=== PATIENT | male | born 1955 | race Caucasian/White ===

== ENCOUNTER 2019-10-24 12:55 | Inpatient (IN) | payer MEDICARE, OTHER ==
[2019-10-24] VITALS (10 sets, daily range): BP systolic 85–115; BP diastolic 54–75
[~2019-10-24] VITALS: Ht 170.2 cm; Wt 97.9 kg
--- NOTE | 2019-10-24 13:21 | RAD ---
PORTABLE CHEST 1V INDICATION: Syncope and fall. COMPARISON STUDY: None. FINDINGS: Lungs: Normal lung volume. No pulmonary mass or consolidation. The tracheobronchial tree and hilar structures are normal. Pleura: No pleural effusion or pneumothorax. Heart and Mediastinum: The cardiomediastinal silhouette is normal. The great vessels of the thorax are normal. IMPRESSION: No acute cardiopulmonary process. Electronically signed by: Gaurang Rosales MD (10/24/2019 1:17 PM) [id number]
[2019-10-24 13:32] LABS: BASO # 0.1 x10^3/uL (0.0-0.2); BASO % 1 % (0-3); EOS % 0 % (0-3); HEMATOCRIT 37.7 % (39.0-53.0); HEMOGLOBIN 13.1 g/dL (13.0-17.5); LYMPH # 0.9 x10^3/uL (1.0-4.8); LYMPH % 12 % (24-48); MEAN CORPUSCULAR HEMOGLOBIN 33 pg (25-35); MEAN CORPUSCULAR HGB CONC 35 g/dL (31-37); MEAN CORPUSCULAR VOLUME 95 fL (79-100); MONO # 0.5 x10^3/uL (0.0-1.1); MONO % 7 % (0-9); NEUT # 5.8 x10^3/uL (1.8-7.7); NEUT % 80 % (31-73); PLATELET COUNT 184 x10^3/uL (140-400); RED BLOOD COUNT 3.98 x10^6/uL (4.30-5.70); RED CELL DISTRIBUTION WIDTH 13.9 % (11.5-14.5); WHITE BLOOD COUNT 7.3 x10^3/uL (4.0-11.0)
--- NOTE | 2019-10-24 13:39 | RAD ---
CT HEAD AND CERVICAL SPINE WO Date: 10/24/2019 12:57 PM Clinical Indication: Syncope, fall, pain Comparison: None. Technique: 5 mm axial tomographic images were obtained of the head without contrast. These were viewed on brain and bone windows. CT imaging of the cervical spine was performed without contrast. Coronal and sagittal reformatted images were performed. One or more of the following dose reduction techniques were utilized: Automated exposure control (AEC), Adjustment of mA and/or kV according to patient size, Use of iterative reconstruction technique such as ASiR, CT scan done according to ALARA and image gently/image wisely HEAD FINDINGS: The brain parenchyma is normal in attenuation. No intra- or extra-axial mass or fluid collection. No acute hemorrhage. The ventricles are normal in size, shape, and morphology. The carcamo-white matter junction is normal. The basilar cisterns are patent. The visualized paranasal sinuses are normal. The visualized portions of the orbits and globes are normal. The mastoid air cells are clear. No aggressive osseous lesion or fracture. CERVICAL SPINE FINDINGS: Right convex curvature. No acute fracture. No aggressive lytic or blastic osseous lesion. Moderate multilevel degenerative disc height loss. Multilevel disc protrusions and marginal osteophytes results in multilevel mild spinal canal stenosis. Multilevel uncovertebral and moderate to severe facet arthrosis results in multilevel moderate and severe neural foraminal narrowing. The thyroid gland is normal. No cervical lymphadenopathy. The visualized aerodigestive tract is unremarkable. The visualized lung apices are clear. IMPRESSION: 1. No acute intracranial process. 2. No acute osseous abnormality of the cervical spine. Electronically signed by: Gaurang Rosales MD (10/24/2019 1:36 PM) [id number]
[2019-10-24 13:46] LABS: PROTHROMBIN TIME PATIENT 14.7 SEC (11.7-14.0)
[2019-10-24 13:56] LABS: ALBUMIN 2.5 g/dL (3.4-5.0); ALBUMIN/GLOBULIN RATIO 0.7 (1.0-1.7); CALCIUM 7.7 mg/dL (8.5-10.1); CREATININE 1.4 mg/dL (0.7-1.3); GFR 50.9; MAGNESIUM 1.7 mg/dL (1.8-2.4); POTASSIUM 3.6 mmol/L (3.5-5.1); TOTAL BILIRUBIN 3.8 mg/dL (0.2-1.0)
[2019-10-24] MEDS ORDERED: DIPH,PERTUSS(ACELL),TET VAC/PF 0.5 ML SYRINGE. VAX IM ONE (14:00)
[2019-10-24] MEDS ORDERED: IV NORMAL SALINE 1000ML BAG 1,000 ML IV ONE ×2 (14:00→14:15)
--- NOTE | 2019-10-24 14:16 | PHYS DOC ---
Past Medical History Past Medical History: Cancer, Hypertension, [place] Additional Past Medical Histor: KIDNEY CA Additional Past Surgical Histo: HERNIA Smoking Status: Former Smoker Alcohol Use: Occasionally General Adult EDM: Chief Complaint: SYNCOPE HPI: HPI: Patient is a 64 year old male with history of hypertension, coronary artery disease, right kidney cancer who presents via EMS with complaining of syncope. Patient states he was at work and around 1140 felt dizzy and did not lose his conscious but had a fall from his truck and, of the customary next door saw him and took him inside and called 911. Patient denies chest pain, shortness of breath, focal neuro deficit, history of the same problem, recent dehydration, fever and chills. Patient denies any pain at arrival. Patient brought into ER by EMS at 1300 with report of unwitnessed syncope and fall. Patient is not up-to-date with tetanus immunization. Review of Systems: Review of Systems: Constitutional: Denies fever or chills. [] Eyes: Denies change in visual acuity. [] HENT: Denies nasal congestion or sore throat. [] Respiratory: Denies cough or shortness of breath. [] Cardiovascular: Denies chest pain or edema. [] GI: Denies abdominal pain, nausea, vomiting, bloody stools or diarrhea. [] : Denies dysuria. [] Musculoskeletal: Denies back pain or joint pain. [] Integument: Denies rash. [] Neurologic: Denies headache, focal weakness or sensory changes. [] Endocrine: Denies polyuria or polydipsia. [] Lymphatic: Denies swollen glands. [] Psychiatric: Denies depression or anxiety. [] Heart Score: Risk Factors: Risk Factors: DM, Current or recent (<one month) smoker, HTN, HLP, family history of CAD, obesity. Risk Scores: Score 0 - 3: 2.5% MACE over next 6 weeks - Discharge Home Score 4 - 6: 20.3% MACE over next 6 weeks - Admit for Clinical Observation Score 7 - 10: 72.7% MACE over next 6 weeks - Early Invasive Strategies Current Medications: Current Medications Medications (Trade) Dose Ordered Sig/Lan Start Time Stop Time Status Last Admin Dose Admin Diphtheria/ Tetanus/Acell Pertussis (ADACEL TDap SYRINGE) 0.5 ml ONCE ONCE 10/24/19 14:00 10/24/19 14:02 DC 10/24/19 14:13 0.5 ML Sodium Chloride 1,000 ml @ 1,000 mls/hr 1X ONCE 10/24/19 14:15 10/24/19 15:14 UNV Allergies: Allergies: Allergies Coded Allergies Type Severity Reaction Last Updated Verified No Known Drug Allergies 10/24/19 No Physical Exam: PE: Constitutional: Well developed, well nourished, milde distress, non-toxic appearance. [] HENT: Normocephalic, lower lip contusion and a small abrasion, no tongue injury, right facial contusion, bilateral external ears normal, oropharynx moist, no oral exudates, nose normal. [] Eyes: PERRLA, EOMI, conjunctiva normal, no discharge, mild jaundice. [] Neck: Normal range of motion, no tenderness, supple, no stridor. [] Cardiovascular: Tachycardia, no murmur [] Lungs & Thorax: Bilateral breath sounds clear to auscultation [] Abdomen: Bowel sounds normal, soft, no tenderness, no masses, no pulsatile masses. [] Skin: Warm, dry, no erythema, no rash. [] Back: No tenderness, no CVA tenderness. [] Extremities: Right hand with several abrasion without laceration, no tenderness, no cyanosis, no clubbing, ROM intact, no edema. [] Neurologic: Alert and oriented X 3, normal motor function, normal sensory function, no focal deficits noted. [] Psychologic: Affect normal, judgement normal, mood normal. [] Current Patient Data: Labs: Laboratory Tests Test 10/24/19 12:05 10/24/19 13:05 D-Dimer (Ellen) 2.23 ug/mlFEU (0.00-0.50) H White Blood Count 7.3 x10^3/uL (4.0-11.0) Red Blood Count 3.98 x10^6/uL (4.30-5.70) L Hemoglobin 13.1 g/dL (13.0-17.5) Hematocrit 37.7 % (39.0-53.0) L Mean Corpuscular Volume 95 fL (79-100) Mean Corpuscular Hemoglobin 33 pg (25-35) Mean Corpuscular Hemoglobin Concent 35 g/dL (31-37) Red Cell Distribution Width 13.9 % (11.5-14.5) Platelet Count 184 x10^3/uL (140-400) Neutrophils (%) (Auto) 80 % (31-73) H Lymphocytes (%) (Auto) 12 % (24-48) L Monocytes (%) (Auto) 7 % (0-9) Eosinophils (%) (Auto) 0 % (0-3) Basophils (%) (Auto) 1 % (0-3) Neutrophils # (Auto) 5.8 x10^3/uL (1.8-7.7) Lymphocytes # (Auto) 0.9 x10^3/uL (1.0-4.8) L Monocytes # (Auto) 0.5 x10^3/uL (0.0-1.1) Eosinophils # (Auto) 0.0 x10^3/uL (0.0-0.7) Basophils # (Auto) 0.1 x10^3/uL (0.0-0.2) Prothrombin Time 14.7 SEC (11.7-14.0) H Prothrombin Time INR 1.2 (0.8-1.1) H Sodium Level 114 mmol/L (136-145) *L Potassium Level 3.6 mmol/L (3.5-5.1) Chloride Level 81 mmol/L (98-107) L Carbon Dioxide Level 15 mmol/L (21-32) L Anion Gap 18 (6-14) H Blood Urea Nitrogen 12 mg/dL (8-26) Creatinine 1.4 mg/dL (0.7-1.3) H Estimated GFR (Cockcroft-Gault) 50.9 BUN/Creatinine Ratio 9 (6-20) Glucose Level 171 mg/dL (70-99) H Lactic Acid Level 7.4 mmol/L (0.4-2.0) *H Calcium Level 7.7 mg/dL (8.5-10.1) L Magnesium Level 1.7 mg/dL (1.8-2.4) L Total Bilirubin 3.8 mg/dL (0.2-1.0) H Aspartate Amino Transferase (AST) 215 U/L (15-37) H Alanine Aminotransferase (ALT) 126 U/L (16-63) H Alkaline Phosphatase 374 U/L (46-116) H Creatine Kinase 849 U/L (39-308) H Troponin I Quantitative < 0.017 ng/mL (0.000-0.055) ZT-Own-Z-Type Natriuretic Peptide 351 pg/mL (0-124) H Total Protein 6.0 g/dL (6.4-8.2) L Albumin 2.5 g/dL (3.4-5.0) L Albumin/Globulin Ratio 0.7 (1.0-1.7) L Laboratory Tests 10/24/19 13:05 Laboratory Tests 10/24/19 13:05 Vital Signs: Vital Signs Date Time Temp Pulse Resp B/P (MAP) Pulse Ox O2 Delivery O2 Flow Rate FiO2 10/24/19 13:54 87 91/54 (66) 98 Room Air 10/24/19 12:55 98.4 18 98.4 EKG: EKG: EKG interpreted by me. EKG at 1301 showed sinus tachycardia at rate of 102, left atrial abnormality, l low voltage QRS, poor R wave progression anteroseptal leads, no acute ST and T wave elevation. Radiology/Procedures: Radiology/Procedures: [address] [address] IMAGING REPORT Signed PATIENT: RUSTY JOSEPH RACCOUNT: [id number] : 1955 LOCATION: ER AGE: 64 SEX: M EXAM STATUS: PRE ER ORD. PHYSICIAN: KATERYNA FERNANDEZ MD REASON: Syncope and fall PROCEDURE: PORTABLE CHEST 1V PORTABLE CHEST 1V INDICATION: Syncope and fall. COMPARISON STUDY: None. FINDINGS: Lungs: Normal lung volume. No pulmonary mass or consolidation. The tracheobronchial tree and hilar structures are normal. Pleura: No pleural effusion or pneumothorax. Heart and Mediastinum: The cardiomediastinal silhouette is normal. The great vessels of the thorax are normal. IMPRESSION: No acute cardiopulmonary process. Electronically signed by: Roberto Rosales MD (10/24/2019 1:17 PM) [id number] DICTATED and SIGNED BY: ROBERTO ROSALES MD DATE: 10/24/[address] [address] IMAGING REPORT Signed PATIENT: RUSTY JOSEPH RACCOUNT: [id number] : 1955 LOCATION: ER AGE: 64 SEX: M EXAM STATUS: PRE ER ORD. PHYSICIAN: KATERYNA FERNANDEZ MD REASON: Syncope and fall PROCEDURE: PORTABLE CHEST 1V PORTABLE CHEST 1V INDICATION: Syncope and fall. COMPARISON STUDY: None. FINDINGS: Lungs: Normal lung volume. No pulmonary mass or consolidation. The tracheobronchial tree and hilar structures are normal. Pleura: No pleural effusion or pneumothorax. Heart and Mediastinum: The cardiomediastinal silhouette is normal. The great vessels of the thorax are normal. IMPRESSION: No acute cardiopulmonary process. Electronically signed by: Roberto Rosales MD (10/24/2019 1:17 PM) [id number] DICTATED and SIGNED BY: ROBERTO ROSALES MD DATE: 10/24/191316 Course & Med Decision Making: Course & Med Decision Making Pertinent Labs and Imaging studies reviewed. (See chart for details) Evaluation of patient in ER showed 64-year-old male patient with syncope and fall with injury to his face. Patient was alert and oriented arrival to ER with mild tachycardia. Patient had blood pressure of more than 90s without fever and confusion. Patient had sodium of 114 without confusion or focal neuro deficit. Patient also had lactic acid of 7.4 without sign of postictal or seizure related to hyponatremia. Patient did not have fever. Blood pressure was more than 90 while he was in ER and tachycardia of 102 resolved after resting ER. Patient treated with IV fluids. Patient complaining of pain in his face and treated with Zofran and fentanyl. Patient had elevation of d-dimer and CT Urvashi of chest and abdomen/pelvic is pending. Patient had elevation of liver function tests and denied drinking alcohol frequently. On-call project management director Dr Krause was consulted at 1432 and agreed with plan of care. Patient requiring admission for further evaluation and treatment. Discussed with Dr. Nelson who is in agreement with admission. Discussed findings and plan with patient and family, who acknowledge understanding and agreement. Mary Disclaimer: Mary Disclaimer: This electronic medical record was generated, in whole or in part, using a voice recognition dictation system. Departure Departure Impression: Primary Impression: Hyponatremia Additional Impressions: Severe sepsis Syncope and collapse Facial contusion Qualified Codes: S00.83XS - Contusion of other part of head, sequela Contusion of right hand Qualified Codes: S60.221S - Contusion of right hand, sequela Elevated liver function tests Elevated d-dimer Traumatic rhabdomyolysis Qualified Codes: T79.6XXS - Traumatic ischemia of muscle, sequela Renal insufficiency History of kidney cancer Disposition: ADMITTED INPATIENT (At 1421) Admitting Physician: [place] (Dr. Nelson accepted admission at 1420) Condition: GUARDED Critical Care Time Critical care time was70 minutes exclusive of procedures. Date and Time of Reassessment Date: Oct 24, 2019 Time: 14:30 Fluid Challenge Is the fluid challenge complet: Yes IBW Target Volume Used: Yes BMI > 30: Yes Vital Signs Vital Signs: Vital Signs Date Time Temp Pulse Resp B/P (MAP) Pulse Ox O2 Delivery O2 Flow Rate FiO2 10/24/19 15:41 80 23 114/62 (79) 98 Room Air 10/24/19 12:55 98.4 98.4 Temperature Source: Oral Respirations Respiratory Pattern: Normal Cardiovascular Pulse Rhythm: Regular Heart: Nml rate, reg. rhythm Lung Sounds Breath Sounds: Clear Capillary Refil Capillary Refill: Rt Hand < 3 seconds Peripheral Pulse Pulse Location: Radial Pulse Strength: Normal (2+) Pulse Assessment Method: NIBP Integumentary Skin Moisture: Dry KATERYNA FERNANDEZ MD Oct 24, 2019 14:16
--- NOTE | 2019-10-24 14:21 | PDOC1 ---
History and Physical Date of Admission Date of Admission DATE: 10/24/19 TIME: 14:16 Identification/Chief Complaint Chief Complaint seen in er after suspected syncope // 64 year old male with history of hypertension, coronary artery disease, right kidney cancer who presents via EMS Patient states he was at work and around 1140 felt dizzy and did not lose ? conscious but had a fall from his truck a friend next door saw him and took him inside and called 911. Patient denies chest pain, shortness of breath, focal neuro deficit, no loss of bladder control, stool incontinence or tongue biting Na very low at 114 PANCREATIC HEAD MASS NOTED ON CT CTA CHEST NEG FOR PE Past Medical History Cardiovascular: CAD, Hyperlipidemia Heme/Onc: Cancer (? RENAL CELLL CA FOLLOWED BY [facility]) Musculoskeletal: Osteoarthritis Family History Family History: High Cholestrol, Hypertension Social History Smoke: No ALCOHOL: other (6 beers a week) Drugs: None Current Medications Current Medications Current Medications Diphtheria/ Tetanus/Acell Pertussis (ADACEL TDap SYRINGE) 0.5 ml ONCE ONCE VAX IM Last administered on 10/24/19at 14:13; Start 10/24/19 at 14:00; Stop 10/24/19 at 14:02; Status DC Sodium Chloride 1,000 ml @ 1,000 mls/hr 1X ONCE IV Last administered on 10/24/19at 14:12; Start 10/24/19 at 14:00; Stop 10/24/19 at 14:59 Sodium Chloride 1,000 ml @ 1,000 mls/hr 1X ONCE IV ; Start 10/24/19 at 14:15; Stop 10/24/19 at 15:14 Allergies Allergies: Coded Allergies: No Known Drug Allergies (Unverified , 10/24/19) ROS Review of System 14 pt ros otherwise neg, felt legs were too weak to hold him before fall General: YES: Fatigue; No: Chills, Night Sweats, Malaise, Appetite, Other PSYCHOLOGICAL ROS: No: Anxiety, Behavioral Disorder, Concentration difficultie, Decreased libido, Depression, Disorientation, Hallucinations, Hostility, Irritablity, Memory difficulties, Mood Swings, Obsessive thoughts, Physical abuse, Sexual abuse, Sleep disturbances, Suicidal ideation, Other Eyes: No Blurry vision, No Decreased vision, No Double vision, No Dry eyes, No Excessive tearing, No Eye Pain, No Itchy Eyes, No Loss of vision, No Photophobia, No Scotomata, No Uses contacts, No Uses glasses, No Other HEENT: No: Heacaches, Visual Changes, Hearing change, Nasal congestion, Nasal discharge, Oral lesions, Sinus pain, Sore Throat, Epistaxis, Sneezing, Snoring, Tinnitus, Vertigo, Vocal changes, Other ALLERGY AND IMMUNOLOGY: No: Hives, Insect Bite Sensitivity, Itchy/Watery Eyes, Nasal Congestion, Post Nasal Drip, Seasonal Allergies, Other Hematological and Lymphatic: No: Bleeding Problems, Blood Clots, Blood Transfusions, Brusing, Night Sweats, Pallor, Swollen Lymph Nodes, Other ENDOCRINE: No: Breast Changes, Galactorrhea, Hair Pattern Changes, Hot Flashes, Malaise/lethargy, Mood Swings, Palpitations, Polydipsia/polyuria, Skin Changes, Temperature Intolerance, Unexpected Weight Changes, Other Breast: No New/Changing Breast Lumps, No Nipple changes, No Nipple discharge, No Other Respiratory: No: Cough, Hemoptysis, Orthopnea, Pleuritic Pain, Shortness of breath, SOB with excertion, Sputum Changes, Stridor, Tachypnea, Wheezing, Other Cardiovascular: No Chest Pain, No Palpitations, No Orthopnea, No Paroxysmal Noc. Dyspnea, No Edema, No Lt Headedness, No Other Gastrointestinal: No Nausea, No Vomiting, No Abdominal Pain, No Diarrhea, No Constipation, No Melena, No Hematochezia, No Other Genitourinary: No Dysuria, No Frequency, No Incontinence, No Hematuria, No Retention, No Discharge, No Urgency, No Pain, No Flank Pain, No Other, No , No , No , No , No , No , No Musculoskeletal: Yes Gait Disturbance, Yes Muscular Weakness; No Joint Pain, No Joint Stiffness, No Joint Swelling, No Muscle Pain, No Pain In:, No Swelling In:, No Other Neurological: Yes Gait Disturbance; No Behavorial Changes, No Bowel/Bladder ControlChng, No Confusion, No Dizziness, No Headaches, No Impaired Coord/balance, No Memory Loss, No Numbness/Tingling, No Seizures, No Speech Problems, No Tremors, No Visual Changes, No Weakness, No Other Skin: No Dry Skin, No Eczema, No Hair Changes, No Lumps, No Mole Changes, No Mottling, No Nail Changes, No Pruritus, No Rash, No Skin Lesion Changes, No Other, No Acne Physical Exam Physical Exam Physical Exam: PE: Constitutional: Well developed, well nourished, mild distress, non-toxic appearance. [] HENT: Normocephalic, lower lip contusion and a small abrasion, no tongue injury, right facial contusion, bilateral external ears normal, oropharynx moist, no oral exudates, nose normal. [] Eyes: PERRLA, EOMI, conjunctiva normal, no discharge, mild jaundice. [] Neck: Normal range of motion, no tenderness, supple, no stridor. [] Cardiovascular: Tachycardia, no murmur [] Lungs & Thorax: Bilateral breath sounds clear to auscultation [] Abdomen: Bowel sounds normal, soft, no tenderness, no masses, no pulsatile mas ses. [] Skin: Warm, dry, no erythema, no rash. [] Back: No tenderness, no CVA tenderness. [] Extremities: Right hand with several abrasion without laceration, no tenderness, no cyanosis, no clubbing, ROM intact, no edema. [] Neurologic: Alert and oriented X 3, normal motor function, normal sensory function, no focal deficits noted. [] Psychologic: Affect normal, judgment normal, mood normal. [] General: Cooperative HEENT: EOMI, Mucous membr. moist/pink Lungs: Clear to auscultation, Normal air movement Heart: RRR, no thrills, no murmurs Breasts: Not examined Abdomen: Normal bowel sounds, Soft, No tenderness Rectal Exam: not examined PELVIC: Examination not indicated Extremities: No cyanosis Neuro: Normal speech, Sensation intact, Cranial nerves 3-12 NL Psych/Mental Status: Mental status NL, Mood NL Vitals Vitals Vital Signs Date Time Temp Pulse Resp B/P (MAP) Pulse Ox O2 Delivery O2 Flow Rate FiO2 10/24/19 13:54 87 91/54 (66) 98 Room Air 10/24/19 12:55 98.4 18 98.4 Labs Labs Laboratory Tests Test 10/24/19 12:05 10/24/19 13:05 D-Dimer (Ellen) 2.23 ug/mlFEU (0.00-0.50) White Blood Count 7.3 x10^3/uL (4.0-11.0) Red Blood Count 3.98 x10^6/uL (4.30-5.70) Hemoglobin 13.1 g/dL (13.0-17.5) Hematocrit 37.7 % (39.0-53.0) Mean Corpuscular Volume 95 fL (79-100) Mean Corpuscular Hemoglobin 33 pg (25-35) Mean Corpuscular Hemoglobin Concent 35 g/dL (31-37) Red Cell Distribution Width 13.9 % (11.5-14.5) Platelet Count 184 x10^3/uL (140-400) Neutrophils (%) (Auto) 80 % (31-73) Lymphocytes (%) (Auto) 12 % (24-48) Monocytes (%) (Auto) 7 % (0-9) Eosinophils (%) (Auto) 0 % (0-3) Basophils (%) (Auto) 1 % (0-3) Neutrophils # (Auto) 5.8 x10^3/uL (1.8-7.7) Lymphocytes # (Auto) 0.9 x10^3/uL (1.0-4.8) Monocytes # (Auto) 0.5 x10^3/uL (0.0-1.1) Eosinophils # (Auto) 0.0 x10^3/uL (0.0-0.7) Basophils # (Auto) 0.1 x10^3/uL (0.0-0.2) Prothrombin Time 14.7 SEC (11.7-14.0) Prothromb Time International Ratio 1.2 (0.8-1.1) Sodium Level 114 mmol/L (136-145) Potassium Level 3.6 mmol/L (3.5-5.1) Chloride Level 81 mmol/L (98-107) Carbon Dioxide Level 15 mmol/L (21-32) Anion Gap 18 (6-14) Blood Urea Nitrogen 12 mg/dL (8-26) Creatinine 1.4 mg/dL (0.7-1.3) Estimated GFR (Cockcroft-Gault) 50.9 BUN/Creatinine Ratio 9 (6-20) Glucose Level 171 mg/dL (70-99) Lactic Acid Level 7.4 mmol/L (0.4-2.0) Calcium Level 7.7 mg/dL (8.5-10.1) Magnesium Level 1.7 mg/dL (1.8-2.4) Total Bilirubin 3.8 mg/dL (0.2-1.0) Aspartate Amino Transf (AST/SGOT) 215 U/L (15-37) Alanine Aminotransferase (ALT/SGPT) 126 U/L (16-63) Alkaline Phosphatase 374 U/L (46-116) Creatine Kinase 849 U/L (39-308) Troponin I Quantitative < 0.017 ng/mL (0.000-0.055) UR-Tba-Q-Type Natriuretic Peptide 351 pg/mL (0-124) Total Protein 6.0 g/dL (6.4-8.2) Albumin 2.5 g/dL (3.4-5.0) Albumin/Globulin Ratio 0.7 (1.0-1.7) Laboratory Tests Test 10/24/19 12:05 10/24/19 13:05 D-Dimer (Ellen) 2.23 ug/mlFEU (0.00-0.50) White Blood Count 7.3 x10^3/uL (4.0-11.0) Red Blood Count 3.98 x10^6/uL (4.30-5.70) Hemoglobin 13.1 g/dL (13.0-17.5) Hematocrit 37.7 % (39.0-53.0) Mean Corpuscular Volume 95 fL (79-100) Mean Corpuscular Hemoglobin 33 pg (25-35) Mean Corpuscular Hemoglobin Concent 35 g/dL (31-37) Red Cell Distribution Width 13.9 % (11.5-14.5) Platelet Count 184 x10^3/uL (140-400) Neutrophils (%) (Auto) 80 % (31-73) Lymphocytes (%) (Auto) 12 % (24-48) Monocytes (%) (Auto) 7 % (0-9) Eosinophils (%) (Auto) 0 % (0-3) Basophils (%) (Auto) 1 % (0-3) Neutrophils # (Auto) 5.8 x10^3/uL (1.8-7.7) Lymphocytes # (Auto) 0.9 x10^3/uL (1.0-4.8) Monocytes # (Auto) 0.5 x10^3/uL (0.0-1.1) Eosinophils # (Auto) 0.0 x10^3/uL (0.0-0.7) Basophils # (Auto) 0.1 x10^3/uL (0.0-0.2) Prothrombin Time 14.7 SEC (11.7-14.0) Prothromb Time International Ratio 1.2 (0.8-1.1) Sodium Level 114 mmol/L (136-145) Potassium Level 3.6 mmol/L (3.5-5.1) Chloride Level 81 mmol/L (98-107) Carbon Dioxide Level 15 mmol/L (21-32) Anion Gap 18 (6-14) Blood Urea Nitrogen 12 mg/dL (8-26) Creatinine 1.4 mg/dL (0.7-1.3) Estimated GFR (Cockcroft-Gault) 50.9 BUN/Creatinine Ratio 9 (6-20) Glucose Level 171 mg/dL (70-99) Lactic Acid Level 7.4 mmol/L (0.4-2.0) Calcium Level 7.7 mg/dL (8.5-10.1) Magnesium Level 1.7 mg/dL (1.8-2.4) Total Bilirubin 3.8 mg/dL (0.2-1.0) Aspartate Amino Transf (AST/SGOT) 215 U/L (15-37) Alanine Aminotransferase (ALT/SGPT) 126 U/L (16-63) Alkaline Phosphatase 374 U/L (46-116) Creatine Kinase 849 U/L (39-308) Troponin I Quantitative < 0.017 ng/mL (0.000-0.055) KV-Qhl-Z-Type Natriuretic Peptide 351 pg/mL (0-124) Total Protein 6.0 g/dL (6.4-8.2) Albumin 2.5 g/dL (3.4-5.0) Albumin/Globulin Ratio 0.7 (1.0-1.7) Images Images CTA scan of the Chest with Contrast (Pulmonary Embolism protocol) 10/24/2019 Clinical History: Elevated d-dimer. Technique: After the intravenous administration of 80 cc of Omnipaque 350, contiguous, 0.625 mm axial sections were obtained through the chest. 2 mm axial and 3D MIP coronal and sagittal reconstructed images were obtained. One or more of the following individualized dose reduction techniques were utilized for this study: 1. Automated exposure control. 2. Adjustment of the mA and/or kV according to patient size. 3. Use of iterative reconstruction technique. Findings: The majority of the injected contrast is within the thoracic aorta. Suboptimal opacification of the pulmonary arteries with contrast is seen severely limiting the study. No obvious filling defect is seen within the major pulmonary arteries. The heart is borderline enlarged. Atherosclerotic calcification of the thoracic aorta and its branches is noted. The thoracic aorta is mildly tortuous but tapers normally. Extensive coronary artery calcifications are seen. An enlarged heterogeneous mediastinal lymph node is seen anterior and lateral to the inferior aspect of the thoracic aortic arch. This measures 3.1 cm in greatest diameter. No hilar or mediastinal lymphadenopathy is noted. Minimal dependent subsegmental atelectasis is seen involving both lungs. No area of consolidation is seen. No pulmonary mass is noted. Pleural effusion or pneumothorax is seen. IMPRESSION: 1. There is suboptimal opacification of the pulmonary arteries with contrast limiting the sensitivity of this study. No obvious filling defect is seen within the major pulmonary arteries. 2. 3.1 cm enlarged mediastinal lymph node concerning for a neoplastic process or metastatic lymphadenopathy. CT scan of the abdomen and pelvis with contrast 10/24/2019 CLINICAL HISTORY: Elevated liver function tests. Abdominal pain. TECHNIQUE: After the oral administration of 80 cc of Omnipaque 350 only, contiguous, 5 mm axial sections were obtained through the abdomen and pelvis. One or more of the following individualized dose reduction techniques were utilized for this study: 1. Automated exposure control. 2. Adjustment of the mA and/or kV according to patient size. 3. Use of iterative reconstruction technique. FINDINGS: Images through the lung bases demonstrate minimal dependent subsegmental atelectasis bilaterally. The liver parenchyma has a decreased attenuation consistent with fatty infiltration. The liver is mildly enlarged measuring 21 cm in length. The spleen, adrenal glands and left kidney are within normal limits. Areas of scarring are seen involving the superior/midpole the right kidney. Fullness of the head of the pancreas is seen. Increased density is seen within the fat surrounding the pancreas and duodenum. These findings likely reflect acute pancreatitis. Clinical correlation is recommended. No pancreatic pseudocyst is seen. Suspected pancreatic phlegmon extends laterally to the right anterior to the right kidney. Atherosclerotic calcification of the abdominal aorta and its branches is seen. The abdominal aorta tapers normally. Small amount of ascites is seen surrounding the liver and spleen. The gallbladder is contracted. No free air is noted. There is no evidence of bowel obstruction. Images through the pelvis demonstrate the urinary bladder distended with urine. Surgical clips are seen within the anterior abdominal wall. Calcifications are seen within the pelvis consistent with phleboliths. A small amount of ascites is seen within the pelvis. Multiple diverticula are seen involving the sigmoid colon. No inflammatory changes are seen adjacent fat. Degenerative changes are seen involving the lower thoracic and throughout the lumbar spine along with both hips. Very mild S-shaped curvature of the thoracolumbar spine is seen. IMPRESSION: 1. Findings are seen which are felt to most likely reflect acute pancreatitis as discussed above. Clinical correlation is recommended. No pancreatic pseudocyst is seen. 2. Small amount of ascites is seen within the abdomen and pelvis. Electronically signed by: Michael Paul MD (10/24/2019 3:36 PM) [id number] DICTATED and SIGNED BY: MICHAEL PAUL MD DATE: 10/24/19 1536 PORTABLE CHEST 1V INDICATION: Syncope and fall. COMPARISON STUDY: None. FINDINGS: Lungs: Normal lung volume. No pulmonary mass or consolidation. The tracheobronchial tree and hilar structures are normal. Pleura: No pleural effusion or pneumothorax. Heart and Mediastinum: The cardiomediastinal silhouette is normal. The great vessels of the thorax are normal. IMPRESSION: No acute cardiopulmonary process. Electronically signed by: Roberto Rosales MD (10/24/2019 1:17 PM) [id number] DICTATED and SIGNED BY: ROBERTO ROSALES MD DATE: 10/24/[address] HEAD AND CERVICAL SPINE WO Date: 10/24/2019 12:57 PM Clinical Indication: Syncope, fall, pain Comparison: None. Technique: 5 mm axial tomographic images were obtained of the head without contrast. These were viewed on brain and bone windows. CT imaging of the cervical spine was performed without contrast. Coronal and sagittal reformatted images were performed. One or more of the following dose reduction techniques were utilized: Automated exposure control (AEC), Adjustment of mA and/or kV according to patient size, Use of iterative reconstruction technique such as ASiR, CT scan done according to ALARA and image gently/image wisely HEAD FINDINGS: The brain parenchyma is normal in attenuation. No intra- or extra-axial mass or fluid collection. No acute hemorrhage. The ventricles are normal in size, shape, and morphology. The carcamo-white matter junction is normal. The basilar cisterns are patent. The visualized paranasal sinuses are normal. The visualized portions of the orbits and globes are normal. The mastoid air cells are clear. No aggressive osseous lesion or fracture. CERVICAL SPINE FINDINGS: Right convex curvature. No acute fracture. No aggressive lytic or blastic osseous lesion. Moderate multilevel degenerative disc height loss. Multilevel disc protrusions and marginal osteophytes results in multilevel mild spinal canal stenosis. Multilevel uncovertebral and moderate to severe facet arthrosis results in multilevel moderate and severe neural foraminal narrowing. The thyroid gland is normal. No cervical lymphadenopathy. The visualized aerodigestive tract is unremarkable. The visualized lung apices are clear. IMPRESSION: 1. No acute intracranial process. 2. No acute osseous abnormality of the cervical spine. Electronically signed by: Roberto Rosales MD (10/24/2019 1:36 PM) [id number] VTE Prophylaxis Ordered VTE Prophylaxis Devices: Yes VTE Pharmacological Prophylaxi: Yes Assessment/Plan Assessment/Plan IMPRESSION: 1. No acute intracranial process. 2. No acute osseous abnormality of the cervical spine. 3. SEVERE HYPONATREMIA 4. LACTIC ACIDOSIS 5. 3.1 cm enlarged mediastinal lymph node concerning for a neoplastic process or metastatic lymphadenopathy. by ct 6. Fullness of the head of the pancreas is seen. Increased density is seen within the fat surrounding the pancreas and duodenum. c/w acute pancreatitis. No pancreatic pseudocyst is seen. Suspected pancreatic phlegmon extends laterally to the right anterior to the right kidney. 7. transaminitis 8. elevated d- dimer 9. Areas of scarring are seen involving the superior/midpole the right kidney.? renal cell carcinoma? 10. anion gap metabolic acidosis 11. Small amount of ascites is seen within the abdomen and pelvis. PLAN ADMIT ICU BED nephrology consult GI CONSULT NPO NEUROCHECKS Q 4 HRS Neurology consult frequent labs blood and urine cultures straight cath prn acute hepatitis dx panel emperic iv zosyn follow lactic acid with reflex serum and urine osmolality need [facility] RECORDS 38 min cc time GAVIN CONDE MD Oct 24, 2019 14:20
[2019-10-24] MEDS ORDERED: IOHEXOL 350 MG/ML 100 ML VIAL. IV ONE (14:30)
[2019-10-24] MEDS ORDERED: CONTRAST GIVEN. MC PRN (14:30)
[2019-10-24] MEDS ORDERED: PIPERACILLIN/TAZOBACTAM 3.375 GM in IV NORMAL SALINE 50ML 50 ML IV ONE (14:30)
[2019-10-24] MEDS ORDERED: VANCOMYCIN 1.75 GM in IV NORMAL SALINE 500ML BAG 500 ML IV ONE (14:30)
[2019-10-24] MEDS ORDERED: VANCOMYCIN 1GM IVPB FOR OMNI 250 ML IV ONE (14:30)
[2019-10-24] MEDS ORDERED: fentaNYL PF VIAL 100 MCG/2 ML VIAL IVP ONE (15:00)
[2019-10-24] MEDS ORDERED: ONDANSETRON PF 4 MG/2 ML VIAL. IVP ONE (15:00)
--- NOTE | 2019-10-24 15:38 | RAD ---
CTA scan of the Chest with Contrast (Pulmonary Embolism protocol) 10/24/2019 Clinical History: Elevated d-dimer. Technique: After the intravenous administration of 80 cc of Omnipaque 350, contiguous, 0.625 mm axial sections were obtained through the chest. 2 mm axial and 3D MIP coronal and sagittal reconstructed images were obtained. One or more of the following individualized dose reduction techniques were utilized for this study: 1. Automated exposure control. 2. Adjustment of the mA and/or kV according to patient size. 3. Use of iterative reconstruction technique. Findings: The majority of the injected contrast is within the thoracic aorta. Suboptimal opacification of the pulmonary arteries with contrast is seen severely limiting the study. No obvious filling defect is seen within the major pulmonary arteries. The heart is borderline enlarged. Atherosclerotic calcification of the thoracic aorta and its branches is noted. The thoracic aorta is mildly tortuous but tapers normally. Extensive coronary artery calcifications are seen. An enlarged heterogeneous mediastinal lymph node is seen anterior and lateral to the inferior aspect of the thoracic aortic arch. This measures 3.1 cm in greatest diameter. No hilar or mediastinal lymphadenopathy is noted. Minimal dependent subsegmental atelectasis is seen involving both lungs. No area of consolidation is seen. No pulmonary mass is noted. Pleural effusion or pneumothorax is seen. IMPRESSION: 1. There is suboptimal opacification of the pulmonary arteries with contrast limiting the sensitivity of this study. No obvious filling defect is seen within the major pulmonary arteries. 2. 3.1 cm enlarged mediastinal lymph node concerning for a neoplastic process or metastatic lymphadenopathy. CT scan of the abdomen and pelvis with contrast 10/24/2019 CLINICAL HISTORY: Elevated liver function tests. Abdominal pain. TECHNIQUE: After the oral administration of 80 cc of Omnipaque 350 only, contiguous, 5 mm axial sections were obtained through the abdomen and pelvis. One or more of the following individualized dose reduction techniques were utilized for this study: 1. Automated exposure control. 2. Adjustment of the mA and/or kV according to patient size. 3. Use of iterative reconstruction technique. FINDINGS: Images through the lung bases demonstrate minimal dependent subsegmental atelectasis bilaterally. The liver parenchyma has a decreased attenuation consistent with fatty infiltration. The liver is mildly enlarged measuring 21 cm in length. The spleen, adrenal glands and left kidney are within normal limits. Areas of scarring are seen involving the superior/midpole the right kidney. Fullness of the head of the pancreas is seen. Increased density is seen within the fat surrounding the pancreas and duodenum. These findings likely reflect acute pancreatitis. Clinical correlation is recommended. No pancreatic pseudocyst is seen. Suspected pancreatic phlegmon extends laterally to the right anterior to the right kidney. Atherosclerotic calcification of the abdominal aorta and its branches is seen. The abdominal aorta tapers normally. Small amount of ascites is seen surrounding the liver and spleen. The gallbladder is contracted. No free air is noted. There is no evidence of bowel obstruction. Images through the pelvis demonstrate the urinary bladder distended with urine. Surgical clips are seen within the anterior abdominal wall. Calcifications are seen within the pelvis consistent with phleboliths. A small amount of ascites is seen within the pelvis. Multiple diverticula are seen involving the sigmoid colon. No inflammatory changes are seen adjacent fat. Degenerative changes are seen involving the lower thoracic and throughout the lumbar spine along with both hips. Very mild S-shaped curvature of the thoracolumbar spine is seen. IMPRESSION: 1. Findings are seen which are felt to most likely reflect acute pancreatitis as discussed above. Clinical correlation is recommended. No pancreatic pseudocyst is seen. 2. Small amount of ascites is seen within the abdomen and pelvis. Electronically signed by: Michael Paul MD (10/24/2019 3:36 PM) [id number]
--- NOTE | 2019-10-24 16:00 | NUR ---
Pt to unit by cart. Pt placed in ICU bed and put on monitor. Pt A&Ox4. VSS. Afebrile. Will monitor closely.
[2019-10-24] MEDS ORDERED: ALBUTEROL SULFATE 2.5 MG/3 ML NEBU. NEB PRN (17:00)
[2019-10-24] MEDS ORDERED: SODIUM PHOSPHATES 19/7GM 133 ML ENEMA. PR PRN (17:00)
[2019-10-24] MEDS ORDERED: ACETAMINOPHEN 325 MG TABLET. PO PRN (17:00)
[2019-10-24] MEDS ORDERED: ONDANSETRON PF 4 MG/2 ML VIAL. IV PRN (17:00)
[2019-10-24] MEDS ORDERED: DOCUSATE SODIUM 100 MG CAPSULE. PO PRN (17:00)
[2019-10-24] MEDS ORDERED: guaiFENesin ORAL 200 MG/10 ML LIQUID. PO PRN (17:00)
[2019-10-24] MEDS ORDERED: 0.9 % SODIUM CHLORIDE 10 ML DISP.SYRIN. IV PRN (17:00)
[2019-10-24] MEDS ORDERED: ICOS1CAP PO (17:03)
[2019-10-24] MEDS ORDERED: LEVO75TA5 PO (17:03)
[2019-10-24] MEDS ORDERED: METO25TA2 PO (17:03)
[2019-10-24] MEDS ORDERED: ATOR40TA59 PO (17:03)
[2019-10-24] MEDS ORDERED: AMLO10TA8 PO (17:03)
[2019-10-24] MEDS ORDERED: IRBE300T23 PO (17:29)
[2019-10-24] MEDS: PIPERACILLIN/TAZOBACTAM 3.375 GM in IV NORMAL SALINE 50ML 50 ML IV SCH (18:00)
[2019-10-24 18:05] LABS: CALCIUM 7.3 mg/dL (8.5-10.1); CREATININE 1.1 mg/dL (0.7-1.3); GFR 67.2; POTASSIUM 3.8 mmol/L (3.5-5.1)
[2019-10-24] MEDS ORDERED: SODIUM CHLORIDE 3 % 500 ML IV ONE (18:45)
[2019-10-24] MEDS: IV NORMAL SALINE 1000ML BAG 1,000 ML IV SCH ×2 (19:53→20:58)
--- NOTE | 2019-10-24 20:38 | EKG ---
[facility] [address] [place] [address] Test Date: 2019-10-24 Test Time: 13:01:52 Pat Name: RUSTY JOSEPH Department: Room: 266 1 Gender: M [employer] Super[employer]: : [id number] Requested By: KATERYNA FERNANDEZ Order Number: [id number] Reading MD: Joao Hastings MD Measurements Intervals [place] Rate: 102 P: 0 MT: 162 QRS: 22 QRSD: 104 T: 73 QT: 342 QTc: 450 Interpretive Statements SINUS TACHYCARDIA NON-SPECIFIC ST/T CHANGES Electronically Signed On 10-26-2019 9:43:13 CDT by Joao Hastings MD
[2019-10-25] VITALS (23 sets, daily range): BP systolic 91–133; BP diastolic 50–77
[2019-10-25] MEDS: PIPERACILLIN/TAZOBACTAM 3.375 GM in IV NORMAL SALINE 50ML 50 ML IV SCH ×4 (00:16→17:04)
[2019-10-25 01:05] LABS: CALCIUM 7.4 mg/dL (8.5-10.1); POTASSIUM 3.6 mmol/L (3.5-5.1)
[2019-10-25] MEDS: IV NORMAL SALINE 1000ML BAG 1,000 ML IV SCH ×3 (02:37→20:55)
[2019-10-25 06:04] LABS: CALCIUM 7.3 mg/dL (8.5-10.1); CREATININE 0.8 mg/dL (0.7-1.3); POTASSIUM 3.7 mmol/L (3.5-5.1)
[2019-10-25] MEDS: ENOXAPARIN 40 MG/0.4 ML SYRINGE. SQ SCH (08:57)
[2019-10-25] MEDS ORDERED: LOPERAMIDE 2 MG CAPSULE PO PRN (12:15)
[2019-10-25] MEDS ORDERED: SODIUM CHLORIDE 3 % 150 ML IV ONE (12:30)
--- NOTE | 2019-10-25 13:03 | PDOC2 ---
CONSULT Date of Consult Date of Consult DATE: 10/25/19 TIME: 12:53 Reason for Consult Reason for Consult: LOW NA Referring Physician Referring Physician: AMAYA Identification/Chief Complaint Chief Complaint NEAR SYNCOPE Source Source: Chart review, Patient History of Present Illness Reason for Visit: THIS IS A 64 YR OLD WITH DIZZINESS. HE FELL FROM HIS TRUCK AND 911 WAS CALLED. NOTED TO HAVE SOME ABRASIONS. APPARENTLY NEAR SYNCOPE. ON EVALUATION IN THE ER NOTED TO HAVE A NA OF 118. NO PRIOR HX OF SUCH. DENIED EXCESSIVE WATER OR ETOH INTAKE. ? HX POS FOR R RCCA , IMAGING NOTABLE FOR SOME SCARRING OF THE RIGHT KIDNEY MID POLE AREA POSSIBLY CRYOABLATION. HE CANNOT GIVE ME ANY DETAIL. UNABLE TO FIND ANY DOCUMENTATION. IMAGING ALSO CONCERNING FOR MEDIASTINAL ADENOPATHY AND ? PANCREATIC MASS. NO RENAL ISSUES. PT ABLE TO GIVE HX BUT NOT VERY CLEAR. BELOW ER AND ATTENDING NOTES REVIEWED seen in er after suspected syncope // 64 year old male with history of hypertension, coronary artery disease, right kidney cancer who presents via EMS Patient states he was at work and around 1140 felt dizzy and did not lose ? conscious but had a fall from his truck a friend next door saw him and took him inside and called 911. Patient denies chest pain, shortness of breath, focal neuro deficit, no loss of bladder control, stool incontinence or tongue biting Na very low at 114 PANCREATIC HEAD MASS NOTED ON CT Patient is a 64 year old male with history of hypertension, coronary artery disease, right kidney cancer who presents via EMS with complaining of syncope. Patient states he was at work and around 1140 felt dizzy and did not lose his conscious but had a fall from his truck and, of the customary next door saw him and took him inside and called 911. Patient denies chest pain, shortness of breath, focal neuro deficit, history of the same problem, recent dehydration, fever and chills. Patient denies any pain at arrival. Patient brought into ER by EMS at 1300 with report of unwitnessed syncope and fall. Patient is not up-to-date with tetanus immunization. Past Medical History Cardiovascular: CAD, Hyperlipidemia Heme/Onc: Cancer (? RENAL CELLL CA FOLLOWED BY [facility]) Musculoskeletal: Osteoarthritis Family History Family History: High Cholestrol, Hypertension Social History No ALCOHOL: other (6 beers a week) Drugs: None Current Problem List Problem List Problems Medical Problems: (1) Contusion of right hand Status: Acute (2) Elevated d-dimer Status: Acute (3) Elevated liver function tests Status: Acute (4) Facial contusion Status: Acute (5) History of kidney cancer Status: Acute (6) Hyponatremia Status: Acute (7) Renal insufficiency Status: Acute (8) Severe sepsis Status: Acute (9) Syncope and collapse Status: Acute (10) Traumatic rhabdomyolysis Status: Acute Current Medications Current Medications Current Medications Diphtheria/ Tetanus/Acell Pertussis (ADACEL TDap SYRINGE) 0.5 ml ONCE ONCE VAX IM Last administered on 10/24/19at 14:13; Start 10/24/19 at 14:00; Stop 10/24/19 at 14:02; Status DC Sodium Chloride 1,000 ml @ 1,000 mls/hr 1X ONCE IV Last administered on 10/24/19at 14:12; Start 10/24/19 at 14:00; Stop 10/24/19 at 14:59; Status DC Sodium Chloride 1,000 ml @ 1,000 mls/hr 1X ONCE IV Last administered on 06/03at 14:52; Start 10/24/19 at 14:15; Stop 10/24/19 at 15:14; Status DC Piperacillin Sod/ Tazobactam Sod 3.375 gm/Sodium Chloride 50 ml @ 100 mls/hr 1X ONCE IV Last administered on 10/24/19at 14:52; Start 10/24/19 at 14:30; Stop 10/24/19 at 14:59; Status DC Vancomycin HCl 250 ml @ 250 mls/hr 1X ONCE IV ; Start 10/24/19 at 14:30; Stop 10/24/19 at 15:29; Status UNV Vancomycin HCl 1.75 gm/Sodium Chloride 500 ml @ 250 mls/hr 1X ONCE IV Last administered on 10/24/19at 15:18; Start 10/24/19 at 14:30; Stop 10/24/19 at 16:29; Status DC Iohexol (Omnipaque 350 Mg/ml) 80 ml 1X ONCE IV Last administered on 10/24/19at 15:10; Start 10/24/19 at 14:30; Stop 10/24/19 at 14:31; Status DC Info (CONTRAST GIVEN -- Rx MONITORING) 1 each PRN DAILY PRN MC SEE COMMENTS; Start 10/24/19 at 14:30; Stop 10/26/19 at 14:29 Sodium Chloride 1,000 ml @ 150 mls/hr Q6H40M IV Last administered on 10/25/19at 11:57; Start 10/24/19 at 14:27; Stop 10/25/19 at 14:26 Ondansetron HCl (Zofran) 4 mg 1X ONCE IVP Last administered on 10/24/19at 15:14; Start 10/24/19 at 15:00; Stop 10/24/19 at 15:01; Status DC Fentanyl Citrate (Fentanyl 2ml Vial) 50 mcg 1X ONCE IVP Last administered on 10/24/19at 15:15; Start 10/24/19 at 15:00; Stop 10/24/19 at 15:02; Status DC Sodium Chloride (Normal Saline Flush) 3 ml QSHIFT PRN IV AFTER MEDS AND BLOOD DRAWS; Start 10/24/19 at 17:00 Ondansetron HCl (Zofran) 4 mg PRN Q4HRS PRN IV NAUSEA/VOMITING; Start 10/24/19 at 17:00 Acetaminophen (Tylenol) 650 mg PRN Q4HRS PRN PO TEMP OVER 100.4F OR MILD PAIN; Start 10/24/19 at 17:00 Sodium Monofluorophosphate (Fleet Adult) 133 ml PRN DAILY PRN CO CONSTIPATION; Start 10/24/19 at 17:00 Docusate Sodium (Colace) 100 mg PRN BID PRN PO HARD STOOLS; Start 10/24/19 at 17:00 Albuterol Sulfate (Ventolin Neb Soln) 2.5 mg PRN Q4HRS PRN NEB SHORTNESS OF BREATH; Start 10/24/19 at 17:00 Guaifenesin (Robitussin) 200 mg PRN Q4HRS PRN PO COUGH; Start 10/24/19 at 17:00 Enoxaparin Sodium (Lovenox 40mg Syringe) 40 mg Q24H SQ Last administered on 10/25/19at 08:57; Start 10/25/19 at 09:00 Piperacillin Sod/ Tazobactam Sod 3.375 gm/Sodium Chloride 50 ml @ 100 mls/hr Q6HRS IV Last administered on 10/25/19at 08:23; Start 10/24/19 at 18:00 Sodium Chloride 500 ml @ 50 mls/hr 1X ONCE IV Last administered on 10/24/19at 19:52; Start 10/24/19 at 18:45; Stop 10/25/19 at 04:44; Status DC Sodium Chloride 150 ml @ 50 mls/hr 1X ONCE IV Last administered on 10/25/19at 12:11; Start 10/25/19 at 12:30; Stop 10/25/19 at 15:29 Loperamide HCl (Imodium) 2 mg PRN Q15MIN PRN PO DIARRHEA; Start 10/25/19 at 12:15 Active Scripts Active Reported Irbesartan 300 Mg Tablet 300 Mg PO DAILY Toprol Xl (Metoprolol Succinate) 25 Mg Tab.er.24h 50 Mg PO DAILY Atorvastatin Calcium 40 Mg Tablet 1 Tab PO DAILY Amlodipine Besylate 10 Mg Tablet 10 Mg PO DAILY Vascepa (Icosapent Ethyl) 1 Gm Capsule 2 Cap PO BID 30 Days Levothyroxine Sodium 75 Mcg Tablet 1 Tab PO DAILY Allergies Allergies: Coded Allergies: No Known Drug Allergies (Unverified , 10/24/19) ROS Review of System NOT RELIABLE Physical Exam General: Alert, Oriented X3, Cooperative, No acute distress Lungs: Clear to auscultation Heart: Regular rate Abdomen: Normal bowel sounds Extremities: No clubbing Skin: No breakdown Neuro: Normal speech, Sensation intact Psych/Mental Status: Mental status NL, Mood NL MUSCULOSKELETAL: No joint tenderness, No deformity, No swelling Vitals VITALS Vital Signs Date Time Temp Pulse Resp B/P (MAP) Pulse Ox O2 Delivery O2 Flow Rate FiO2 10/25/19 12:00 98.4 79 22 118/73 (88) 97 Room Air 98.4 Labs Labs Laboratory Tests Test 10/24/19 12:05 10/24/19 13:05 10/24/19 17:30 10/25/19 00:20 D-Dimer (Ellen) 2.23 ug/mlFEU (0.00-0.50) White Blood Count 7.3 x10^3/uL (4.0-11.0) Red Blood Count 3.98 x10^6/uL (4.30-5.70) Hemoglobin 13.1 g/dL (13.0-17.5) Hematocrit 37.7 % (39.0-53.0) Mean Corpuscular Volume 95 fL (79-100) Mean Corpuscular Hemoglobin 33 pg (25-35) Mean Corpuscular Hemoglobin Concent 35 g/dL (31-37) Red Cell Distribution Width 13.9 % (11.5-14.5) Platelet Count 184 x10^3/uL (140-400) Neutrophils (%) (Auto) 80 % (31-73) Lymphocytes (%) (Auto) 12 % (24-48) Monocytes (%) (Auto) 7 % (0-9) Eosinophils (%) (Auto) 0 % (0-3) Basophils (%) (Auto) 1 % (0-3) Neutrophils # (Auto) 5.8 x10^3/uL (1.8-7.7) Lymphocytes # (Auto) 0.9 x10^3/uL (1.0-4.8) Monocytes # (Auto) 0.5 x10^3/uL (0.0-1.1) Eosinophils # (Auto) 0.0 x10^3/uL (0.0-0.7) Basophils # (Auto) 0.1 x10^3/uL (0.0-0.2) Prothrombin Time 14.7 SEC (11.7-14.0) Prothromb Time International Ratio 1.2 (0.8-1.1) Sodium Level 114 mmol/L (136-145) 118 mmol/L (136-145) 122 mmol/L (136-145) Potassium Level 3.6 mmol/L (3.5-5.1) 3.8 mmol/L (3.5-5.1) 3.6 mmol/L (3.5-5.1) Chloride Level 81 mmol/L (98-107) 87 mmol/L (98-107) 92 mmol/L (98-107) Carbon Dioxide Level 15 mmol/L (21-32) 18 mmol/L (21-32) 19 mmol/L (21-32) Anion Gap 18 (6-14) 13 (6-14) 11 (6-14) Blood Urea Nitrogen 12 mg/dL (8-26) 13 mg/dL (8-26) 11 mg/dL (8-26) Creatinine 1.4 mg/dL (0.7-1.3) 1.1 mg/dL (0.7-1.3) 1.0 mg/dL (0.7-1.3) Estimated GFR (Cockcroft-Gault) 50.9 67.2 75.0 BUN/Creatinine Ratio 9 (6-20) Glucose Level 171 mg/dL (70-99) 100 mg/dL (70-99) 87 mg/dL (70-99) Lactic Acid Level 7.4 mmol/L (0.4-2.0) 2.3 mmol/L (0.4-2.0) Calcium Level 7.7 mg/dL (8.5-10.1) 7.3 mg/dL (8.5-10.1) 7.4 mg/dL (8.5-10.1) Phosphorus Level 3.4 mg/dL (2.6-4.7) Magnesium Level 1.7 mg/dL (1.8-2.4) Total Bilirubin 3.8 mg/dL (0.2-1.0) Aspartate Amino Transf (AST/SGOT) 215 U/L (15-37) Alanine Aminotransferase (ALT/SGPT) 126 U/L (16-63) Alkaline Phosphatase 374 U/L (46-116) Creatine Kinase 849 U/L (39-308) Troponin I Quantitative < 0.017 ng/mL (0.000-0.055) [id number]-Type Natriuretic Peptide 351 pg/mL (0-124) Total Protein 6.0 g/dL (6.4-8.2) Albumin 2.5 g/dL (3.4-5.0) Albumin/Globulin Ratio 0.7 (1.0-1.7) Lipase 311 U/L (73-393) 138 U/L (73-393) Thyroid Stimulating Hormone (TSH) 1.435 uIU/mL (0.358-3.74) Test 10/25/19 05:45 Sodium Level 122 mmol/L (136-145) Potassium Level 3.7 mmol/L (3.5-5.1) Chloride Level 93 mmol/L (98-107) Carbon Dioxide Level 18 mmol/L (21-32) Anion Gap 11 (6-14) Blood Urea Nitrogen 10 mg/dL (8-26) Creatinine 0.8 mg/dL (0.7-1.3) Estimated GFR (Cockcroft-Gault) 97.0 Glucose Level 81 mg/dL (70-99) Lactic Acid Level 0.8 mmol/L (0.4-2.0) Calcium Level 7.3 mg/dL (8.5-10.1) Magnesium Level 2.0 mg/dL (1.8-2.4) Laboratory Tests Test 10/24/19 13:05 10/24/19 17:30 10/25/19 00:20 10/25/19 05:45 White Blood Count 7.3 x10^3/uL (4.0-11.0) Red Blood Count 3.98 x10^6/uL (4.30-5.70) Hemoglobin 13.1 g/dL (13.0-17.5) Hematocrit 37.7 % (39.0-53.0) Mean Corpuscular Volume 95 fL (79-100) Mean Corpuscular Hemoglobin 33 pg (25-35) Mean Corpuscular Hemoglobin Concent 35 g/dL (31-37) Red Cell Distribution Width 13.9 % (11.5-14.5) Platelet Count 184 x10^3/uL (140-400) Neutrophils (%) (Auto) 80 % (31-73) Lymphocytes (%) (Auto) 12 % (24-48) Monocytes (%) (Auto) 7 % (0-9) Eosinophils (%) (Auto) 0 % (0-3) Basophils (%) (Auto) 1 % (0-3) Neutrophils # (Auto) 5.8 x10^3/uL (1.8-7.7) Lymphocytes # (Auto) 0.9 x10^3/uL (1.0-4.8) Monocytes # (Auto) 0.5 x10^3/uL (0.0-1.1) Eosinophils # (Auto) 0.0 x10^3/uL (0.0-0.7) Basophils # (Auto) 0.1 x10^3/uL (0.0-0.2) Prothrombin Time 14.7 SEC (11.7-14.0) Prothromb Time International Ratio 1.2 (0.8-1.1) Sodium Level 114 mmol/L (136-145) 118 mmol/L (136-145) 122 mmol/L (136-145) 122 mmol/L (136-145) Potassium Level 3.6 mmol/L (3.5-5.1) 3.8 mmol/L (3.5-5.1) 3.6 mmol/L (3.5-5.1) 3.7 mmol/L (3.5-5.1) Chloride Level 81 mmol/L (98-107) 87 mmol/L (98-107) 92 mmol/L (98-107) 93 mmol/L (98-107) Carbon Dioxide Level 15 mmol/L (21-32) 18 mmol/L (21-32) 19 mmol/L (21-32) 18 mmol/L (21-32) Anion Gap 18 (6-14) 13 (6-14) 11 (6-14) 11 (6-14) Blood Urea Nitrogen 12 mg/dL (8-26) 13 mg/dL (8-26) 11 mg/dL (8-26) 10 mg/dL (8-26) Creatinine 1.4 mg/dL (0.7-1.3) 1.1 mg/dL (0.7-1.3) 1.0 mg/dL (0.7-1.3) 0.8 mg/dL (0.7-1.3) Estimated GFR (Cockcroft-Gault) 50.9 67.2 75.0 97.0 BUN/Creatinine Ratio 9 (6-20) Glucose Level 171 mg/dL (70-99) 100 mg/dL (70-99) 87 mg/dL (70-99) 81 mg/dL (70-99) Lactic Acid Level 7.4 mmol/L (0.4-2.0) 2.3 mmol/L (0.4-2.0) 0.8 mmol/L (0.4-2.0) Calcium Level 7.7 mg/dL (8.5-10.1) 7.3 mg/dL (8.5-10.1) 7.4 mg/dL (8.5-10.1) 7.3 mg/dL (8.5-10.1) Phosphorus Level 3.4 mg/dL (2.6-4.7) Magnesium Level 1.7 mg/dL (1.8-2.4) 2.0 mg/dL (1.8-2.4) Total Bilirubin 3.8 mg/dL (0.2-1.0) Aspartate Amino Transf (AST/SGOT) 215 U/L (15-37) Alanine Aminotransferase (ALT/SGPT) 126 U/L (16-63) Alkaline Phosphatase 374 U/L (46-116) Creatine Kinase 849 U/L (39-308) Troponin I Quantitative < 0.017 ng/mL (0.000-0.055) KX-Rhb-C-Type Natriuretic Peptide 351 pg/mL (0-124) Total Protein 6.0 g/dL (6.4-8.2) Albumin 2.5 g/dL (3.4-5.0) Albumin/Globulin Ratio 0.7 (1.0-1.7) Lipase 311 U/L (73-393) 138 U/L (73-393) Thyroid Stimulating Hormone (TSH) 1.435 uIU/mL (0.358-3.74) Assessment/Plan Assessment/Plan IMP IMP MET ENCEPHALOPATHY SEVERE HYPONATREMIA-SUSPICIOUS FOR SIADH VS DUE TO LIVER FAILURE ? PANCREATIC CYST VS MASS ? HX OF RIGHT RCCA LOW MAG LIVER FAILURE ?ETOH ABUSE PLAN 3% SALINE SUGGEST ONC EVAL CONSIDER GI EVAL WILL CHECK SERUM AND URINE OSM URINE LYTES PENDING TSH CHECK CORRECT MAG AMALIA ALICIA MD Oct 25, 2019 13:03
--- NOTE | 2019-10-25 13:22 | PDOC ---
[facility] [facility] PROGRESS NOTE Chief Complaint Chief Complaint Hyponatremia 114 on admit now 122 History of renal cell carcinoma Lactic acidosis 3.1 cm enlarged mediastinal lymph node concerning for a neoplastic process or metastatic lymphadenopathy. by ct Pancreatitis (Fullness of the head of the pancreas is seen. Increased density is seen within the fat surrounding the pancreas and duodenum. c/w acute pancreatitis. No pancreatic pseudocyst is seen. Suspected pancreatic phlegmon extends laterally to the right anterior to the right kidney. transaminitis) Elevated d- dimer Anion gap metabolic acidosis Small ascites History of Present Illness History of Present Illness [id number] Patient seen and examined in the ICU Today he has a lot of diarrhea I discussed the case with the nurse Chart reviewed His sodium is improving GI neurology and nephrology are following I ordered some Imodium Vitals/I&O Vitals/I&O: Vital Signs Date Time Temp Pulse Resp B/P (MAP) Pulse Ox O2 Delivery O2 Flow Rate FiO2 10/25/19 12:00 98.4 79 22 118/73 (88) 97 Room Air 98.4 I & O 10/24/19 10/24/19 10/25/19 15:00 23:00 07:00 Intake Total 3050 ml 2060 ml Output Total 401 ml 600 ml Balance 2649 ml 1460 ml Physical Exam General: Alert, Oriented X3, Cooperative, No acute distress Heart: Regular rate Abdomen: Normal bowel sounds Extremities: No clubbing Skin: No breakdown Labs Labs: Laboratory Tests Test 10/24/19 17:30 10/25/19 00:20 10/25/19 05:45 Sodium Level 118 mmol/L (136-145) 122 mmol/L (136-145) 122 mmol/L (136-145) Potassium Level 3.8 mmol/L (3.5-5.1) 3.6 mmol/L (3.5-5.1) 3.7 mmol/L (3.5-5.1) Chloride Level 87 mmol/L (98-107) 92 mmol/L (98-107) 93 mmol/L (98-107) Carbon Dioxide Level 18 mmol/L (21-32) 19 mmol/L (21-32) 18 mmol/L (21-32) Anion Gap 13 (6-14) 11 (6-14) 11 (6-14) Blood Urea Nitrogen 13 mg/dL (8-26) 11 mg/dL (8-26) 10 mg/dL (8-26) Creatinine 1.1 mg/dL (0.7-1.3) 1.0 mg/dL (0.7-1.3) 0.8 mg/dL (0.7-1.3) Estimated GFR (Cockcroft-Gault) 67.2 75.0 97.0 Glucose Level 100 mg/dL (70-99) 87 mg/dL (70-99) 81 mg/dL (70-99) Lactic Acid Level 2.3 mmol/L (0.4-2.0) 0.8 mmol/L (0.4-2.0) Calcium Level 7.3 mg/dL (8.5-10.1) 7.4 mg/dL (8.5-10.1) 7.3 mg/dL (8.5-10.1) Thyroid Stimulating Hormone (TSH) 1.435 uIU/mL (0.358-3.74) Lipase 138 U/L (73-393) Magnesium Level 2.0 mg/dL (1.8-2.4) Review of Systems Review of Systems: [place] of diarrhea complains of weakness Assessment and Plan Assessmemt and Plan See next note timed 13:25 Comment Review of Relevant I have reviewed the following items ernesto (where applicable) has been applied. Medications: Current Medications Medications (Trade) Dose Ordered Sig/Lan Route PRN Reason Start Time Stop Time Status Last Admin Dose Admin Diphtheria/ Tetanus/Acell Pertussis (ADACEL TDap SYRINGE) 0.5 ml ONCE ONCE VAX IM 10/24/19 14:00 10/24/19 14:02 DC 10/24/19 14:13 Sodium Chloride 1,000 ml @ 1,000 mls/hr 1X ONCE IV 10/24/19 14:00 10/24/19 14:59 DC 10/24/19 14:12 Sodium Chloride 1,000 ml @ 1,000 mls/hr 1X ONCE IV 10/24/19 14:15 10/24/19 15:14 DC 10/24/19 14:52 Piperacillin Sod/ Tazobactam Sod 3.375 gm/Sodium Chloride 50 ml @ 100 mls/hr 1X ONCE IV 10/24/19 14:30 10/24/19 14:59 DC 10/24/19 14:52 Vancomycin HCl 1.75 gm/Sodium Chloride 500 ml @ 250 mls/hr 1X ONCE IV 10/24/19 14:30 10/24/19 16:29 DC 10/24/19 15:18 Iohexol (Omnipaque 350 Mg/ml) 80 ml 1X ONCE IV 10/24/19 14:30 10/24/19 14:31 DC 10/24/19 15:10 Sodium Chloride 1,000 ml @ 150 mls/hr Q6H40M IV 10/24/19 14:27 10/25/19 14:26 10/25/19 11:57 Ondansetron HCl (Zofran) 4 mg 1X ONCE IVP 10/24/19 15:00 10/24/19 15:01 DC 10/24/19 15:14 Fentanyl Citrate (Fentanyl 2ml Vial) 50 mcg 1X ONCE IVP 10/24/19 15:00 10/24/19 15:02 DC 10/24/19 15:15 Enoxaparin Sodium (Lovenox 40mg Syringe) 40 mg Q24H SQ 10/25/19 09:00 10/25/19 08:57 Piperacillin Sod/ Tazobactam Sod 3.375 gm/Sodium Chloride 50 ml @ 100 mls/hr Q6HRS IV 10/24/19 18:00 10/25/19 08:23 Sodium Chloride 500 ml @ 50 mls/hr 1X ONCE IV 10/24/19 18:45 10/25/19 04:44 DC 10/24/19 19:52 Sodium Chloride 150 ml @ 50 mls/hr 1X ONCE IV 10/25/19 12:30 10/25/19 15:29 10/25/19 12:11 COLE DENNIS III DO Oct 25, 2019 13:22
--- NOTE | 2019-10-25 13:25 | PDOC ---
[facility] [facility] PROGRESS NOTE Chief Complaint Chief Complaint Hyponatremia 114 on admit now 122 History of renal cell carcinoma Lactic acidosis 3.1 cm enlarged mediastinal lymph node concerning for a neoplastic process or metastatic lymphadenopathy. by ct Pancreatitis (Fullness of the head of the pancreas is seen. Increased density is seen within the fat surrounding the pancreas and duodenum. c/w acute pancreatitis. No pancreatic pseudocyst is seen. Suspected pancreatic phlegmon extends laterally to the right anterior to the right kidney. transaminitis) Elevated d- dimer Anion gap metabolic acidosis Small ascites History of Present Illness History of Present Illness [id number] Patient seen and examined in the ICU Today he has a lot of diarrhea I discussed the case with the nurse Chart reviewed His sodium is improving GI neurology and nephrology are following I ordered some Imodium Vitals/I&O Vitals/I&O: Vital Signs Date Time Temp Pulse Resp B/P (MAP) Pulse Ox O2 Delivery O2 Flow Rate FiO2 10/25/19 12:00 98.4 79 22 118/73 (88) 97 Room Air 98.4 I & O 10/24/19 10/24/19 10/25/19 15:00 23:00 07:00 Intake Total 3050 ml 2060 ml Output Total 401 ml 600 ml Balance 2649 ml 1460 ml Physical Exam General: Alert, Oriented X3, Cooperative, No acute distress Heart: Regular rate Abdomen: Normal bowel sounds Extremities: No clubbing Skin: No breakdown Labs Labs: Laboratory Tests Test 10/24/19 17:30 10/25/19 00:20 10/25/19 05:45 Sodium Level 118 mmol/L (136-145) 122 mmol/L (136-145) 122 mmol/L (136-145) Potassium Level 3.8 mmol/L (3.5-5.1) 3.6 mmol/L (3.5-5.1) 3.7 mmol/L (3.5-5.1) Chloride Level 87 mmol/L (98-107) 92 mmol/L (98-107) 93 mmol/L (98-107) Carbon Dioxide Level 18 mmol/L (21-32) 19 mmol/L (21-32) 18 mmol/L (21-32) Anion Gap 13 (6-14) 11 (6-14) 11 (6-14) Blood Urea Nitrogen 13 mg/dL (8-26) 11 mg/dL (8-26) 10 mg/dL (8-26) Creatinine 1.1 mg/dL (0.7-1.3) 1.0 mg/dL (0.7-1.3) 0.8 mg/dL (0.7-1.3) Estimated GFR (Cockcroft-Gault) 67.2 75.0 97.0 Glucose Level 100 mg/dL (70-99) 87 mg/dL (70-99) 81 mg/dL (70-99) Lactic Acid Level 2.3 mmol/L (0.4-2.0) 0.8 mmol/L (0.4-2.0) Calcium Level 7.3 mg/dL (8.5-10.1) 7.4 mg/dL (8.5-10.1) 7.3 mg/dL (8.5-10.1) Thyroid Stimulating Hormone (TSH) 1.435 uIU/mL (0.358-3.74) Lipase 138 U/L (73-393) Magnesium Level 2.0 mg/dL (1.8-2.4) Review of Systems Review of Systems: Complains of diarrhea complains of weakness Assessment and Plan Assessmemt and Plan Problems Medical Problems: (1) Contusion of right hand Status: Acute (2) Elevated d-dimer Status: Acute (3) Elevated liver function tests Status: Acute (4) Facial contusion Status: Acute (5) History of kidney cancer Status: Acute (6) Hyponatremia Status: Acute (7) Renal insufficiency Status: Acute (8) Severe sepsis Status: Acute (9) Syncope and collapse Status: Acute (10) Traumatic rhabdomyolysis Status: Acute Hyponatremia 114 on admit now 122 History of renal cell carcinoma Lactic acidosis 3.1 cm enlarged mediastinal lymph node concerning for a neoplastic process or metastatic lymphadenopathy. by ct Pancreatitis (Fullness of the head of the pancreas is seen. Increased density is seen within the fat surrounding the pancreas and duodenum. c/w acute pancreatitis. No pancreatic pseudocyst is seen. Suspected pancreatic phlegmon extends laterally to the right anterior to the right kidney. transaminitis) Elevated d- dimer Anion gap metabolic acidosis Small ascites Plan ICU monitoring Nephrology following GI following NPO Checks Neurology following Frequent labs Blood and urine cultures Straight cath prn Acute hepatitis dx panel Emperic iv zosyn Follow lactic acid with reflex Serum and urine osmolality Home meds DVT prophylaxis Full code Appreciate subspecialist input Need [facility] Total time 33 minutes Comment Review of Relevant I have reviewed the following items ernesto (where applicable) has been applied. Medications: Current Medications Medications (Trade) Dose Ordered Sig/Lan Route PRN Reason Start Time Stop Time Status Last Admin Dose Admin Diphtheria/ Tetanus/Acell Pertussis (ADACEL TDap SYRINGE) 0.5 ml ONCE ONCE VAX IM 10/24/19 14:00 10/24/19 14:02 DC 10/24/19 14:13 Sodium Chloride 1,000 ml @ 1,000 mls/hr 1X ONCE IV 10/24/19 14:00 10/24/19 14:59 DC 10/24/19 14:12 Sodium Chloride 1,000 ml @ 1,000 mls/hr 1X ONCE IV 10/24/19 14:15 10/24/19 15:14 DC 10/24/19 14:52 Piperacillin Sod/ Tazobactam Sod 3.375 gm/Sodium Chloride 50 ml @ 100 mls/hr 1X ONCE IV 10/24/19 14:30 10/24/19 14:59 DC 10/24/19 14:52 Vancomycin HCl 1.75 gm/Sodium Chloride 500 ml @ 250 mls/hr 1X ONCE IV 10/24/19 14:30 10/24/19 16:29 DC 10/24/19 15:18 Iohexol (Omnipaque 350 Mg/ml) 80 ml 1X ONCE IV 10/24/19 14:30 10/24/19 14:31 DC 10/24/19 15:10 Sodium Chloride 1,000 ml @ 150 mls/hr Q6H40M IV 10/24/19 14:27 10/25/19 14:26 10/25/19 11:57 Ondansetron HCl (Zofran) 4 mg 1X ONCE IVP 10/24/19 15:00 10/24/19 15:01 DC 10/24/19 15:14 Fentanyl Citrate (Fentanyl 2ml Vial) 50 mcg 1X ONCE IVP 10/24/19 15:00 10/24/19 15:02 DC 10/24/19 15:15 Enoxaparin Sodium (Lovenox 40mg Syringe) 40 mg Q24H SQ 10/25/19 09:00 10/25/19 08:57 Piperacillin Sod/ Tazobactam Sod 3.375 gm/Sodium Chloride 50 ml @ 100 mls/hr Q6HRS IV 10/24/19 18:00 10/25/19 08:23 Sodium Chloride 500 ml @ 50 mls/hr 1X ONCE IV 10/24/19 18:45 10/25/19 04:44 DC 10/24/19 19:52 Sodium Chloride 150 ml @ 50 mls/hr 1X ONCE IV 10/25/19 12:30 10/25/19 15:29 10/25/19 12:11 COLE DENNIS III DO Oct 25, 2019 13:25
[2019-10-25] MEDS ORDERED: MAGNESIUM SULFATE 2GM 50 ML IV ONE (13:30)
[2019-10-25] MEDS: LOPERAMIDE 2 MG/15 ML ORAL SUSP. PO PRN ×3 (13:37→20:54)
[2019-10-25 13:45] LABS: CALCIUM 7.8 mg/dL (8.5-10.1); CREATININE 0.9 mg/dL (0.7-1.3); GFR 84.7; POTASSIUM 3.2 mmol/L (3.5-5.1)
--- NOTE | 2019-10-25 13:57 | PDOC2 ---
CONSULT Date of Consult Date of Consult DATE: 10/25/19 TIME: 13:42 Reason for Consult Reason for Consult: possible pancreatitis, abnormal CT, abnormal LFTs History of Present Illness Reason for Visit: This is a 64-year-old gentleman who presents with a history of passing out at work in the parking lot. He states that he did not lose consciousness but felt weak and could not move after falling to the ground. There are some abrasions on his head but no other direct injuries are reported. He relates that he was feeling well in the days prior to this, with a good appetite and no nausea, vomiting diarrhea or fever reported. He does relate occasional diarrhea in the past but not significant and denies any abdominal pain or bleeding symptoms. However on admission his sodium was dramatically decreased at 118 and he had elevated liver function studies and an abnormal CT revealing inflammation in the pancreas and a an enlarged mediastinal lymph node. He does give a history of a renal mass with surgery in the past suggestive of renal cell carcinoma and is followed [facility] for this. He had a recent biopsy of his liver because of a "spot" but the biopsy was reported to him as benign. He does not recall a history of abnormal liver tests and denies any prior history of pancreatitis or biliary tract disease but does admit to regular alcohol use. Need the records from to confirm whether this enlarged lymph node in his mediastinum is a known quantity and may reflect metastatic disease. Also, those previous imaging studies should be able to tell us whether these findings regarding his pancreas are new or old. His details on the history are limited however. Past Medical History Cardiovascular: CAD, Hyperlipidemia Heme/Onc: Cancer (? RENAL CELLL CA FOLLOWED BY [facility]) Musculoskeletal: Osteoarthritis Family History Family History: High Cholestrol, Hypertension Social History No ALCOHOL: other (6 beers a week) Drugs: None Current Problem List Problem List Problems Medical Problems: (1) Contusion of right hand Status: Acute (2) Elevated d-dimer Status: Acute (3) Elevated liver function tests Status: Acute (4) Facial contusion Status: Acute (5) History of kidney cancer Status: Acute (6) Hyponatremia Status: Acute (7) Renal insufficiency Status: Acute (8) Severe sepsis Status: Acute (9) Syncope and collapse Status: Acute (10) Traumatic rhabdomyolysis Status: Acute Current Medications Current Medications Current Medications Diphtheria/ Tetanus/Acell Pertussis (ADACEL TDap SYRINGE) 0.5 ml ONCE ONCE VAX IM Last administered on 10/24/19at 14:13; Start 10/24/19 at 14:00; Stop 10/24/19 at 14:02; Status DC Sodium Chloride 1,000 ml @ 1,000 mls/hr 1X ONCE IV Last administered on 10/24/19at 14:12; Start 10/24/19 at 14:00; Stop 10/24/19 at 14:59; Status DC Sodium Chloride 1,000 ml @ 1,000 mls/hr 1X ONCE IV Last administered on 10/24/19at 14:52; Start 10/24/19 at 14:15; Stop 10/24/19 at 15:14; Status DC Piperacillin Sod/ Tazobactam Sod 3.375 gm/Sodium Chloride 50 ml @ 100 mls/hr 1X ONCE IV Last administered on 10/24/19at 14:52; Start 10/24/19 at 14:30; Stop 10/24/19 at 14:59; Status DC Vancomycin HCl 250 ml @ 250 mls/hr 1X ONCE IV ; Start 10/24/19 at 14:30; Stop 10/24/19 at 15:29; Status UNV Vancomycin HCl 1.75 gm/Sodium Chloride 500 ml @ 250 mls/hr 1X ONCE IV Last administered on 10/24/19at 15:18; Start 10/24/19 at 14:30; Stop 10/24/19 at 16:29; Status DC Iohexol (Omnipaque 350 Mg/ml) 80 ml 1X ONCE IV Last administered on 10/24/19at 15:10; Start 10/24/19 at 14:30; Stop 10/24/19 at 14:31; Status DC Info (CONTRAST GIVEN -- Rx MONITORING) 1 each PRN DAILY PRN MC SEE COMMENTS; Start 10/24/19 at 14:30; Stop 10/26/19 at 14:29 Sodium Chloride 1,000 ml @ 150 mls/hr Q6H40M IV Last administered on 10/25/19at 11:57; Start 10/24/19 at 14:27; Stop 10/25/19 at 14:26 Ondansetron HCl (Zofran) 4 mg 1X ONCE IVP Last administered on 10/24/19at 15:14; Start 10/24/19 at 15:00; Stop 10/24/19 at 15:01; Status DC Fentanyl Citrate (Fentanyl 2ml Vial) 50 mcg 1X ONCE IVP Last administered on 10/24/19at 15:15; Start 10/24/19 at 15:00; Stop 10/24/19 at 15:02; Status DC Sodium Chloride (Normal Saline Flush) 3 ml QSHIFT PRN IV AFTER MEDS AND BLOOD DRAWS; Start 10/24/19 at 17:00 Ondansetron HCl (Zofran) 4 mg PRN Q4HRS PRN IV NAUSEA/VOMITING; Start 10/24/19 at 17:00 Acetaminophen (Tylenol) 650 mg PRN Q4HRS PRN PO TEMP OVER 100.4F OR MILD PAIN; Start 10/24/19 at 17:00 Sodium Monofluorophosphate (Fleet Adult) 133 ml PRN DAILY PRN [place] CONSTIPATION; Start 10/24/19 at 17:00 Docusate Sodium (Colace) 100 mg PRN BID PRN PO HARD STOOLS; Start 10/24/19 at 17:00 Albuterol Sulfate (Ventolin Neb Soln) 2.5 mg PRN Q4HRS PRN NEB SHORTNESS OF BREATH; Start 10/24/19 at 17:00 Guaifenesin (Robitussin) 200 mg PRN Q4HRS PRN PO COUGH; Start 10/24/19 at 17:00 Enoxaparin Sodium (Lovenox 40mg Syringe) 40 mg Q24H SQ Last administered on 10/25/19at 08:57; Start 10/25/19 at 09:00 Piperacillin Sod/ Tazobactam Sod 3.375 gm/Sodium Chloride 50 ml @ 100 mls/hr Q6HRS IV Last administered on 10/25/19at 08:23; Start 10/24/19 at 18:00 Sodium Chloride 500 ml @ 50 mls/hr 1X ONCE IV Last administered on 10/24/19at 19:52; Start 10/24/19 at 18:45; Stop 10/25/19 at 04:44; Status DC Sodium Chloride 150 ml @ 50 mls/hr 1X ONCE IV Last administered on 10/25/19at 12:11; Start 10/25/19 at 12:30; Stop 10/25/19 at 15:29 Loperamide HCl (Imodium) 2 mg PRN Q15MIN PRN PO DIARRHEA; Start 10/25/19 at 12:15 Magnesium Sulfate 50 ml @ 25 mls/hr 1X ONCE IV Last administered on 10/25/19at 13:37; Start 10/25/19 at 13:30; Stop 10/25/19 at 15:29 Loperamide HCl (Immodium Oral Susp) 2 mg PRN Q30MIN PRN PO DIARRHEA Last administered on 10/25/19at 13:37; Start 10/25/19 at 13:30 Active Scripts Active Reported Irbesartan 300 Mg Tablet 300 Mg PO DAILY Toprol Xl (Metoprolol Succinate) 25 Mg Tab.er.24h 50 Mg PO DAILY Atorvastatin Calcium 40 Mg Tablet 1 Tab PO DAILY Amlodipine Besylate 10 Mg Tablet 10 Mg PO DAILY Vascepa (Icosapent Ethyl) 1 Gm Capsule 2 Cap PO BID 30 Days Levothyroxine Sodium 75 Mcg Tablet 1 Tab PO DAILY Allergies Allergies: Coded Allergies: No Known Drug Allergies (Unverified , 10/24/19) Physical Exam General: Alert, Oriented X3 HEENT: PERRLA, Other (abrasion on forehead) Lungs: Clear to auscultation Heart: Regular rate, Normal S1, Normal S2 Abdomen: Normal bowel sounds, Soft, No tenderness, No hepatosplenomegaly, No masses Skin: No rashes Psych/Mental Status: Mental status NL Vitals VITALS Vital Signs Date Time Temp Pulse Resp B/P (MAP) Pulse Ox O2 Delivery O2 Flow Rate FiO2 10/25/19 12:00 98.4 79 22 118/73 (88) 97 Room Air 98.4 Labs Labs Laboratory Tests Test 10/24/19 12:05 10/24/19 13:05 10/24/19 17:30 10/25/19 00:20 D-Dimer (Ellen) 2.23 ug/mlFEU (0.00-0.50) White Blood Count 7.3 x10^3/uL (4.0-11.0) Red Blood Count 3.98 x10^6/uL (4.30-5.70) Hemoglobin 13.1 g/dL (13.0-17.5) Hematocrit 37.7 % (39.0-53.0) Mean Corpuscular Volume 95 fL (79-100) Mean Corpuscular Hemoglobin 33 pg (25-35) Mean Corpuscular Hemoglobin Concent 35 g/dL (31-37) Red Cell Distribution Width 13.9 % (11.5-14.5) Platelet Count 184 x10^3/uL (140-400) Neutrophils (%) (Auto) 80 % (31-73) Lymphocytes (%) (Auto) 12 % (24-48) Monocytes (%) (Auto) 7 % (0-9) Eosinophils (%) (Auto) 0 % (0-3) Basophils (%) (Auto) 1 % (0-3) Neutrophils # (Auto) 5.8 x10^3/uL (1.8-7.7) Lymphocytes # (Auto) 0.9 x10^3/uL (1.0-4.8) Monocytes # (Auto) 0.5 x10^3/uL (0.0-1.1) Eosinophils # (Auto) 0.0 x10^3/uL (0.0-0.7) Basophils # (Auto) 0.1 x10^3/uL (0.0-0.2) Prothrombin Time 14.7 SEC (11.7-14.0) Prothromb Time International Ratio 1.2 (0.8-1.1) Sodium Level 114 mmol/L (136-145) 118 mmol/L (136-145) 122 mmol/L (136-145) Potassium Level 3.6 mmol/L (3.5-5.1) 3.8 mmol/L (3.5-5.1) 3.6 mmol/L (3.5-5.1) Chloride Level 81 mmol/L (98-107) 87 mmol/L (98-107) 92 mmol/L (98-107) Carbon Dioxide Level 15 mmol/L (21-32) 18 mmol/L (21-32) 19 mmol/L (21-32) Anion Gap 18 (6-14) 13 (6-14) 11 (6-14) Blood Urea Nitrogen 12 mg/dL (8-26) 13 mg/dL (8-26) 11 mg/dL (8-26) Creatinine 1.4 mg/dL (0.7-1.3) 1.1 mg/dL (0.7-1.3) 1.0 mg/dL (0.7-1.3) Estimated GFR (Cockcroft-Gault) 50.9 67.2 75.0 BUN/Creatinine Ratio 9 (6-20) Glucose Level 171 mg/dL (70-99) 100 mg/dL (70-99) 87 mg/dL (70-99) Lactic Acid Level 7.4 mmol/L (0.4-2.0) 2.3 mmol/L (0.4-2.0) Calcium Level 7.7 mg/dL (8.5-10.1) 7.3 mg/dL (8.5-10.1) 7.4 mg/dL (8.5-10.1) Phosphorus Level 3.4 mg/dL (2.6-4.7) Magnesium Level 1.7 mg/dL (1.8-2.4) Total Bilirubin 3.8 mg/dL (0.2-1.0) Aspartate Amino Transf (AST/SGOT) 215 U/L (15-37) Alanine Aminotransferase (ALT/SGPT) 126 U/L (16-63) Alkaline Phosphatase 374 U/L (46-116) Creatine Kinase 849 U/L (39-308) Troponin I Quantitative < 0.017 ng/mL (0.000-0.055) TN-Qie-N-Type Natriuretic Peptide 351 pg/mL (0-124) Total Protein 6.0 g/dL (6.4-8.2) Albumin 2.5 g/dL (3.4-5.0) Albumin/Globulin Ratio 0.7 (1.0-1.7) Lipase 311 U/L (73-393) 138 U/L (73-393) Thyroid Stimulating Hormone (TSH) 1.435 uIU/mL (0.358-3.74) Test 10/25/19 05:45 Sodium Level 122 mmol/L (136-145) Potassium Level 3.7 mmol/L (3.5-5.1) Chloride Level 93 mmol/L (98-107) Carbon Dioxide Level 18 mmol/L (21-32) Anion Gap 11 (6-14) Blood Urea Nitrogen 10 mg/dL (8-26) Creatinine 0.8 mg/dL (0.7-1.3) Estimated GFR (Cockcroft-Gault) 97.0 Glucose Level 81 mg/dL (70-99) Lactic Acid Level 0.8 mmol/L (0.4-2.0) Calcium Level 7.3 mg/dL (8.5-10.1) Magnesium Level 2.0 mg/dL (1.8-2.4) Laboratory Tests Test 10/24/19 17:30 10/25/19 00:20 10/25/19 05:45 Sodium Level 118 mmol/L (136-145) 122 mmol/L (136-145) 122 mmol/L (136-145) Potassium Level 3.8 mmol/L (3.5-5.1) 3.6 mmol/L (3.5-5.1) 3.7 mmol/L (3.5-5.1) Chloride Level 87 mmol/L (98-107) 92 mmol/L (98-107) 93 mmol/L (98-107) Carbon Dioxide Level 18 mmol/L (21-32) 19 mmol/L (21-32) 18 mmol/L (21-32) Anion Gap 13 (6-14) 11 (6-14) 11 (6-14) Blood Urea Nitrogen 13 mg/dL (8-26) 11 mg/dL (8-26) 10 mg/dL (8-26) Creatinine 1.1 mg/dL (0.7-1.3) 1.0 mg/dL (0.7-1.3) 0.8 mg/dL (0.7-1.3) Estimated GFR (Cockcroft-Gault) 67.2 75.0 97.0 Glucose Level 100 mg/dL (70-99) 87 mg/dL (70-99) 81 mg/dL (70-99) Lactic Acid Level 2.3 mmol/L (0.4-2.0) 0.8 mmol/L (0.4-2.0) Calcium Level 7.3 mg/dL (8.5-10.1) 7.4 mg/dL (8.5-10.1) 7.3 mg/dL (8.5-10.1) Thyroid Stimulating Hormone (TSH) 1.435 uIU/mL (0.358-3.74) Lipase 138 U/L (73-393) Magnesium Level 2.0 mg/dL (1.8-2.4) Images Images CTA chest, abdomen and pelvis. No evidence for PE. 3.1 cm mediastinal lymph node. No other masses in the lungs. Scarring in the right kidney consistent with prior surgery. Inflammation in the head of the pancreas heading down into the area of the right kidney. Suggestive of acute pancreatitis. No other lesions appreciated Assessment/Plan Assessment/Plan Pancreatitis per CT scan results. However he did not have abdominal pain, nausea or vomiting or even elevated lipase. He does admit to alcohol intake on a regular basis which could put him at risk. The gallbladder is contracted on the CT so small stones cannot be totally excluded. He has a history of renal cell cancer in the right kidney but I don't believe this diagnosis or any recent treatment or intervention would put him at risk for pancreatitis, although the records are not available. Abnormal liver function studies. Elevated transaminases and alkaline phosphatase with normal bilirubin. No evidence for dilated biliary system on CT and the gallbladder is contracted. These findings could very well represent alcohol- related hepatitis or chronic liver disease. The supposition of metastatic disease to the liver should also be addressed but his recent history of a biopsy of his liver which was benign by his history seems to point away from that likelihood. History of renal cell cancer. Enlarged is mediastinal lymph node. Very suspicious for metastatic disease. He does have a history of smoking but quit 19 years ago at the time of an [place]. He relates regular checkups including chest x-rays which have not revealed any new lesions. Syncope: Clinically he says he didn't lose consciousness but did get weak and fell to the ground. Likely related to hyponatremia and possibly his underlying pancreatitis although it's unusual without vomiting or pain to develop weakness or syncope from pancreatitis alone. Low Sodium. No clear history. May be related to alcohol use and other unexplained triggers but denies excessive water intake. Nephrology workup ongoing Plan: Nothing by mouth today but since he is feeling well we may try clear liquid diet later today and monitor Repeat liver function studies and lipase Obtain records from [facility] to compare, particularly imaging and history of whether he has metastatic disease or not. DES FRANCO MD Oct 25, 2019 13:56
[2019-10-25] MEDS: LEVOTHYROXINE 75 MCG TABLET PO SCH (17:00)
--- NOTE | 2019-10-25 18:52 | PDOC2 ---
CONSULT Date of Consult Date of Consult DATE: 10/25/19 TIME: 18:50 Identification/Chief Complaint Chief Complaint weakness History of Present Illness Reason for Visit: This patient is 64-year-old man with past medical history of multiple medical problems history of hypertension coronary artery disease, right kidney cancer, history of alcohol abuse patient presented with episode of lightheadedness. Patient denied any difficulty speaking tingling numbness on the face. Patient denies any complaint of chest pain shortness of breath dizziness difficulty speaking focal extremity weakness. Patient had improvement in symptoms. Patient was noted to have hyponatremia Past Medical History Cardiovascular: CAD, Hyperlipidemia Heme/Onc: Cancer (? RENAL CELLL CA FOLLOWED BY [facility]) Musculoskeletal: Osteoarthritis Family History Family History: High Cholestrol, Hypertension Social History No ALCOHOL: other (6 beers a week) Drugs: None Current Problem List Problem List Problems Medical Problems: (1) Contusion of right hand Status: Acute (2) Elevated d-dimer Status: Acute (3) Elevated liver function tests Status: Acute (4) Facial contusion Status: Acute (5) History of kidney cancer Status: Acute (6) Hyponatremia Status: Acute (7) Renal insufficiency Status: Acute (8) Severe sepsis Status: Acute (9) Syncope and collapse Status: Acute (10) Traumatic rhabdomyolysis Status: Acute Current Medications Current Medications Current Medications Diphtheria/ Tetanus/Acell Pertussis (ADACEL TDap SYRINGE) 0.5 ml ONCE ONCE VAX IM Last administered on 10/24/19at 14:13; Start 10/24/19 at 14:00; Stop 10/24/19 at 14:02; Status DC Sodium Chloride 1,000 ml @ 1,000 mls/hr 1X ONCE IV Last administered on 10/24/19at 14:12; Start 10/24/19 at 14:00; Stop 10/24/19 at 14:59; Status DC Sodium Chloride 1,000 ml @ 1,000 mls/hr 1X ONCE IV Last administered on 10/24/19at 14:52; Start 10/24/19 at 14:15; Stop 10/24/19 at 15:14; Status DC Piperacillin Sod/ Tazobactam Sod 3.375 gm/Sodium Chloride 50 ml @ 100 mls/hr 1X ONCE IV Last administered on 10/24/19at 14:52; Start 10/24/19 at 14:30; Stop 10/24/19 at 14:59; Status DC Vancomycin HCl 250 ml @ 250 mls/hr 1X ONCE IV ; Start 10/24/19 at 14:30; Stop 10/24/19 at 15:29; Status UNV Vancomycin HCl 1.75 gm/Sodium Chloride 500 ml @ 250 mls/hr 1X ONCE IV Last administered on 10/24/19at 15:18; Start 10/24/19 at 14:30; Stop 10/24/19 at 16:29; Status DC Iohexol (Omnipaque 350 Mg/ml) 80 ml 1X ONCE IV Last administered on 10/24/19at 15:10; Start 10/24/19 at 14:30; Stop 10/24/19 at 14:31; Status DC Info (CONTRAST GIVEN -- Rx MONITORING) 1 each PRN DAILY PRN MC SEE COMMENTS; Start 10/24/19 at 14:30; Stop 10/26/19 at 14:29 Sodium Chloride 1,000 ml @ 150 mls/hr Q6H40M IV Last administered on 10/25/19at 11:57; Start 10/24/19 at 14:27; Stop 10/25/19 at 14:26; Status DC Ondansetron HCl (Zofran) 4 mg 1X ONCE IVP Last administered on 10/24/19at 15:14; Start 10/24/19 at 15:00; Stop 10/24/19 at 15:01; Status DC Fentanyl Citrate (Fentanyl 2ml Vial) 50 mcg 1X ONCE IVP Last administered on 10/24/19at 15:15; Start 10/24/19 at 15:00; Stop 10/24/19 at 15:02; Status DC Sodium Chloride (Normal Saline Flush) 3 ml QSHIFT PRN IV AFTER MEDS AND BLOOD DRAWS; Start 10/24/19 at 17:00 Ondansetron HCl (Zofran) 4 mg PRN Q4HRS PRN IV NAUSEA/VOMITING; Start 10/24/19 at 17:00 Acetaminophen (Tylenol) 650 mg PRN Q4HRS PRN PO TEMP OVER 100.4F OR MILD PAIN; Start 10/24/19 at 17:00 Sodium Monofluorophosphate (Fleet Adult) 133 ml PRN DAILY PRN [place] CONSTIPATION; Start 10/24/19 at 17:00 Docusate Sodium (Colace) 100 mg PRN BID PRN PO HARD STOOLS; Start 10/24/19 at 17:00 Albuterol Sulfate (Ventolin Neb Soln) 2.5 mg PRN Q4HRS PRN NEB SHORTNESS OF BREATH; Start 10/24/19 at 17:00 Guaifenesin (Robitussin) 200 mg PRN Q4HRS PRN PO COUGH; Start 10/24/19 at 17:00 Enoxaparin Sodium (Lovenox 40mg Syringe) 40 mg Q24H SQ Last administered on 10/25/19at 08:57; Start 10/25/19 at 09:00 Piperacillin Sod/ Tazobactam Sod 3.375 gm/Sodium Chloride 50 ml @ 100 mls/hr Q6HRS IV Last administered on 10/25/19at 17:04; Start 10/24/19 at 18:00 Sodium Chloride 500 ml @ 50 mls/hr 1X ONCE IV Last administered on 10/24/19at 19:52; Start 10/24/19 at 18:45; Stop 10/25/19 at 04:44; Status DC Sodium Chloride 150 ml @ 50 mls/hr 1X ONCE IV Last administered on 10/25/19at 12:11; Start 10/25/19 at 12:30; Stop 10/25/19 at 15:29; Status DC Loperamide HCl (Imodium) 2 mg PRN Q15MIN PRN PO DIARRHEA; Start 10/25/19 at 12:15 Magnesium Sulfate 50 ml @ 25 mls/hr 1X ONCE IV Last administered on 10/25/19at 13:37; Start 10/25/19 at 13:30; Stop 10/25/19 at 15:29; Status DC Loperamide HCl (Immodium Oral Susp) 2 mg PRN Q30MIN PRN PO DIARRHEA Last administered on 10/25/19at 15:03; Start 10/25/19 at 13:30 Levothyroxine Sodium (Synthroid) 75 mcg DAILY06 PO Last administered on 10/25/19at 17:00; Start 10/25/19 at 16:00 Active Scripts Active Reported Irbesartan 300 Mg Tablet 300 Mg PO DAILY Toprol Xl (Metoprolol Succinate) 25 Mg Tab.er.24h 50 Mg PO DAILY Atorvastatin Calcium 40 Mg Tablet 1 Tab PO DAILY Amlodipine Besylate 10 Mg Tablet 10 Mg PO DAILY Vascepa (Icosapent Ethyl) 1 Gm Capsule 2 Cap PO BID 30 Days Levothyroxine Sodium 75 Mcg Tablet 1 Tab PO DAILY Allergies Allergies: Coded Allergies: No Known Drug Allergies (Unverified , 10/24/19) Physical Exam Physical Exam General no acute distress. HEENT: Normocephalic and atraumatic. NECK: Supple without bruit Respiratory: Clear to auscultation bilaterally Heart: Regular rate and rhythm, S1S2 normal NEUROLOGIC: Mental status Alert oriented. Cranial nerve equally reactive pupils, and intact extraocular movements. No facial asymmetry. Palate elevates and tongue protrudes in midline. Reflexes are 1-2 with flexor plantar responses. Coordination no dysmetria Strength able to move all exts equally. Sensory exam is intact for light touch and pinprick. Gait in bed. A 10-point review of systems was obtained. Other than the history of present illness the remainder of the review of systems is negative. Vitals VITALS Vital Signs Date Time Temp Pulse Resp B/P (MAP) Pulse Ox O2 Delivery O2 Flow Rate FiO2 10/25/19 18:00 80 22 122/74 (90) Room Air 10/25/19 16:00 98.4 95 98.4 Labs Labs Laboratory Tests Test 10/24/19 12:05 10/24/19 13:05 10/24/19 17:30 10/25/19 00:20 D-Dimer (Ellen) 2.23 ug/mlFEU (0.00-0.50) White Blood Count 7.3 x10^3/uL (4.0-11.0) Red Blood Count 3.98 x10^6/uL (4.30-5.70) Hemoglobin 13.1 g/dL (13.0-17.5) Hematocrit 37.7 % (39.0-53.0) Mean Corpuscular Volume 95 fL (79-100) Mean Corpuscular Hemoglobin 33 pg (25-35) Mean Corpuscular Hemoglobin Concent 35 g/dL (31-37) Red Cell Distribution Width 13.9 % (11.5-14.5) Platelet Count 184 x10^3/uL (140-400) Neutrophils (%) (Auto) 80 % (31-73) Lymphocytes (%) (Auto) 12 % (24-48) Monocytes (%) (Auto) 7 % (0-9) Eosinophils (%) (Auto) 0 % (0-3) Basophils (%) (Auto) 1 % (0-3) Neutrophils # (Auto) 5.8 x10^3/uL (1.8-7.7) Lymphocytes # (Auto) 0.9 x10^3/uL (1.0-4.8) Monocytes # (Auto) 0.5 x10^3/uL (0.0-1.1) Eosinophils # (Auto) 0.0 x10^3/uL (0.0-0.7) Basophils # (Auto) 0.1 x10^3/uL (0.0-0.2) Prothrombin Time 14.7 SEC (11.7-14.0) Prothromb Time International Ratio 1.2 (0.8-1.1) Sodium Level 114 mmol/L (136-145) 118 mmol/L (136-145) 122 mmol/L (136-145) Potassium Level 3.6 mmol/L (3.5-5.1) 3.8 mmol/L (3.5-5.1) 3.6 mmol/L (3.5-5.1) Chloride Level 81 mmol/L (98-107) 87 mmol/L (98-107) 92 mmol/L (98-107) Carbon Dioxide Level 15 mmol/L (21-32) 18 mmol/L (21-32) 19 mmol/L (21-32) Anion Gap 18 (6-14) 13 (6-14) 11 (6-14) Blood Urea Nitrogen 12 mg/dL (8-26) 13 mg/dL (8-26) 11 mg/dL (8-26) Creatinine 1.4 mg/dL (0.7-1.3) 1.1 mg/dL (0.7-1.3) 1.0 mg/dL (0.7-1.3) Estimated GFR (Cockcroft-Gault) 50.9 67.2 75.0 BUN/Creatinine Ratio 9 (6-20) Glucose Level 171 mg/dL (70-99) 100 mg/dL (70-99) 87 mg/dL (70-99) Lactic Acid Level 7.4 mmol/L (0.4-2.0) 2.3 mmol/L (0.4-2.0) Calcium Level 7.7 mg/dL (8.5-10.1) 7.3 mg/dL (8.5-10.1) 7.4 mg/dL (8.5-10.1) Phosphorus Level 3.4 mg/dL (2.6-4.7) Magnesium Level 1.7 mg/dL (1.8-2.4) Total Bilirubin 3.8 mg/dL (0.2-1.0) Aspartate Amino Transf (AST/SGOT) 215 U/L (15-37) Alanine Aminotransferase (ALT/SGPT) 126 U/L (16-63) Alkaline Phosphatase 374 U/L (46-116) Creatine Kinase 849 U/L (39-308) Troponin I Quantitative < 0.017 ng/mL (0.000-0.055) SL-Psz-Y-Type Natriuretic Peptide 351 pg/mL (0-124) Total Protein 6.0 g/dL (6.4-8.2) Albumin 2.5 g/dL (3.4-5.0) Albumin/Globulin Ratio 0.7 (1.0-1.7) Lipase 311 U/L (73-393) 138 U/L (73-393) Thyroid Stimulating Hormone (TSH) 1.435 uIU/mL (0.358-3.74) Test 10/25/19 05:45 10/25/19 12:00 Sodium Level 122 mmol/L (136-145) 124 mmol/L (136-145) Potassium Level 3.7 mmol/L (3.5-5.1) 3.2 mmol/L (3.5-5.1) Chloride Level 93 mmol/L (98-107) 94 mmol/L (98-107) Carbon Dioxide Level 18 mmol/L (21-32) 20 mmol/L (21-32) Anion Gap 11 (6-14) 10 (6-14) Blood Urea Nitrogen 10 mg/dL (8-26) 9 mg/dL (8-26) Creatinine 0.8 mg/dL (0.7-1.3) 0.9 mg/dL (0.7-1.3) Estimated GFR (Cockcroft-Gault) 97.0 84.7 Glucose Level 81 mg/dL (70-99) 85 mg/dL (70-99) Lactic Acid Level 0.8 mmol/L (0.4-2.0) Calcium Level 7.3 mg/dL (8.5-10.1) 7.8 mg/dL (8.5-10.1) Magnesium Level 2.0 mg/dL (1.8-2.4) Laboratory Tests Test 10/25/19 00:20 10/25/19 05:45 10/25/19 12:00 Sodium Level 122 mmol/L (136-145) 122 mmol/L (136-145) 124 mmol/L (136-145) Potassium Level 3.6 mmol/L (3.5-5.1) 3.7 mmol/L (3.5-5.1) 3.2 mmol/L (3.5-5.1) Chloride Level 92 mmol/L (98-107) 93 mmol/L (98-107) 94 mmol/L (98-107) Carbon Dioxide Level 19 mmol/L (21-32) 18 mmol/L (21-32) 20 mmol/L (21-32) Anion Gap 11 (6-14) 11 (6-14) 10 (6-14) Blood Urea Nitrogen 11 mg/dL (8-26) 10 mg/dL (8-26) 9 mg/dL (8-26) Creatinine 1.0 mg/dL (0.7-1.3) 0.8 mg/dL (0.7-1.3) 0.9 mg/dL (0.7-1.3) Estimated GFR (Cockcroft-Gault) 75.0 97.0 84.7 Glucose Level 87 mg/dL (70-99) 81 mg/dL (70-99) 85 mg/dL (70-99) Calcium Level 7.4 mg/dL (8.5-10.1) 7.3 mg/dL (8.5-10.1) 7.8 mg/dL (8.5-10.1) Lipase 138 U/L (73-393) Lactic Acid Level 0.8 mmol/L (0.4-2.0) Magnesium Level 2.0 mg/dL (1.8-2.4) Assessment/Plan Assessment/Plan This patient is 64-year-old man with past medical history of multiple medical problems history of hypertension coronary artery disease, right kidney cancer, history of alcohol abuse patient presented with episode of lightheadedness. Patient denied any difficulty speaking tingling numbness on the face. Patient denies any complaint of chest pain shortness of breath dizziness difficulty speaking focal extremity weakness. Patient had improvement in symptoms. Patient was noted to have hyponatremia 64-year-old man with past medical history of multiple medical problems history of hypertension coronary artery disease, right kidney cancer, history of alcohol abuse patient presented with episode of lightheadedness metabolic encephalopathy, severe hyponatremia suspicion for SIADH, question of pancreatic cyst, obtain previous records, alcohol abuse, patient had CT scan done brain did not show any evidence of acute intracranial etiology no evidence of acute hemorrhage or mass changes noted for chronic small vessel ischemic disease will hold off on further testing, images brain. Check for orthostatic hypotension check carotid Doppler, hyponatremia continue treat and monitor renal recommendations noted continue medical management plan discussed with patient at length. LEYLA JUNG MD Oct 25, 2019 18:52
[2019-10-26] VITALS (16 sets, daily range): BP systolic 112–142; BP diastolic 70–82
[2019-10-26] MEDS: PIPERACILLIN/TAZOBACTAM 3.375 GM in IV NORMAL SALINE 50ML 50 ML IV SCH ×5 (00:17→23:45)
[2019-10-26] MEDS: IV NORMAL SALINE 1000ML BAG 1,000 ML IV SCH ×4 (04:18→21:35)
[2019-10-26 05:48] LABS: ALBUMIN 2.1 g/dL (3.4-5.0); CALCIUM 7.7 mg/dL (8.5-10.1); CREATININE 0.9 mg/dL (0.7-1.3); DIRECT BILIRUBIN 2.7 mg/dL (0.0-0.2); GFR 84.7; MAGNESIUM 2.3 mg/dL (1.8-2.4); POTASSIUM 3.3 mmol/L (3.5-5.1); TOTAL BILIRUBIN 3.5 mg/dL (0.2-1.0); TOTAL PROTEIN 5.6 g/dL (6.4-8.2)
[2019-10-26] MEDS: LEVOTHYROXINE 75 MCG TABLET PO SCH (06:08)
--- NOTE | 2019-10-26 08:27 | PDOC ---
PROGRESS NOTES Chief Complaint Chief Complaint Hyponatremia 114 on admit now 127 History of right renal mass Lactic acidosis 3.1 cm enlarged mediastinal lymph node concerning for a neoplastic process or metastatic lymphadenopathy. by ct Pancreatitis - alcohol induced transaminitis Elevated d- dimer Anion gap metabolic acidosis Small ascites Severe protein calorie malnutrition Hypokalemia History of Present Illness History of Present Illness Mr Anderson is a 64 year old male with history of hypertension, coronary artery disease, right kidney mass, heavy ETOH use who presents via EMS with complaining of syncope at work. Found with Na 114, bilirubin 3.8. Found on CT abdomen/pelvis with increased lucency of pancreatic head with concern for pancreatitis and 3.1 cm enlarged mediastinal lymph node concerning for a neoplastic process or metastatic lymphadenopathy. Seen by GI neurology and nephrology 10/24: Diarrhea noted Na 127 today. K 3.3. Bilirubin 2.7, improved.No CP. Some nausea. Still with loose stools. Counseled on ETOH cessation, notes his last drink was saturday and he has 2-6 drinks per day. Vitals Vitals Vital Signs Date Time Temp Pulse Resp B/P (MAP) Pulse Ox O2 Delivery O2 Flow Rate FiO2 10/26/19 06:00 87 20 132/76 (94) 98 Room Air 10/26/19 04:00 98.1 98.1 Physical Exam General: Alert, Oriented X3 Heart: Regular rate, Normal S1, Normal S2 Abdomen: Normal bowel sounds, Soft, No tenderness, No hepatosplenomegaly, No masses Extremities: No clubbing Skin: No rashes Labs LABS Laboratory Tests Test 10/25/19 12:00 10/26/19 04:50 Sodium Level 124 mmol/L (136-145) 127 mmol/L (136-145) Potassium Level 3.2 mmol/L (3.5-5.1) 3.3 mmol/L (3.5-5.1) Chloride Level 94 mmol/L (98-107) 98 mmol/L (98-107) Carbon Dioxide Level 20 mmol/L (21-32) 19 mmol/L (21-32) Anion Gap 10 (6-14) 10 (6-14) Blood Urea Nitrogen 9 mg/dL (8-26) 8 mg/dL (8-26) Creatinine 0.9 mg/dL (0.7-1.3) 0.9 mg/dL (0.7-1.3) Estimated GFR (Cockcroft-Gault) 84.7 84.7 Glucose Level 85 mg/dL (70-99) 89 mg/dL (70-99) Calcium Level 7.8 mg/dL (8.5-10.1) 7.7 mg/dL (8.5-10.1) Magnesium Level 2.3 mg/dL (1.8-2.4) Total Bilirubin 3.5 mg/dL (0.2-1.0) Direct Bilirubin 2.7 mg/dL (0.0-0.2) Aspartate Amino Transf (AST/SGOT) 221 U/L (15-37) Alanine Aminotransferase (ALT/SGPT) 107 U/L (16-63) Alkaline Phosphatase 437 U/L (46-116) Total Protein 5.6 g/dL (6.4-8.2) Albumin 2.1 g/dL (3.4-5.0) Lipase 75 U/L (73-393) Assessment and Plan Assessmemt and Plan Problems Medical Problems: (1) Contusion of right hand Status: Acute (2) Elevated d-dimer Status: Acute (3) Elevated liver function tests Status: Acute (4) Facial contusion Status: Acute (5) History of kidney cancer Status: Acute (6) Hyponatremia Status: Acute (7) Renal insufficiency Status: Acute (8) Severe sepsis Status: Acute (9) Syncope and collapse Status: Acute (10) Traumatic rhabdomyolysis Status: Acute Comment Review of Relevant I have reviewed the following items ernesto (where applicable) has been applied. Labs Laboratory Tests Test 10/24/19 12:05 10/24/19 13:05 10/24/19 17:30 10/25/19 00:01 D-Dimer (Ellen) 2.23 ug/mlFEU (0.00-0.50) White Blood Count 7.3 x10^3/uL (4.0-11.0) Red Blood Count 3.98 x10^6/uL (4.30-5.70) Hemoglobin 13.1 g/dL (13.0-17.5) Hematocrit 37.7 % (39.0-53.0) Mean Corpuscular Volume 95 fL (79-100) Mean Corpuscular Hemoglobin 33 pg (25-35) Mean Corpuscular Hemoglobin Concent 35 g/dL (31-37) Red Cell Distribution Width 13.9 % (11.5-14.5) Platelet Count 184 x10^3/uL (140-400) Neutrophils (%) (Auto) 80 % (31-73) Lymphocytes (%) (Auto) 12 % (24-48) Monocytes (%) (Auto) 7 % (0-9) Eosinophils (%) (Auto) 0 % (0-3) Basophils (%) (Auto) 1 % (0-3) Neutrophils # (Auto) 5.8 x10^3/uL (1.8-7.7) Lymphocytes # (Auto) 0.9 x10^3/uL (1.0-4.8) Monocytes # (Auto) 0.5 x10^3/uL (0.0-1.1) Eosinophils # (Auto) 0.0 x10^3/uL (0.0-0.7) Basophils # (Auto) 0.1 x10^3/uL (0.0-0.2) Prothrombin Time 14.7 SEC (11.7-14.0) Prothromb Time International Ratio 1.2 (0.8-1.1) Sodium Level 114 mmol/L (136-145) 118 mmol/L (136-145) Potassium Level 3.6 mmol/L (3.5-5.1) 3.8 mmol/L (3.5-5.1) Chloride Level 81 mmol/L (98-107) 87 mmol/L (98-107) Carbon Dioxide Level 15 mmol/L (21-32) 18 mmol/L (21-32) Anion Gap 18 (6-14) 13 (6-14) Blood Urea Nitrogen 12 mg/dL (8-26) 13 mg/dL (8-26) Creatinine 1.4 mg/dL (0.7-1.3) 1.1 mg/dL (0.7-1.3) Estimated GFR (Cockcroft-Gault) 50.9 67.2 BUN/Creatinine Ratio 9 (6-20) Glucose Level 171 mg/dL (70-99) 100 mg/dL (70-99) Lactic Acid Level 7.4 mmol/L (0.4-2.0) 2.3 mmol/L (0.4-2.0) Calcium Level 7.7 mg/dL (8.5-10.1) 7.3 mg/dL (8.5-10.1) Phosphorus Level 3.4 mg/dL (2.6-4.7) Magnesium Level 1.7 mg/dL (1.8-2.4) Total Bilirubin 3.8 mg/dL (0.2-1.0) Aspartate Amino Transf (AST/SGOT) 215 U/L (15-37) Alanine Aminotransferase (ALT/SGPT) 126 U/L (16-63) Alkaline Phosphatase 374 U/L (46-116) Creatine Kinase 849 U/L (39-308) Troponin I Quantitative < 0.017 ng/mL (0.000-0.055) VB-Jeu-P-Type Natriuretic Peptide 351 pg/mL (0-124) Total Protein 6.0 g/dL (6.4-8.2) Albumin 2.5 g/dL (3.4-5.0) Albumin/Globulin Ratio 0.7 (1.0-1.7) Lipase 311 U/L (73-393) Thyroid Stimulating Hormone (TSH) 1.435 uIU/mL (0.358-3.74) Urine Random Sodium 27 mmol/L (Not Estab.) Test 10/25/19 00:20 10/25/19 05:45 10/25/19 12:00 10/26/19 04:50 Sodium Level 122 mmol/L (136-145) 122 mmol/L (136-145) 124 mmol/L (136-145) 127 mmol/L (136-145) Potassium Level 3.6 mmol/L (3.5-5.1) 3.7 mmol/L (3.5-5.1) 3.2 mmol/L (3.5-5.1) 3.3 mmol/L (3.5-5.1) Chloride Level 92 mmol/L (98-107) 93 mmol/L (98-107) 94 mmol/L (98-107) 98 mmol/L (98-107) Carbon Dioxide Level 19 mmol/L (21-32) 18 mmol/L (21-32) 20 mmol/L (21-32) 19 mmol/L (21-32) Anion Gap 11 (6-14) 11 (6-14) 10 (6-14) 10 (6-14) Blood Urea Nitrogen 11 mg/dL (8-26) 10 mg/dL (8-26) 9 mg/dL (8-26) 8 mg/dL (8-26) Creatinine 1.0 mg/dL (0.7-1.3) 0.8 mg/dL (0.7-1.3) 0.9 mg/dL (0.7-1.3) 0.9 mg/dL (0.7-1.3) Estimated GFR (Cockcroft-Gault) 75.0 97.0 84.7 84.7 Glucose Level 87 mg/dL (70-99) 81 mg/dL (70-99) 85 mg/dL (70-99) 89 mg/dL (70-99) Calcium Level 7.4 mg/dL (8.5-10.1) 7.3 mg/dL (8.5-10.1) 7.8 mg/dL (8.5-10.1) 7.7 mg/dL (8.5-10.1) Lipase 138 U/L (73-393) 75 U/L (73-393) Lactic Acid Level 0.8 mmol/L (0.4-2.0) Magnesium Level 2.0 mg/dL (1.8-2.4) 2.3 mg/dL (1.8-2.4) Total Bilirubin 3.5 mg/dL (0.2-1.0) Direct Bilirubin 2.7 mg/dL (0.0-0.2) Aspartate Amino Transf (AST/SGOT) 221 U/L (15-37) Alanine Aminotransferase (ALT/SGPT) 107 U/L (16-63) Alkaline Phosphatase 437 U/L (46-116) Total Protein 5.6 g/dL (6.4-8.2) Albumin 2.1 g/dL (3.4-5.0) Laboratory Tests Test 10/25/19 12:00 10/26/19 04:50 Sodium Level 124 mmol/L (136-145) 127 mmol/L (136-145) Potassium Level 3.2 mmol/L (3.5-5.1) 3.3 mmol/L (3.5-5.1) Chloride Level 94 mmol/L (98-107) 98 mmol/L (98-107) Carbon Dioxide Level 20 mmol/L (21-32) 19 mmol/L (21-32) Anion Gap 10 (6-14) 10 (6-14) Blood Urea Nitrogen 9 mg/dL (8-26) 8 mg/dL (8-26) Creatinine 0.9 mg/dL (0.7-1.3) 0.9 mg/dL (0.7-1.3) Estimated GFR (Cockcroft-Gault) 84.7 84.7 Glucose Level 85 mg/dL (70-99) 89 mg/dL (70-99) Calcium Level 7.8 mg/dL (8.5-10.1) 7.7 mg/dL (8.5-10.1) Magnesium Level 2.3 mg/dL (1.8-2.4) Total Bilirubin 3.5 mg/dL (0.2-1.0) Direct Bilirubin 2.7 mg/dL (0.0-0.2) Aspartate Amino Transf (AST/SGOT) 221 U/L (15-37) Alanine Aminotransferase (ALT/SGPT) 107 U/L (16-63) Alkaline Phosphatase 437 U/L (46-116) Total Protein 5.6 g/dL (6.4-8.2) Albumin 2.1 g/dL (3.4-5.0) Lipase 75 U/L (73-393) Microbiology 10/24/19 Blood Culture - Preliminary, Resulted NO GROWTH AFTER 1 DAY Medications Current Medications Diphtheria/ Tetanus/Acell Pertussis (ADACEL TDap SYRINGE) 0.5 ml ONCE ONCE VAX IM Last administered on 10/24/19at 14:13; Start 10/24/19 at 14:00; Stop 10/24/19 at 14:02; Status DC Sodium Chloride 1,000 ml @ 1,000 mls/hr 1X ONCE IV Last administered on 10/24/19at 14:12; Start 10/24/19 at 14:00; Stop 10/24/19 at 14:59; Status DC Sodium Chloride 1,000 ml @ 1,000 mls/hr 1X ONCE IV Last administered on 10/24/19at 14:52; Start 10/24/19 at 14:15; Stop 10/24/19 at 15:14; Status DC Piperacillin Sod/ Tazobactam Sod 3.375 gm/Sodium Chloride 50 ml @ 100 mls/hr 1X ONCE IV Last administered on 10/24/19at 14:52; Start 10/24/19 at 14:30; Stop 10/24/19 at 14:59; Status DC Vancomycin HCl 250 ml @ 250 mls/hr 1X ONCE IV ; Start 10/24/19 at 14:30; Stop 10/24/19 at 15:29; Status UNV Vancomycin HCl 1.75 gm/Sodium Chloride 500 ml @ 250 mls/hr 1X ONCE IV Last administered on 10/24/19at 15:18; Start 10/24/19 at 14:30; Stop 10/24/19 at 16:2 9; Status DC Iohexol (Omnipaque 350 Mg/ml) 80 ml 1X ONCE IV Last administered on 10/24/19at 15:10; Start 10/24/19 at 14:30; Stop 10/24/19 at 14:31; Status DC Info (CONTRAST GIVEN -- Rx MONITORING) 1 each PRN DAILY PRN MC SEE COMMENTS; Start 10/24/19 at 14:30; Stop 10/26/19 at 14:29 Sodium Chloride 1,000 ml @ 150 mls/hr Q6H40M IV Last administered on 10/25/19at 11:57; Start 10/24/19 at 14:27; Stop 10/25/19 at 14:26; Status DC Ondansetron HCl (Zofran) 4 mg 1X ONCE IVP Last administered on 10/24/19at 15 :14; Start 10/24/19 at 15:00; Stop 10/24/19 at 15:01; Status DC Fentanyl Citrate (Fentanyl 2ml Vial) 50 mcg 1X ONCE IVP Last administered on 10/24/19at 15:15; Start 10/24/19 at 15:00; Stop 10/24/19 at 15:02; Status DC Sodium Chloride (Normal Saline Flush) 3 ml QSHIFT PRN IV AFTER MEDS AND BLOOD DRAWS; Start 10/24/19 at 17:00 Ondansetron HCl (Zofran) 4 mg PRN Q4HRS PRN IV NAUSEA/VOMITING; Start 10/24/19 at 17:00 Acetaminophen (Tylenol) 650 mg PRN Q4HRS PRN PO TEMP OVER 100.4F OR MILD PAIN; Start 10/24/19 at 17:00 Sodium Monofluorophosphate (Fleet Adult) 133 ml PRN DAILY PRN [place] CONSTIPATION; Start 10/24/19 at 17:00 Docusate Sodium (Colace) 100 mg PRN BID PRN PO HARD STOOLS; Start 10/24/19 at 17:00 Albuterol Sulfate (Ventolin Neb Soln) 2.5 mg PRN Q4HRS PRN NEB SHORTNESS OF BREATH; Start 10/24/19 at 17:00 Guaifenesin (Robitussin) 200 mg PRN Q4HRS PRN PO COUGH; Start 10/24/19 at 17:00 Enoxaparin Sodium (Lovenox 40mg Syringe) 40 mg Q24H SQ Last administered on 10/25/19at 08:57; Start 10/25/19 at 09:00 Piperacillin Sod/ Tazobactam Sod 3.375 gm/Sodium Chloride 50 ml @ 100 mls/hr Q6HRS IV Last administered on 10/26/19at 06:08; Start 10/24/19 at 18:00 Sodium Chloride 500 ml @ 50 mls/hr 1X ONCE IV Last administered on 10/24/19at 19:52; Start 10/24/19 at 18:45; Stop 10/25/19 at 04:44; Status DC Sodium Chloride 150 ml @ 50 mls/hr 1X ONCE IV Last administered on 10/25/19at 12:11; Start 10/25/19 at 12:30; Stop 10/25/19 at 15:29; Status DC Loperamide HCl (Imodium) 2 mg PRN Q15MIN PRN PO DIARRHEA; Start 10/25/19 at 12:15 Magnesium Sulfate 50 ml @ 25 mls/hr 1X ONCE IV Last administered on 10/25/19at 13:37; Start 10/25/19 at 13:30; Stop 10/25/19 at 15:29; Status DC Loperamide HCl (Immodium Oral Susp) 2 mg PRN Q30MIN PRN PO DIARRHEA Last administered on 10/25/19at 20:54; Start 10/25/19 at 13:30 Levothyroxine Sodium (Synthroid) 75 mcg DAILY06 PO Last administered on 10/26/19at 06:08; Start 10/25/19 at 16:00 Sodium Chloride 1,000 ml @ 150 mls/hr Q6H40M IV Last administered on 10/26/19at 04:18; Start 10/25/19 at 21:00 Active Scripts Active Reported Irbesartan 300 Mg Tablet 300 Mg PO DAILY Toprol Xl (Metoprolol Succinate) 25 Mg Tab.er.24h 50 Mg PO DAILY Atorvastatin Calcium 40 Mg Tablet 1 Tab PO DAILY Amlodipine Besylate 10 Mg Tablet 10 Mg PO DAILY Vascepa (Icosapent Ethyl) 1 Gm Capsule 2 Cap PO BID 30 Days Levothyroxine Sodium 75 Mcg Tablet 1 Tab PO DAILY Vitals/I & O Vital Sign - Last 24 Hours 10/25/19 10/25/19 10/25/19 10/25/19 09:00 10:00 11:00 12:00 Pulse 60 72 76 Resp 20 B/P (MAP) 98/63 (75) 123/69 (87) O2 Delivery Room Air 10/25/19 10/25/19 10/25/19 10/25/19 12:00 13:00 14:00 15:36 Temp 98.4 98.4 Pulse 79 74 85 80 Resp 19 B/P (MAP) 118/73 (88) 117/70 (86) 120/72 (88) 125/73 (90) Pulse Ox 97 O2 Delivery Room Air Room Air Room Air Room Air 10/25/19 10/25/19 10/25/19 10/25/19 16:00 16:00 17:00 18:00 Temp 98.4 98.4 Pulse 76 77 80 Resp 22 B/P (MAP) 109/69 (82) 133/76 (95) 122/74 (90) Pulse Ox 95 O2 Delivery Room Air Room Air Room Air Room Air 10/25/19 10/25/19 10/25/19 10/25/19 19:00 20:00 20:00 21:00 Temp 97.6 97.6 Pulse 79 80 77 Resp 18 18 B/P (MAP) 105/63 (77) 114/77 (89) 114/77 (89) Pulse Ox 96 97 97 O2 Delivery Room Air Room Air Room Air Room Air 10/25/19 10/25/19 10/26/19 10/26/19 22:00 23:00 00:00 00:00 Temp 97.8 97.8 Pulse 86 80 88 Resp 18 16 18 B/P (MAP) 114/68 (83) 116/74 (88) 116/71 (86) Pulse Ox 96 96 97 O2 Delivery Room Air Room Air Room Air 10/26/19 10/26/19 10/26/19 10/26/19 01:00 02:00 03:00 04:00 Temp 98.1 98.1 Pulse 88 85 77 82 Resp 18 20 16 20 B/P (MAP) 116/71 (86) 124/71 (88) 122/72 (89) 113/70 (84) Pulse Ox 96 97 97 98 O2 Delivery Room Air Room Air Room Air Room Air 10/26/19 10/26/19 10/26/19 04:00 05:00 06:00 Pulse 89 87 Resp 18 20 B/P (MAP) 113/73 (86) 132/76 (94) Pulse Ox 97 98 O2 Delivery Room Air Room Air Room Air Intake and Output 10/25/19 10/25/19 10/26/19 15:00 23:00 07:00 Intake Total 1407 ml 1830 ml Output Total 650 ml 400 ml 600 ml Balance -650 ml 1007 ml 1230 ml SKYLAR HONG MD Oct 26, 2019 08:26
--- NOTE | 2019-10-26 08:50 | PDOC ---
PROGRESS NOTES Assessment Problems Medical Problems: (1) Contusion of right hand Status: Acute (2) Elevated d-dimer Status: Acute (3) Elevated liver function tests Status: Acute (4) Facial contusion Status: Acute (5) History of kidney cancer Status: Acute (6) Hyponatremia Status: Acute (7) Renal insufficiency Status: Acute (8) Severe sepsis Status: Acute (9) Syncope and collapse Status: Acute (10) Traumatic rhabdomyolysis Status: Acute Metabolic encephalopathy due to severe hyponatremia, improved Traumatic rhabdomyolysis, scalp contusion from fall, head CT negative Medical issues: hypertension coronary artery disease, right kidney renal cell carcinoma, history of alcohol abuse, lactic acidosis, mediastinal lymphadenopathy, possible pancreatitis, transaminitis, elevated d- dimer, meta bolic acidosis, small ascites, severe protein calorie malnutrition Plan Treat medical diseases Await carotid Doppler studies ordered by Dr. Edwards Physical therapy to see Subjective He feels a little unsteady on his feet, has not been out of bed Objective Vital Signs Date Time Temp Pulse Resp B/P (MAP) Pulse Ox O2 Delivery O2 Flow Rate FiO2 10/26/19 06:00 87 20 132/76 (94) 98 Room Air 10/26/19 04:00 98.1 98.1 Intake and Output 10/26/19 07:00 Intake Total 3237 ml Output Total 1650 ml Balance 1587 ml IV Total 1880 ml Other 1357 ml Output Urine Total 1150 ml Stool Total 500 ml # Voids 3 # Bowel Movements 11 PHYSICAL EXAM Alert. Oriented to time, place and person. PERRL. EOMI. CN: no focal findings. Muscle tone: normal. Muscle strength: 5/5 DTR: 2+ Plantar reflex: flexor Gait: not examined in bed. Sensory exam: no abnormal findings. No cerebellar signs elicited. Review of Relevant I have reviewed the following items ernesto (where applicable) has been applied. Labs Laboratory Tests Test 10/24/19 12:05 10/24/19 13:05 10/24/19 17:30 10/25/19 00:01 D-Dimer (Ellen) 2.23 ug/mlFEU (0.00-0.50) White Blood Count 7.3 x10^3/uL (4.0-11.0) Red Blood Count 3.98 x10^6/uL (4.30-5.70) Hemoglobin 13.1 g/dL (13.0-17.5) Hematocrit 37.7 % (39.0-53.0) Mean Corpuscular Volume 95 fL (79-100) Mean Corpuscular Hemoglobin 33 pg (25-35) Mean Corpuscular Hemoglobin Concent 35 g/dL (31-37) Red Cell Distribution Width 13.9 % (11.5-14.5) Platelet Count 184 x10^3/uL (140-400) Neutrophils (%) (Auto) 80 % (31-73) Lymphocytes (%) (Auto) 12 % (24-48) Monocytes (%) (Auto) 7 % (0-9) Eosinophils (%) (Auto) 0 % (0-3) Basophils (%) (Auto) 1 % (0-3) Neutrophils # (Auto) 5.8 x10^3/uL (1.8-7.7) Lymphocytes # (Auto) 0.9 x10^3/uL (1.0-4.8) Monocytes # (Auto) 0.5 x10^3/uL (0.0-1.1) Eosinophils # (Auto) 0.0 x10^3/uL (0.0-0.7) Basophils # (Auto) 0.1 x10^3/uL (0.0-0.2) Prothrombin Time 14.7 SEC (11.7-14.0) Prothromb Time International Ratio 1.2 (0.8-1.1) Sodium Level 114 mmol/L (136-145) 118 mmol/L (136-145) Potassium Level 3.6 mmol/L (3.5-5.1) 3.8 mmol/L (3.5-5.1) Chloride Level 81 mmol/L (98-107) 87 mmol/L (98-107) Carbon Dioxide Level 15 mmol/L (21-32) 18 mmol/L (21-32) Anion Gap 18 (6-14) 13 (6-14) Blood Urea Nitrogen 12 mg/dL (8-26) 13 mg/dL (8-26) Creatinine 1.4 mg/dL (0.7-1.3) 1.1 mg/dL (0.7-1.3) Estimated GFR (Cockcroft-Gault) 50.9 67.2 BUN/Creatinine Ratio 9 (6-20) Glucose Level 171 mg/dL (70-99) 100 mg/dL (70-99) Lactic Acid Level 7.4 mmol/L (0.4-2.0) 2.3 mmol/L (0.4-2.0) Calcium Level 7.7 mg/dL (8.5-10.1) 7.3 mg/dL (8.5-10.1) Phosphorus Level 3.4 mg/dL (2.6-4.7) Magnesium Level 1.7 mg/dL (1.8-2.4) Total Bilirubin 3.8 mg/dL (0.2-1.0) Aspartate Amino Transf (AST/SGOT) 215 U/L (15-37) Alanine Aminotransferase (ALT/SGPT) 126 U/L (16-63) Alkaline Phosphatase 374 U/L (46-116) Creatine Kinase 849 U/L (39-308) Troponin I Quantitative < 0.017 ng/mL (0.000-0.055) VN-Srh-R-Type Natriuretic Peptide 351 pg/mL (0-124) Total Protein 6.0 g/dL (6.4-8.2) Albumin 2.5 g/dL (3.4-5.0) Albumin/Globulin Ratio 0.7 (1.0-1.7) Lipase 311 U/L (73-393) Thyroid Stimulating Hormone (TSH) 1.435 uIU/mL (0.358-3.74) Urine Random Sodium 27 mmol/L (Not Estab.) Test 10/25/19 00:20 10/25/19 05:45 10/25/19 12:00 10/26/19 04:50 Sodium Level 122 mmol/L (136-145) 122 mmol/L (136-145) 124 mmol/L (136-145) 127 mmol/L (136-145) Potassium Level 3.6 mmol/L (3.5-5.1) 3.7 mmol/L (3.5-5.1) 3.2 mmol/L (3.5-5.1) 3.3 mmol/L (3.5-5.1) Chloride Level 92 mmol/L (98-107) 93 mmol/L (98-107) 94 mmol/L (98-107) 98 mmol/L (98-107) Carbon Dioxide Level 19 mmol/L (21-32) 18 mmol/L (21-32) 20 mmol/L (21-32) 19 mmol/L (21-32) Anion Gap 11 (6-14) 11 (6-14) 10 (6-14) 10 (6-14) Blood Urea Nitrogen 11 mg/dL (8-26) 10 mg/dL (8-26) 9 mg/dL (8-26) 8 mg/dL (8-26) Creatinine 1.0 mg/dL (0.7-1.3) 0.8 mg/dL (0.7-1.3) 0.9 mg/dL (0.7-1.3) 0.9 mg/dL (0.7-1.3) Estimated GFR (Cockcroft-Gault) 75.0 97.0 84.7 84.7 Glucose Level 87 mg/dL (70-99) 81 mg/dL (70-99) 85 mg/dL (70-99) 89 mg/dL (70-99) Calcium Level 7.4 mg/dL (8.5-10.1) 7.3 mg/dL (8.5-10.1) 7.8 mg/dL (8.5-10.1) 7.7 mg/dL (8.5-10.1) Lipase 138 U/L (73-393) 75 U/L (73-393) Lactic Acid Level 0.8 mmol/L (0.4-2.0) Magnesium Level 2.0 mg/dL (1.8-2.4) 2.3 mg/dL (1.8-2.4) Total Bilirubin 3.5 mg/dL (0.2-1.0) Direct Bilirubin 2.7 mg/dL (0.0-0.2) Aspartate Amino Transf (AST/SGOT) 221 U/L (15-37) Alanine Aminotransferase (ALT/SGPT) 107 U/L (16-63) Alkaline Phosphatase 437 U/L (46-116) Total Protein 5.6 g/dL (6.4-8.2) Albumin 2.1 g/dL (3.4-5.0) Laboratory Tests Test 10/25/19 12:00 10/26/19 04:50 Sodium Level 124 mmol/L (136-145) 127 mmol/L (136-145) Potassium Level 3.2 mmol/L (3.5-5.1) 3.3 mmol/L (3.5-5.1) Chloride Level 94 mmol/L (98-107) 98 mmol/L (98-107) Carbon Dioxide Level 20 mmol/L (21-32) 19 mmol/L (21-32) Anion Gap 10 (6-14) 10 (6-14) Blood Urea Nitrogen 9 mg/dL (8-26) 8 mg/dL (8-26) Creatinine 0.9 mg/dL (0.7-1.3) 0.9 mg/dL (0.7-1.3) Estimated GFR (Cockcroft-Gault) 84.7 84.7 Glucose Level 85 mg/dL (70-99) 89 mg/dL (70-99) Calcium Level 7.8 mg/dL (8.5-10.1) 7.7 mg/dL (8.5-10.1) Magnesium Level 2.3 mg/dL (1.8-2.4) Total Bilirubin 3.5 mg/dL (0.2-1.0) Direct Bilirubin 2.7 mg/dL (0.0-0.2) Aspartate Amino Transf (AST/SGOT) 221 U/L (15-37) Alanine Aminotransferase (ALT/SGPT) 107 U/L (16-63) Alkaline Phosphatase 437 U/L (46-116) Total Protein 5.6 g/dL (6.4-8.2) Albumin 2.1 g/dL (3.4-5.0) Lipase 75 U/L (73-393) Microbiology 10/24/19 Blood Culture - Preliminary, Resulted NO GROWTH AFTER 1 DAY Medications Current Medications Diphtheria/ Tetanus/Acell Pertussis (ADACEL TDap SYRINGE) 0.5 ml ONCE ONCE VAX IM Last administered on 10/24/19at 14:13; Start 10/24/19 at 14:00; Stop 10/24/19 at 14:02; Status DC Sodium Chloride 1,000 ml @ 1,000 mls/hr 1X ONCE IV Last administered on 10/24/19at 14:12; Start 10/24/19 at 14:00; Stop 10/24/19 at 14:59; Status DC Sodium Chloride 1,000 ml @ 1,000 mls/hr 1X ONCE IV Last administered on 10/24/19at 14:52; Start 10/24/19 at 14:15; Stop 10/24/19 at 15:14; Status DC Piperacillin Sod/ Tazobactam Sod 3.375 gm/Sodium Chloride 50 ml @ 100 mls/hr 1X ONCE IV Last administered on 10/24/19at 14:52; Start 10/24/19 at 14:30; Stop 10/24/19 at 14:59; Status DC Vancomycin HCl 250 ml @ 250 mls/hr 1X ONCE IV ; Start 10/24/19 at 14:30; Stop 10/24/19 at 15:29; Status UNV Vancomycin HCl 1.75 gm/Sodium Chloride 500 ml @ 250 mls/hr 1X ONCE IV Last administered on 10/24/19at 15:18; Start 10/24/19 at 14:30; Stop 10/24/19 at 16:29; Status DC Iohexol (Omnipaque 350 Mg/ml) 80 ml 1X ONCE IV Last administered on 10/24/19at 15:10; Start 10/24/19 at 14:30; Stop 10/24/19 at 14:31; Status DC Info (CONTRAST GIVEN -- Rx MONITORING) 1 each PRN DAILY PRN MC SEE COMMENTS; Start 10/24/19 at 14:30; Stop 10/26/19 at 14:29 Sodium Chloride 1,000 ml @ 150 mls/hr Q6H40M IV Last administered on 10/25/19at 11:57; Start 10/24/19 at 14:27; Stop 10/25/19 at 14:26; Status DC Ondansetron HCl (Zofran) 4 mg 1X ONCE IVP Last administered on 10/24/19at 15:14; Start 10/24/19 at 15:00; Stop 10/24/19 at 15:01; Status DC Fentanyl Citrate (Fentanyl 2ml Vial) 50 mcg 1X ONCE IVP Last administered on 10/24/19at 15:15; Start 10/24/19 at 15:00; Stop 10/24/19 at 15:02; Status DC Sodium Chloride (Normal Saline Flush) 3 ml QSHIFT PRN IV AFTER MEDS AND BLOOD DRAWS; Start 10/24/19 at 17:00 Ondansetron HCl (Zofran) 4 mg PRN Q4HRS PRN IV NAUSEA/VOMITING; Start 10/24/19 at 17:00 Acetaminophen (Tylenol) 650 mg PRN Q4HRS PRN PO TEMP OVER 100.4F OR MILD PAIN; Start 10/24/19 at 17:00 Sodium Monofluorophosphate (Fleet Adult) 133 ml PRN DAILY PRN PA CONSTIPATION; Start 10/24/19 at 17:00 Docusate Sodium (Colace) 100 mg PRN BID PRN PO HARD STOOLS; Start 10/24/19 at 17:00 Albuterol Sulfate (Ventolin Neb Soln) 2.5 mg PRN Q4HRS PRN NEB SHORTNESS OF BREATH; Start 10/24/19 at 17:00 Guaifenesin (Robitussin) 200 mg PRN Q4HRS PRN PO COUGH; Start 10/24/19 at 17:00 Enoxaparin Sodium (Lovenox 40mg Syringe) 40 mg Q24H SQ Last administered on 10/25/19at 08:57; Start 10/25/19 at 09:00 Piperacillin Sod/ Tazobactam Sod 3.375 gm/Sodium Chloride 50 ml @ 100 mls/hr Q6HRS IV Last administered on 10/26/19at 06:08; Start 10/24/19 at 18:00 Sodium Chloride 500 ml @ 50 mls/hr 1X ONCE IV Last administered on 10/24/19at 19:52; Start 10/24/19 at 18:45; Stop 10/25/19 at 04:44; Status DC Sodium Chloride 150 ml @ 50 mls/hr 1X ONCE IV Last administered on 10/25/19at 12:11; Start 10/25/19 at 12:30; Stop 10/25/19 at 15:29; Status DC Loperamide HCl (Imodium) 2 mg PRN Q15MIN PRN PO DIARRHEA; Start 10/25/19 at 12:15 Magnesium Sulfate 50 ml @ 25 mls/hr 1X ONCE IV Last administered on 10/25/19at 13:37; Start 10/25/19 at 13:30; Stop 10/25/19 at 15:29; Status DC Loperamide HCl (Immodium Oral Susp) 2 mg PRN Q30MIN PRN PO DIARRHEA Last administered on 10/25/19at 20:54; Start 10/25/19 at 13:30 Levothyroxine Sodium (Synthroid) 75 mcg DAILY06 PO Last administered on 10/26/19at 06:08; Start 10/25/19 at 16:00 Sodium Chloride 1,000 ml @ 150 mls/hr Q6H40M IV Last administered on 10/26/19at 04:18; Start 10/25/19 at 21:00 Active Scripts Active Reported Irbesartan 300 Mg Tablet 300 Mg PO DAILY Toprol Xl (Metoprolol Succinate) 25 Mg Tab.er.24h 50 Mg PO DAILY Atorvastatin Calcium 40 Mg Tablet 1 Tab PO DAILY Amlodipine Besylate 10 Mg Tablet 10 Mg PO DAILY Vascepa (Icosapent Ethyl) 1 Gm Capsule 2 Cap PO BID 30 Days Levothyroxine Sodium 75 Mcg Tablet 1 Tab PO DAILY Vitals/I & O Vital Sign - Last 24 Hours 10/25/19 10/25/19 10/25/19 10/25/19 09:00 10:00 11:00 12:00 Pulse 60 72 76 Resp 20 B/P (MAP) 98/63 (75) 123/69 (87) O2 Delivery Room Air 10/25/19 10/25/19 10/25/19 10/25/19 12:00 13:00 14:00 15:36 Temp 98.4 98.4 Pulse 79 74 85 80 Resp 19 B/P (MAP) 118/73 (88) 117/70 (86) 120/72 (88) 125/73 (90) Pulse Ox 97 O2 Delivery Room Air Room Air Room Air Room Air 10/25/19 10/25/19 10/25/19 10/25/19 16:00 16:00 17:00 18:00 Temp 98.4 98.4 Pulse 76 77 80 Resp 18 22 B/P (MAP) 109/69 (82) 133/76 (95) 122/74 (90) Pulse Ox 95 O2 Delivery Room Air Room Air Room Air Room Air 10/25/19 10/25/19 10/25/19 10/25/19 19:00 20:00 20:00 21:00 Temp 97.6 97.6 Pulse 79 80 77 Resp 20 18 18 B/P (MAP) 105/63 (77) 114/77 (89) 114/77 (89) Pulse Ox 96 97 97 O2 Delivery Room Air Room Air Room Air Room Air 10/25/19 10/25/19 10/26/19 10/26/19 22:00 23:00 00:00 00:00 Temp 97.8 97.8 Pulse 86 80 88 Resp 18 16 18 B/P (MAP) 114/68 (83) 116/74 (88) 116/71 (86) Pulse Ox 96 96 97 O2 Delivery Room Air Room Air Room Air 10/26/19 10/26/19 10/26/19 10/26/19 01:00 02:00 03:00 04:00 Temp 98.1 98.1 Pulse 88 85 77 82 Resp 18 20 16 20 B/P (MAP) 116/71 (86) 124/71 (88) 122/72 (89) 113/70 (84) Pulse Ox 96 97 97 98 O2 Delivery Room Air Room Air Room Air Room Air 10/26/19 10/26/19 10/26/19 04:00 05:00 06:00 Pulse 89 87 Resp 18 20 B/P (MAP) 113/73 (86) 132/76 (94) Pulse Ox 97 98 O2 Delivery Room Air Room Air Room Air Intake and Output 10/25/19 10/25/19 10/26/19 15:00 23:00 07:00 Intake Total 1407 ml 1830 ml Output Total 650 ml 400 ml 600 ml Balance -650 ml 1007 ml 1230 ml TI MORENO MD Oct 26, 2019 08:50
[2019-10-26] MEDS: ENOXAPARIN 40 MG/0.4 ML SYRINGE. SQ SCH (09:12)
--- NOTE | 2019-10-26 10:28 | RAD ---
EXAM: Carotid Doppler sonogram. HISTORY: Syncope. Carotid atherosclerosis. TECHNIQUE: Elizondo scale and color Doppler sonographic evaluation of the neck with spectral waveform analysis was performed and static images are submitted for review. FINDINGS: There is mild atherosclerotic plaque within the carotid bifurcations. The peak systolic velocity within the right common carotid artery is 117 cm/sec. The peak systolic velocity within the right internal carotid artery is 106 cm/sec and the end diastolic velocity within the right internal carotid artery is 28 cm/sec. The right ICA/CCA ratio is 1.0. The peak systolic velocity within the left common carotid artery is 122 cm/sec. The peak systolic velocity within the left internal carotid artery is 104 cm/sec and the end diastolic velocity within the left internal carotid artery is 30 cm/sec. The left ICA/CCA ratio is 1.2. There is normal antegrade flow within both vertebral arteries. IMPRESSION: No Doppler evidence of hemodynamically significant stenosis within the internal carotid arteries or vertebral arteries. PQRS Compliance Statement - Stenosis calculations for CT, MR and conventional angiography are based upon measurement of the distal ICA diameter in accordance with the NASCET methodology. Stenosis calculations for carotid ultrasound studies are derived from validated velocity criteria which are known to correlate with the NASCET methodology. Electronically signed by: Yoana Mackey MD (10/26/2019 10:25 AM) [id number]
[2019-10-26] MEDS ORDERED: POTASSIUM CHLORIDE 20 MEQ TABLET.ER. PO ONE (10:30)
--- NOTE | 2019-10-26 10:35 | PDOC ---
Subjective: Subjective: Has had diarrhea off and on since [place] (that had to be redone[place] [facility] [place] Currently diarrhea is not better or worse. Also says "it has to do with drinking." Takes Pepto-Bismol PRN. Had a colonoscopy several years ago (no diarrhea issues then) that was reportedly negative (not sure where that was done). Typically 4-5 beers daily, says last drink was Saturday and he's done forever. Would like to try some liquids but not more than that - says he hasn't eaten anything since Saturday because he's not sure his stomach could take it. "It's just a little tender." Gives additional h/o occasional heartburn and "sometimes I don't eat for a couple days and then I have chili and I throw up." Objective: Objective: D/w nurse - having diarrhea, stool tests sent, remains NPO. [facility] records reviewed: H/o RCC w/ local recurrence. CT 06/22/19: new hepatic lesions LFTs on 09/14/19: bili 0.9, AST 49, ALT 52, Alk Phos 92. Sodium 138 then. Abd MRI 09/14/19: unchagned hyperenhancing hepatic mass most c/w metastasis from RCC, previous partial right nephrectomy, unchanged small enhancing right lower renal pole lesions most c/w additional RCC. Right lobe liver mass biopsy 10/07/19: steatohepatitis (30%) w/ prominent ballooned hepatocytes and lobular inflammation (ZANDER 4/8), prominent pericellular/sinusoidal fibrosis and focal bridging fibrosis (stage 3/4), no evidence of discrete lesional/masslike tissue present. Vital Signs: Vital Signs Date Time Temp Pulse Resp B/P (MAP) Pulse Ox O2 Delivery O2 Flow Rate FiO2 10/26/19 06:00 87 20 132/76 (94) 98 Room Air 10/26/19 04:00 98.1 98.1 Labs: Laboratory Tests Test 10/25/19 12:00 10/26/19 04:50 Sodium Level 124 mmol/L 127 mmol/L Potassium Level 3.2 mmol/L 3.3 mmol/L Chloride Level 94 mmol/L 98 mmol/L Carbon Dioxide Level 20 mmol/L 19 mmol/L Anion Gap 10 10 Blood Urea Nitrogen 9 mg/dL 8 mg/dL Creatinine 0.9 mg/dL 0.9 mg/dL Estimated GFR (Cockcroft-Gault) 84.7 84.7 Glucose Level 85 mg/dL 89 mg/dL Calcium Level 7.8 mg/dL 7.7 mg/dL Magnesium Level 2.3 mg/dL Total Bilirubin 3.5 mg/dL Direct Bilirubin 2.7 mg/dL Aspartate Amino Transf (AST/SGOT) 221 U/L Alanine Aminotransferase (ALT/SGPT) 107 U/L Alkaline Phosphatase 437 U/L Total Protein 5.6 g/dL Albumin 2.1 g/dL Lipase 75 U/L BLOOD CULTURE Preliminary NO GROWTH AFTER 1 DAY Imaging: Carotid Doppler 10/[address] C/A/P 10/23 IMPRESSION: 1. There is suboptimal opacification of the pulmonary arteries with contrast limiting the sensitivity of this study. No obvious filling defect is seen within the major pulmonary arteries. 2. 3.1 cm enlarged mediastinal lymph node concerning for a neoplastic process or metastatic lymphadenopathy. IMPRESSION: 1. Findings are seen which are felt to most likely reflect acute pancreatitis as discussed above. Clinical correlation is recommended. No pancreatic pseudocyst is seen. 2. Small amount of ascites is seen within the abdomen and pelvis. PE: GEN: NAD LUNGS: CTAB HEART: RRR ABD: round, some distention, ?mildly tender RUQ/epigastrium NEURO/PSYCH: gives a bit of a rambling history but pleasant A/P: Weakness, s/p fall Abnormal LFTs - Alk Phos worse; stable bili, AST, ALT Abnormal CT - mediastinal lymphadenopathy, fullness of the head of the pancreas is seen w/ increased density within the fat surrounding the pancreas and duodenum, fatty liver, contracted GB - lipase remains WNL H/o alcohol overuse (last drink 10/23/19) and tobacco use (quit 20 years ago) Chronic diarrhea, ?abd pain, ?vomiting Hyponatremia, lactic acidosis, elevated CK H/o RCC s/p partial nephrectomy w/ recurrence -- [facility] records as above - liver biopsy w/ steatohepatitis. As yesterday, can try clear liquids - d/w nurse. Await stool studies, has Imodium ordered. Will review all w/ Dr. Hernandez. Hemodynamically unstable?: No Is patient in severe pain?: No Is NPO status required?: No IRVIN MCKNIGHT Oct 26, 2019 10:34
--- NOTE | 2019-10-26 11:23 | PDOC ---
Renal-Progress Notes Subjective Notes Notes NO NEW COMPLAINTS History of Present Illness Hx of present illness STABLE Vitals Vitals Vital Signs Date Time Temp Pulse Resp B/P (MAP) Pulse Ox O2 Delivery O2 Flow Rate FiO2 10/26/19 10:15 98.3 98 17 112/76 (88) 98 Room Air 98.3 Weight Weight [ ] I.O. Intake and Output Intake and Output 10/26/19 07:00 Intake Total 3237 ml Output Total 1650 ml Balance 1587 ml IV Total 1880 ml Other 1357 ml Output Urine Total 1150 ml Stool Total 500 ml # Voids 3 # Bowel Movements 11 Labs Labs Laboratory Tests Test 10/25/19 12:00 10/26/19 04:50 Sodium Level 124 mmol/L (136-145) 127 mmol/L (136-145) Potassium Level 3.2 mmol/L (3.5-5.1) 3.3 mmol/L (3.5-5.1) Chloride Level 94 mmol/L (98-107) 98 mmol/L (98-107) Carbon Dioxide Level 20 mmol/L (21-32) 19 mmol/L (21-32) Anion Gap 10 (6-14) 10 (6-14) Blood Urea Nitrogen 9 mg/dL (8-26) 8 mg/dL (8-26) Creatinine 0.9 mg/dL (0.7-1.3) 0.9 mg/dL (0.7-1.3) Estimated GFR (Cockcroft-Gault) 84.7 84.7 Glucose Level 85 mg/dL (70-99) 89 mg/dL (70-99) Calcium Level 7.8 mg/dL (8.5-10.1) 7.7 mg/dL (8.5-10.1) Magnesium Level 2.3 mg/dL (1.8-2.4) Total Bilirubin 3.5 mg/dL (0.2-1.0) Direct Bilirubin 2.7 mg/dL (0.0-0.2) Aspartate Amino Transf (AST/SGOT) 221 U/L (15-37) Alanine Aminotransferase (ALT/SGPT) 107 U/L (16-63) Alkaline Phosphatase 437 U/L (46-116) Total Protein 5.6 g/dL (6.4-8.2) Albumin 2.1 g/dL (3.4-5.0) Lipase 75 U/L (73-393) Micro Micro Microbiology 10/24/19 Blood Culture - Preliminary, Resulted NO GROWTH AFTER 1 DAY Review of Systems Constitutional: yes: weakness, alert Ears/Nose/Throat: Yes: no symptom reported Eyes: Yes: no symptom reported Pulmonary: Yes no symptom reported Cardiovascular: Yes no symptom reported Gastrointestional: Yes: other (DISTENTION) Skin: Yes no symptom reported Psychiatric/Neurological: Yes: no symptom reported Physical Exam General Appearance: no apparent distress Respiratory: decreased breath sounds Heart: S1S2 Abdomen: soft, bowel sounds present Genitourinary: bladder flat Extremities: pulses present Neurology: alert Musculoskeletal: Osteoarthritis Assessment Assessment IMP MET ENCEPHALOPATHY SEVERE HYPONATREMIA-IMPROVED ? PANCREATIC CYST VS MASS ? HX OF RIGHT RCCA LOW MAG-CORRECTED LIVER FAILURE ?ETOH ABUSE PLAN 3% SALINE NEEDED WILL CHECK SERUM AND URINE OSM URINE LYTES PENDING AMALIA ALICIA MD Oct 26, 2019 11:23
--- NOTE | 2019-10-26 15:00 | NUR ---
Pt refusing CHG bath-- Sharlene completed this morning
--- NOTE | 2019-10-26 16:02 | NUR ---
SW following. Discussed with RN, pt from home, gets around fine. Pt likely transferring out of the CVICU. SW will continue to follow.
[2019-10-27 04:00] VITALS: BP 127/72
[2019-10-27 05:12] LABS: CALCIUM 7.8 mg/dL (8.5-10.1); CREATININE 0.9 mg/dL (0.7-1.3); GFR 84.7; POTASSIUM 3.7 mmol/L (3.5-5.1)
[2019-10-27] MEDS: LEVOTHYROXINE 75 MCG TABLET PO SCH (05:30)
[2019-10-27] MEDS: PIPERACILLIN/TAZOBACTAM 3.375 GM in IV NORMAL SALINE 50ML 50 ML IV SCH ×2 (05:30→11:34)
[2019-10-27] MEDS: IV NORMAL SALINE 1000ML BAG 1,000 ML IV SCH ×3 (05:31→22:00)
[2019-10-27 07:57] VITALS: BP 134/85
--- NOTE | 2019-10-27 08:14 | PDOC ---
PROGRESS NOTES Chief Complaint Chief Complaint Hyponatremia 114 on admit now 127 History of right renal mass Lactic acidosis 3.1 cm enlarged mediastinal lymph node concerning for a neoplastic process or metastatic lymphadenopathy. by ct Pancreatitis - alcohol induced transaminitis Elevated d- dimer Anion gap metabolic acidosis Small ascites Severe protein calorie malnutrition Hypokalemia History of Present Illness History of Present Illness Mr Anderson is a 64 year old male with history of hypertension, coronary artery disease, right kidney mass, heavy ETOH use who presents via EMS with complaining of syncope at work. Found with Na 114, bilirubin 3.8. Found on CT abdomen/pelvis with increased lucency of pancreatic head with concern for pancreatitis and 3.1 cm enlarged mediastinal lymph node concerning for a neoplastic process or metastatic lymphadenopathy. Seen by GI neurology and nephrology 10/24: Diarrhea noted 10/25: Na 127 today. K 3.3. Bilirubin 2.7, improved.No CP. Some nausea. Still with loose stools. Counseled on ETOH cessation, notes his last drink was saturday and he has 2-6 drinks per day. Na 130. CA 19-9 2247. He is ambulating better. Feeling overall better. No shortness of breath or chest pain. D/w son, Sarkis the need for outpatient f/u for pancreatic lucency/mass and elevated CA 19-9, wishes to f/u at [facility] where he recently had a liver biopsy. Vitals Vitals Vital Signs Date Time Temp Pulse Resp B/P (MAP) Pulse Ox O2 Delivery O2 Flow Rate FiO2 10/27/19 07:57 Room Air 10/27/19 07:57 97.9 89 16 134/85 (101) 99 97.9 Physical Exam General: Alert, Oriented X3 Heart: Regular rate, Normal S1, Normal S2 Abdomen: Normal bowel sounds, Soft, No tenderness, No hepatosplenomegaly, No masses Extremities: No clubbing Skin: No rashes Labs LABS Laboratory Tests Test 10/27/19 04:12 Sodium Level 130 mmol/L (136-145) Potassium Level 3.7 mmol/L (3.5-5.1) Chloride Level 101 mmol/L (98-107) Carbon Dioxide Level 19 mmol/L (21-32) Anion Gap 10 (6-14) Blood Urea Nitrogen 6 mg/dL (8-26) Creatinine 0.9 mg/dL (0.7-1.3) Estimated GFR (Cockcroft-Gault) 84.7 Glucose Level 97 mg/dL (70-99) Calcium Level 7.8 mg/dL (8.5-10.1) Assessment and Plan Assessmemt and Plan Problems Medical Problems: (1) Contusion of right hand Status: Acute (2) Elevated d-dimer Status: Acute (3) Elevated liver function tests Status: Acute (4) Facial contusion Status: Acute (5) History of kidney cancer Status: Acute (6) Hyponatremia Status: Acute (7) Renal insufficiency Status: Acute (8) Severe sepsis Status: Acute (9) Syncope and collapse Status: Acute (10) Traumatic rhabdomyolysis Status: Acute Comment Review of Relevant I have reviewed the following items ernesto (where applicable) has been applied. Labs Laboratory Tests Test 10/25/19 12:00 10/26/19 04:50 10/27/19 04:12 Sodium Level 124 mmol/L (136-145) 127 mmol/L (136-145) 130 mmol/L (136-145) Potassium Level 3.2 mmol/L (3.5-5.1) 3.3 mmol/L (3.5-5.1) 3.7 mmol/L (3.5-5.1) Chloride Level 94 mmol/L (98-107) 98 mmol/L (98-107) 101 mmol/L (98-107) Carbon Dioxide Level 20 mmol/L (21-32) 19 mmol/L (21-32) 19 mmol/L (21-32) Anion Gap 10 (6-14) 10 (6-14) 10 (6-14) Blood Urea Nitrogen 9 mg/dL (8-26) 8 mg/dL (8-26) 6 mg/dL (8-26) Creatinine 0.9 mg/dL (0.7-1.3) 0.9 mg/dL (0.7-1.3) 0.9 mg/dL (0.7-1.3) Estimated GFR (Cockcroft-Gault) 84.7 84.7 84.7 Glucose Level 85 mg/dL (70-99) 89 mg/dL (70-99) 97 mg/dL (70-99) Calcium Level 7.8 mg/dL (8.5-10.1) 7.7 mg/dL (8.5-10.1) 7.8 mg/dL (8.5-10.1) Magnesium Level 2.3 mg/dL (1.8-2.4) Total Bilirubin 3.5 mg/dL (0.2-1.0) Direct Bilirubin 2.7 mg/dL (0.0-0.2) Aspartate Amino Transf (AST/SGOT) 221 U/L (15-37) Alanine Aminotransferase (ALT/SGPT) 107 U/L (16-63) Alkaline Phosphatase 437 U/L (46-116) Total Protein 5.6 g/dL (6.4-8.2) Albumin 2.1 g/dL (3.4-5.0) Lipase 75 U/L (73-393) Laboratory Tests Test 10/27/19 04:12 Sodium Level 130 mmol/L (136-145) Potassium Level 3.7 mmol/L (3.5-5.1) Chloride Level 101 mmol/L (98-107) Carbon Dioxide Level 19 mmol/L (21-32) Anion Gap 10 (6-14) Blood Urea Nitrogen 6 mg/dL (8-26) Creatinine 0.9 mg/dL (0.7-1.3) Estimated GFR (Cockcroft-Gault) 84.7 Glucose Level 97 mg/dL (70-99) Calcium Level 7.8 mg/dL (8.5-10.1) Microbiology 10/24/19 Blood Culture - Preliminary, Resulted NO GROWTH AFTER 2 DAYS Medications Current Medications Diphtheria/ Tetanus/Acell Pertussis (ADACEL TDap SYRINGE) 0.5 ml ONCE ONCE VAX IM Last administered on 10/24/19at 14:13; Start 10/24/19 at 14:00; Stop 10/24/19 at 14:02; Status DC Sodium Chloride 1,000 ml @ 1,000 mls/hr 1X ONCE IV Last administered on 10/23at 14:12; Start 10/24/19 at 14:00; Stop 10/24/19 at 14:59; Status DC Sodium Chloride 1,000 ml @ 1,000 mls/hr 1X ONCE IV Last administered on 10/24/19at 14:52; Start 10/24/19 at 14:15; Stop 10/24/19 at 15:14; Status DC Piperacillin Sod/ Tazobactam Sod 3.375 gm/Sodium Chloride 50 ml @ 100 mls/hr 1X ONCE IV Last administered on 10/24/19at 14:52; Start 10/24/19 at 14:30; Stop 10/24/19 at 14:59; Status DC Vancomycin HCl 250 ml @ 250 mls/hr 1X ONCE IV ; Start 10/24/19 at 14:30; Stop 10/24/19 at 15:29; Status UNV Vancomycin HCl 1.75 gm/Sodium Chloride 500 ml @ 250 mls/hr 1X ONCE IV Last administered on 10/24/19at 15:18; Start 10/24/19 at 14:30; Stop 10/24/19 at 16:29; Status DC Iohexol (Omnipaque 350 Mg/ml) 80 ml 1X ONCE IV Last administered on 10/24/19at 15:10; Start 10/24/19 at 14:30; Stop 10/24/19 at 14:31; Status DC Info (CONTRAST GIVEN -- Rx MONITORING) 1 each PRN DAILY PRN MC SEE COMMENTS; Start 10/24/19 at 14:30; Stop 10/26/19 at 14:29; Status DC Sodium Chloride 1,000 ml @ 150 mls/hr Q6H40M IV Last administered on 10/25/19at 11:57; Start 10/24/19 at 14:27; Stop 10/25/19 at 14:26; Status DC Ondansetron HCl (Zofran) 4 mg 1X ONCE IVP Last administered on 10/24/19at 15:14; Start 10/24/19 at 15:00; Stop 10/24/19 at 15:01; Status DC Fentanyl Citrate (Fentanyl 2ml Vial) 50 mcg 1X ONCE IVP Last administered on 10/24/19at 15:15; Start 10/24/19 at 15:00; Stop 10/24/19 at 15:02; Status DC Sodium Chloride (Normal Saline Flush) 3 ml QSHIFT PRN IV AFTER MEDS AND BLOOD DRAWS; Start 10/24/19 at 17:00 Ondansetron HCl (Zofran) 4 mg PRN Q4HRS PRN IV NAUSEA/VOMITING; Start 10/24/19 at 17:00 Acetaminophen (Tylenol) 650 mg PRN Q4HRS PRN PO TEMP OVER 100.4F OR MILD PAIN; Start 10/24/19 at 17:00 Sodium Monofluorophosphate (Fleet Adult) 133 ml PRN DAILY PRN [place] CONSTIPATION; Start 10/24/19 at 17:00 Docusate Sodium (Colace) 100 mg PRN BID PRN PO HARD STOOLS; Start 10/24/19 at 17:00 Albuterol Sulfate (Ventolin Neb Soln) 2.5 mg PRN Q4HRS PRN NEB SHORTNESS OF BREATH; Start 10/24/19 at 17:00 Guaifenesin (Robitussin) 200 mg PRN Q4HRS PRN PO COUGH; Start 10/24/19 at 17:00 Enoxaparin Sodium (Lovenox 40mg Syringe) 40 mg Q24H SQ Last administered on 10/26/19at 09:12; Start 10/25/19 at 09:00 Piperacillin Sod/ Tazobactam Sod 3.375 gm/Sodium Chloride 50 ml @ 100 mls/hr Q6HRS IV Last administered on 10/27/19at 05:30; Start 10/24/19 at 18:00 Sodium Chloride 500 ml @ 50 mls/hr 1X ONCE IV Last administered on 10/24/19at 19:52; Start 10/24/19 at 18:45; Stop 10/25/19 at 04:44; Status DC Sodium Chloride 150 ml @ 50 mls/hr 1X ONCE IV Last administered on 10/25/19at 12:11; Start 10/25/19 at 12:30; Stop 10/25/19 at 15:29; Status DC Loperamide HCl (Imodium) 2 mg PRN Q15MIN PRN PO DIARRHEA Last administered on 10/26/19at 18:08; Start 10/25/19 at 12:15 Magnesium Sulfate 50 ml @ 25 mls/hr 1X ONCE IV Last administered on 10/25/19at 13:37; Start 10/25/19 at 13:30; Stop 10/25/19 at 15:29; Status DC Loperamide HCl (Immodium Oral Susp) 2 mg PRN Q30MIN PRN PO DIARRHEA Last administered on 10/25/19at 20:54; Start 10/25/19 at 13:30 Levothyroxine Sodium (Synthroid) 75 mcg DAILY06 PO Last administered on 10/27/19at 05:30; Start 10/25/19 at 16:00 Sodium Chloride 1,000 ml @ 150 mls/hr Q6H40M IV Last administered on 10/27/19at 05:31; Start 10/25/19 at 21:00 Potassium Chloride (Klor-Con) 40 meq 1X ONCE PO Last administered on 10/26/19at 11:19; Start 10/26/19 at 10:30; Stop 10/26/19 at 10:31; Status DC Active Scripts Active Reported Irbesartan 300 Mg Tablet 300 Mg PO DAILY Toprol Xl (Metoprolol Succinate) 25 Mg Tab.er.24h 50 Mg PO DAILY Atorvastatin Calcium 40 Mg Tablet 1 Tab PO DAILY Amlodipine Besylate 10 Mg Tablet 10 Mg PO DAILY Vascepa (Icosapent Ethyl) 1 Gm Capsule 2 Cap PO BID 30 Days Levothyroxine Sodium 75 Mcg Tablet 1 Tab PO DAILY Vitals/I & O Vital Sign - Last 24 Hours 10/26/19 10/26/19 10/26/19 10/26/19 08:15 09:15 10:15 11:15 Temp 98.3 98.3 Pulse 98 100 98 97 Resp 18 17 18 B/P (MAP) 125/78 (94) 141/82 (101) 112/76 (88) 138/71 (93) Pulse Ox 98 100 98 100 O2 Delivery Room Air Room Air Room Air Room Air 10/26/19 10/26/19 10/26/19 10/26/19 12:07 12:12 16:00 20:00 Temp 97.5 97.5 Pulse 98 96 Resp 17 22 B/P (MAP) 137/72 (93) 141/82 (101) Pulse Ox 99 99 O2 Delivery Room Air Room Air Room Air Room Air 10/26/19 10/26/19 10/27/19 10/27/19 20:00 23:59 04:00 07:57 Temp 97.4 97.6 97.2 97.9 97.4 97.6 97.2 97.9 Pulse 80 86 108 89 Resp 20 16 16 16 B/P (MAP) 142/80 (100) 117/75 (89) 127/72 (90) 134/85 (101) Pulse Ox 100 99 99 99 O2 Delivery Room Air Room Air Room Air Room Air 10/27/19 07:57 O2 Delivery Room Air Intake and Output 10/26/19 10/26/19 10/27/19 15:00 23:00 07:00 Intake Total 760 ml 1935 ml 1719 ml Output Total 591 ml 100 ml 300 ml Balance 169 ml 1835 ml 1419 ml Hemodynamically unstable?: No Is patient in severe pain?: No Is NPO status required?: No SKYLAR HONG MD Oct 27, 2019 08:13
--- NOTE | 2019-10-27 08:55 | PDOC ---
PROGRESS NOTES Assessment Problems Medical Problems: (1) Contusion of right hand Status: Acute (2) Elevated d-dimer Status: Acute (3) Elevated liver function tests Status: Acute (4) Facial contusion Status: Acute (5) History of kidney cancer Status: Acute (6) Hyponatremia Status: Acute (7) Renal insufficiency Status: Acute (8) Severe sepsis Status: Acute (9) Syncope and collapse Status: Acute (10) Traumatic rhabdomyolysis Status: Acute Metabolic encephalopathy due to severe hyponatremia, improved Traumatic rhabdomyolysis, scalp contusion from fall, head CT negative Medical issues: hypertension coronary artery disease, right kidney renal cell carcinoma, history of alcohol abuse, lactic acidosis, mediastinal lymphadenopathy, possible pancreatitis, transaminitis, elevated d- dimer, meta bolic acidosis, small ascites, severe protein calorie malnutrition Plan Treat medical diseases Physical therapy Subjective No complaints Objective Vital Signs Date Time Temp Pulse Resp B/P (MAP) Pulse Ox O2 Delivery O2 Flow Rate FiO2 10/27/19 07:57 Room Air 10/27/19 07:57 97.9 89 16 134/85 (101) 99 97.9 Intake and Output 10/27/19 06:59 Intake Total 4414 ml Output Total 991 ml Balance 3423 ml Intake Oral 1660 ml IV Total 2754 ml Output Urine Total 990 ml Stool Total 1 ml # Voids 7 # Bowel Movements 8 PHYSICAL EXAM Alert. Oriented to time, place and person. PERRL. EOMI. CN: no focal findings. Muscle tone: normal. Muscle strength: 5/5 DTR: 2+ Plantar reflex: flexor Gait: not examined in bed. Sensory exam: no abnormal findings. No cerebellar signs elicited. Review of Relevant I have reviewed the following items ernesto (where applicable) has been applied. Labs Laboratory Tests Test 10/25/19 12:00 10/26/19 04:50 10/27/19 04:12 Sodium Level 124 mmol/L (136-145) 127 mmol/L (136-145) 130 mmol/L (136-145) Potassium Level 3.2 mmol/L (3.5-5.1) 3.3 mmol/L (3.5-5.1) 3.7 mmol/L (3.5-5.1) Chloride Level 94 mmol/L (98-107) 98 mmol/L (98-107) 101 mmol/L (98-107) Carbon Dioxide Level 20 mmol/L (21-32) 19 mmol/L (21-32) 19 mmol/L (21-32) Anion Gap 10 (6-14) 10 (6-14) 10 (6-14) Blood Urea Nitrogen 9 mg/dL (8-26) 8 mg/dL (8-26) 6 mg/dL (8-26) Creatinine 0.9 mg/dL (0.7-1.3) 0.9 mg/dL (0.7-1.3) 0.9 mg/dL (0.7-1.3) Estimated GFR (Cockcroft-Gault) 84.7 84.7 84.7 Glucose Level 85 mg/dL (70-99) 89 mg/dL (70-99) 97 mg/dL (70-99) Calcium Level 7.8 mg/dL (8.5-10.1) 7.7 mg/dL (8.5-10.1) 7.8 mg/dL (8.5-10.1) Magnesium Level 2.3 mg/dL (1.8-2.4) Total Bilirubin 3.5 mg/dL (0.2-1.0) Direct Bilirubin 2.7 mg/dL (0.0-0.2) Aspartate Amino Transf (AST/SGOT) 221 U/L (15-37) Alanine Aminotransferase (ALT/SGPT) 107 U/L (16-63) Alkaline Phosphatase 437 U/L (46-116) Total Protein 5.6 g/dL (6.4-8.2) Albumin 2.1 g/dL (3.4-5.0) Lipase 75 U/L (73-393) Laboratory Tests Test 10/27/19 04:12 Sodium Level 130 mmol/L (136-145) Potassium Level 3.7 mmol/L (3.5-5.1) Chloride Level 101 mmol/L (98-107) Carbon Dioxide Level 19 mmol/L (21-32) Anion Gap 10 (6-14) Blood Urea Nitrogen 6 mg/dL (8-26) Creatinine 0.9 mg/dL (0.7-1.3) Estimated GFR (Cockcroft-Gault) 84.7 Glucose Level 97 mg/dL (70-99) Calcium Level 7.8 mg/dL (8.5-10.1) Microbiology 10/24/19 Blood Culture - Preliminary, Resulted NO GROWTH AFTER 2 DAYS Medications Current Medications Diphtheria/ Tetanus/Acell Pertussis (ADACEL TDap SYRINGE) 0.5 ml ONCE ONCE VAX IM Last administered on 10/24/19at 14:13; Start 10/24/19 at 14:00; Stop 10/24/19 at 14:02; Status DC Sodium Chloride 1,000 ml @ 1,000 mls/hr 1X ONCE IV Last administered on 10/24/19at 14:12; Start 10/24/19 at 14:00; Stop 10/24/19 at 14:59; Status DC Sodium Chloride 1,000 ml @ 1,000 mls/hr 1X ONCE IV Last administered on 10/24/19at 14:52; Start 10/24/19 at 14:15; Stop 10/24/19 at 15:14; Status DC Piperacillin Sod/ Tazobactam Sod 3.375 gm/Sodium Chloride 50 ml @ 100 mls/hr 1X ONCE IV Last administered on 10/24/19at 14:52; Start 10/24/19 at 14:30; Stop 10/24/19 at 14:59; Status DC Vancomycin HCl 250 ml @ 250 mls/hr 1X ONCE IV ; Start 10/24/19 at 14:30; Stop 10/24/19 at 15:29; Status UNV Vancomycin HCl 1.75 gm/Sodium Chloride 500 ml @ 250 mls/hr 1X ONCE IV Last administered on 10/24/19at 15:18; Start 10/24/19 at 14:30; Stop 10/24/19 at 16:29; Status DC Iohexol (Omnipaque 350 Mg/ml) 80 ml 1X ONCE IV Last administered on 10/24/19at 15:10; Start 10/24/19 at 14:30; Stop 10/24/19 at 14:31; Status DC Info (CONTRAST GIVEN -- Rx MONITORING) 1 each PRN DAILY PRN MC SEE COMMENTS; Start 10/24/19 at 14:30; Stop 10/26/19 at 14:29; Status DC Sodium Chloride 1,000 ml @ 150 mls/hr Q6H40M IV Last administered on 10/25/19at 11:57; Start 10/24/19 at 14:27; Stop 10/25/19 at 14:26; Status DC Ondansetron HCl (Zofran) 4 mg 1X ONCE IVP Last administered on 10/24/19at 15:14; Start 10/24/19 at 15:00; Stop 10/24/19 at 15:01; Status DC Fentanyl Citrate (Fentanyl 2ml Vial) 50 mcg 1X ONCE IVP Last administered on 10/24/19at 15:15; Start 10/24/19 at 15:00; Stop 10/24/19 at 15:02; Status DC Sodium Chloride (Normal Saline Flush) 3 ml QSHIFT PRN IV AFTER MEDS AND BLOOD D RAWS; Start 10/24/19 at 17:00 Ondansetron HCl (Zofran) 4 mg PRN Q4HRS PRN IV NAUSEA/VOMITING; Start 10/24/19 at 17:00 Acetaminophen (Tylenol) 650 mg PRN Q4HRS PRN PO TEMP OVER 100.4F OR MILD PAIN; Start 10/24/19 at 17:00 Sodium Monofluorophosphate (Fleet Adult) 133 ml PRN DAILY PRN [place] CONSTIPATION; Start 10/24/19 at 17:00 Docusate Sodium (Colace) 100 mg PRN BID PRN PO HARD STOOLS; Start 10/24/19 at 17:00 Albuterol Sulfate (Ventolin Neb Soln) 2.5 mg PRN Q4HRS PRN NEB SHORTNESS OF BREATH; Start 10/24/19 at 17:00 Guaifenesin (Robitussin) 200 mg PRN Q4HRS PRN PO COUGH; Start 10/24/19 at 17:00 Enoxaparin Sodium (Lovenox 40mg Syringe) 40 mg Q24H SQ Last administered on 10/26/19at 09:12; Start 10/25/19 at 09:00 Piperacillin Sod/ Tazobactam Sod 3.375 gm/Sodium Chloride 50 ml @ 100 mls/hr Q6HRS IV Last administered on 10/27/19at 05:30; Start 10/24/19 at 18:00 Sodium Chloride 500 ml @ 50 mls/hr 1X ONCE IV Last administered on 10/24/19at 19:52; Start 10/24/19 at 18:45; Stop 10/25/19 at 04:44; Status DC Sodium Chloride 150 ml @ 50 mls/hr 1X ONCE IV Last administered on 10/25/19at 12:11; Start 10/25/19 at 12:30; Stop 10/25/19 at 15:29; Status DC Loperamide HCl (Imodium) 2 mg PRN Q15MIN PRN PO DIARRHEA Last administered on 10/26/19at 18:08; Start 10/25/19 at 12:15 Magnesium Sulfate 50 ml @ 25 mls/hr 1X ONCE IV Last administered on 10/25/19at 13:37; Start 10/25/19 at 13:30; Stop 10/25/19 at 15:29; Status DC Loperamide HCl (Immodium Oral Susp) 2 mg PRN Q30MIN PRN PO DIARRHEA Last administered on 10/25/19at 20:54; Start 10/25/19 at 13:30 Levothyroxine Sodium (Synthroid) 75 mcg DAILY06 PO Last administered on 10/27/19at 05:30; Start 10/25/19 at 16:00 Sodium Chloride 1,000 ml @ 150 mls/hr Q6H40M IV Last administered on 10/27/19at 05:31; Start 10/25/19 at 21:00 Potassium Chloride (Klor-Con) 40 meq 1X ONCE PO Last administered on 10/26/19at 11:19; Start 10/26/19 at 10:30; Stop 10/26/19 at 10:31; Status DC Active Scripts Active Reported Irbesartan 300 Mg Tablet 300 Mg PO DAILY Toprol Xl (Metoprolol Succinate) 25 Mg Tab.er.24h 50 Mg PO DAILY Atorvastatin Calcium 40 Mg Tablet 1 Tab PO DAILY Amlodipine Besylate 10 Mg Tablet 10 Mg PO DAILY Vascepa (Icosapent Ethyl) 1 Gm Capsule 2 Cap PO BID 30 Days Levothyroxine Sodium 75 Mcg Tablet 1 Tab PO DAILY Vitals/I & O Vital Sign - Last 24 Hours 10/26/19 10/26/19 10/26/19 10/26/19 09:15 10:15 11:15 12:07 Temp 98.3 98.3 Pulse 100 98 97 Resp 20 17 18 B/P (MAP) 141/82 (101) 112/76 (88) 138/71 (93) Pulse Ox 100 98 100 O2 Delivery Room Air Room Air Room Air Room Air 10/26/19 10/26/19 10/26/19 10/26/19 12:12 16:00 20:00 20:00 Temp 97.5 97.4 97.5 97.4 Pulse 98 96 80 Resp 17 22 20 B/P (MAP) 137/72 (93) 141/82 (101) 142/80 (100) Pulse Ox 99 99 100 O2 Delivery Room Air Room Air Room Air Room Air 10/26/19 10/27/19 10/27/19 10/27/19 23:59 04:00 07:57 07:57 Temp 97.6 97.2 97.9 97.6 97.2 97.9 Pulse 86 108 89 Resp 16 16 16 B/P (MAP) 117/75 (89) 127/72 (90) 134/85 (101) Pulse Ox 99 99 99 O2 Delivery Room Air Room Air Room Air Room Air Intake and Output 10/26/19 10/26/19 10/27/19 14:59 22:59 06:59 Intake Total 760 ml 1935 ml 1719 ml Output Total 591 ml 100 ml 300 ml Balance 169 ml 1835 ml 1419 ml Images Carotid Doppler sonogram. HISTORY: Syncope. Carotid atherosclerosis. TECHNIQUE: Elizondo scale and color Doppler sonographic evaluation of the neck with spectral waveform analysis was performed and static images are submitted for review. FINDINGS: There is mild atherosclerotic plaque within the carotid bifurcations. The peak systolic velocity within the right common carotid artery is 117 cm/sec. The peak systolic velocity within the right internal carotid artery is 106 cm/sec and the end diastolic velocity within the right internal carotid artery is 28 cm/sec. The right ICA/CCA ratio is 1.0. The peak systolic velocity within the left common carotid artery is 122 cm/sec. The peak systolic velocity within the left internal carotid artery is 104 cm/sec and the end diastolic velocity within the left internal carotid artery is 30 cm/sec. The left ICA/CCA ratio is 1.2. There is normal antegrade flow within both vertebral arteries. IMPRESSION: No Doppler evidence of hemodynamically significant stenosis within the internal carotid arteries or vertebral arteries. TI MORENO MD Oct 27, 2019 08:55
[2019-10-27] MEDS: ENOXAPARIN 40 MG/0.4 ML SYRINGE. SQ SCH (09:12)
--- NOTE | 2019-10-27 09:37 | PDOC ---
Subjective: Subjective: Ate all of breakfast, denies abd pain, diarrhea is better. Objective: Objective: Unclear if stool specimens collected. D/w nurse - thinking more clearly today, tolerating diet. Frequent smears of watery stool in brief. Yesterday, nurse called to ask about "pancreatic mass." Reviewed CT report at that time - "fullness of the head of the pancreas, increased density is seen within the fat surrounding the pancreas and d uodenum...these findings likely reflect acute pancreatitis...no pancreatic pseudocyst is seen, suspected pancreatic phlegmon extends laterally to the right anterior to the right kidney." Note CA19-9 results today - 2204. Vital Signs: Vital Signs Date Time Temp Pulse Resp B/P (MAP) Pulse Ox O2 Delivery O2 Flow Rate FiO2 10/27/19 07:57 Room Air 10/27/19 07:57 97.9 89 16 134/85 (101) 99 97.9 Labs: Laboratory Tests Test 10/27/19 04:12 Sodium Level 130 mmol/L Potassium Level 3.7 mmol/L Chloride Level 101 mmol/L Carbon Dioxide Level 19 mmol/L Anion Gap 10 Blood Urea Nitrogen 6 mg/dL Creatinine 0.9 mg/dL Estimated GFR (Cockcroft-Gault) 84.7 Glucose Level 97 mg/dL Calcium Level 7.8 mg/dL URINE CULTURE RES 1 Final No growth Imaging: Carotid Doppler 10/25 IMPRESSION: No Doppler evidence of hemodynamically significant stenosis within the internal carotid arteries or vertebral arteries. PE: GEN: NAD LUNGS: CTAB HEART: tachycardic ABD: round, soft, non-tender NEURO/PSYCH: appropriate A/P: Hyponatremia - better Abnormal LFTs, elevated CA19-[address] - mediastinal lymphadenopathy, fullness of the head of the pancreas is seen w/ increased density within the fat surrounding the pancreas and duodenum, fatty liver, contracted GB H/o alcohol overuse and diarrhea H/o RCC/recurrence -- D/w nurse - check stool studies. Continue full liquids. As reviewed yesterday - has had CT, abd MRI, and liver biopsy @ [facility] - no abnormal pancreas findings on records reviewed. Will review further recs re: elevated CA19-9 w/ Dr. Hernandez. Hemodynamically unstable?: No Is patient in severe pain?: No Is NPO status required?: No IRVIN MCKNIGHT Oct 27, 2019 09:37
[2019-10-27 10:06] LABS: ALBUMIN 2.2 g/dL (3.4-5.0); DIRECT BILIRUBIN 1.8 mg/dL (0.0-0.2); TOTAL BILIRUBIN 2.7 mg/dL (0.2-1.0); TOTAL PROTEIN 5.3 g/dL (6.4-8.2)
[2019-10-27 11:36] VITALS: BP 140/88
--- NOTE | 2019-10-27 12:00 | NUR ---
stool sent to lab for cdiff, culture and occult. pt continent of urine and stool today. wearing depends. pt tolerating full liquid diet. denies pain. Pt states "I am a little stiff, but not painful".
--- NOTE | 2019-10-27 12:19 | PDOC ---
Renal-Progress Notes Subjective Notes Notes NO NEW COMPLAINTS History of Present Illness Hx of present illness SOME DIARRHEA Vitals Vitals Vital Signs Date Time Temp Pulse Resp B/P (MAP) Pulse Ox O2 Delivery O2 Flow Rate FiO2 10/27/19 11:36 97.8 89 18 140/88 (105) 98 Room Air 97.8 Weight Weight [ ] I.O. Intake and Output Intake and Output 10/27/19 07:00 Intake Total 4414 ml Output Total 991 ml Balance 3423 ml Intake Oral 1660 ml IV Total 2754 ml Output Urine Total 990 ml Stool Total 1 ml # Voids 7 # Bowel Movements 8 Labs Labs Laboratory Tests Test 10/27/19 04:12 Sodium Level 130 mmol/L (136-145) Potassium Level 3.7 mmol/L (3.5-5.1) Chloride Level 101 mmol/L (98-107) Carbon Dioxide Level 19 mmol/L (21-32) Anion Gap 10 (6-14) Blood Urea Nitrogen 6 mg/dL (8-26) Creatinine 0.9 mg/dL (0.7-1.3) Estimated GFR (Cockcroft-Gault) 84.7 Glucose Level 97 mg/dL (70-99) Calcium Level 7.8 mg/dL (8.5-10.1) Total Bilirubin 2.7 mg/dL (0.2-1.0) Direct Bilirubin 1.8 mg/dL (0.0-0.2) Aspartate Amino Transf (AST/SGOT) 180 U/L (15-37) Alanine Aminotransferase (ALT/SGPT) 96 U/L (16-63) Alkaline Phosphatase 397 U/L (46-116) Total Protein 5.3 g/dL (6.4-8.2) Albumin 2.2 g/dL (3.4-5.0) Micro Micro Microbiology 10/25/19 Urine Culture - Final, Complete 10/25/19 Urine Culture Result 1 (KYRA) - Final, Complete 10/24/19 Blood Culture - Preliminary, Resulted NO GROWTH AFTER 2 DAYS Review of Systems Constitutional: yes: weakness, alert Ears/Nose/Throat: Yes: no symptom reported Eyes: Yes: no symptom reported Pulmonary: Yes no symptom reported Cardiovascular: Yes no symptom reported Gastrointestional: Yes: other (DISTENTION) Skin: Yes no symptom reported Psychiatric/Neurological: Yes: no symptom reported Physical Exam General Appearance: no apparent distress Respiratory: decreased breath sounds Heart: S1S2 Abdomen: soft, bowel sounds present Genitourinary: bladder flat Extremities: pulses present Neurology: alert Musculoskeletal: Osteoarthritis Assessment Assessment IMP MET ENCEPHALOPATHY SEVERE [id number] SIADH ? PANCREATIC CYST VS MASS ? HX OF RIGHT RCCA LOW MAG-CORRECTED LIVER FAILURE ?ETOH ABUSE PLAN 3% SALINE NEEDED ONGOING WORK UP AMALIA ALICIA MD Oct 27, 2019 12:19
[2019-10-27 12:24] LABS: FECAL OB PT NEGATIVE (NEG)
[2019-10-27 15:30] VITALS: BP 136/80
--- NOTE | 2019-10-27 15:43 | NUR ---
SS following up with discharge planning. SS reviewed pt chart. Pt transferred to room 410. Pt is from home and is currently on room air. PT/OT recommending home with outpatient. Kristi SCHAFFER notified.
[2019-10-27 19:00] VITALS: BP 134/82
[2019-10-27 23:00] VITALS: BP 129/79
[2019-10-28 03:00] VITALS: BP 136/86
[2019-10-28 04:31] LABS: CALCIUM 7.8 mg/dL (8.5-10.1); CREATININE 0.8 mg/dL (0.7-1.3); POTASSIUM 3.6 mmol/L (3.5-5.1)
[2019-10-28] MEDS: LEVOTHYROXINE 75 MCG TABLET PO SCH (04:50)
[2019-10-28] MEDS: IV NORMAL SALINE 1000ML BAG 1,000 ML IV SCH (04:50)
[2019-10-28 07:00] VITALS: BP 134/85
--- NOTE | 2019-10-28 09:20 | PDOC ---
PROGRESS NOTES Assessment Problems Medical Problems: (1) Contusion of right hand Status: Acute (2) Elevated d-dimer Status: Acute (3) Elevated liver function tests Status: Acute (4) Facial contusion Status: Acute (5) History of kidney cancer Status: Acute (6) Hyponatremia Status: Acute (7) Renal insufficiency Status: Acute (8) Severe sepsis Status: Acute (9) Syncope and collapse Status: Acute (10) Traumatic rhabdomyolysis Status: Acute Metabolic encephalopathy due to severe hyponatremia, improved. Sodium 135 today Traumatic rhabdomyolysis, scalp contusion from fall, head CT negative Medical issues: hypertension coronary artery disease, right kidney renal cell carcinoma, history of alcohol abuse, lactic acidosis, mediastinal lymphadenopathy, possible pancreatitis, transaminitis, elevated d- dimer, metabolic acidosis, small ascites, severe protein calorie malnutrition Plan Okay for discharge Treat medical diseases Physical therapy Subjective No complaints, wants to go home Objective Vital Signs Date Time Temp Pulse Resp B/P (MAP) Pulse Ox O2 Delivery O2 Flow Rate FiO2 10/28/19 07:00 98.5 102 20 134/85 (101) 97 Room Air 98.5 Intake and Output 10/28/19 06:59 Intake Total 2950 ml Balance 2950 ml Intake Oral 900 ml IV Total 2050 ml # Voids 2 # Bowel Movements 1 PHYSICAL EXAM Alert. Oriented to time, place and person. PERRL. EOMI. CN: no focal findings. Muscle tone: normal. Muscle strength: 5/5 DTR: 2+ Plantar reflex: flexor Gait: not examined in bed. Sensory exam: no abnormal findings. No cerebellar signs elicited. Review of Relevant I have reviewed the following items ernesto (where applicable) has been applied. Labs Laboratory Tests Test 10/27/19 04:12 10/27/19 11:15 10/28/19 03:20 Sodium Level 130 mmol/L (136-145) 136 mmol/L (136-145) Potassium Level 3.7 mmol/L (3.5-5.1) 3.6 mmol/L (3.5-5.1) Chloride Level 101 mmol/L (98-107) 104 mmol/L (98-107) Carbon Dioxide Level 19 mmol/L (21-32) 21 mmol/L (21-32) Anion Gap 10 (6-14) 11 (6-14) Blood Urea Nitrogen 6 mg/dL (8-26) 5 mg/dL (8-26) Creatinine 0.9 mg/dL (0.7-1.3) 0.8 mg/dL (0.7-1.3) Estimated GFR (Cockcroft-Gault) 84.7 97.0 Glucose Level 97 mg/dL (70-99) 87 mg/dL (70-99) Calcium Level 7.8 mg/dL (8.5-10.1) 7.8 mg/dL (8.5-10.1) Total Bilirubin 2.7 mg/dL (0.2-1.0) Direct Bilirubin 1.8 mg/dL (0.0-0.2) Aspartate Amino Transf (AST/SGOT) 180 U/L (15-37) Alanine Aminotransferase (ALT/SGPT) 96 U/L (16-63) Alkaline Phosphatase 397 U/L (46-116) Total Protein 5.3 g/dL (6.4-8.2) Albumin 2.2 g/dL (3.4-5.0) Stool Occult Blood Negative (NEG) Laboratory Tests Test 10/27/19 11:15 10/28/19 03:20 Stool Occult Blood Negative (NEG) Sodium Level 136 mmol/L (136-145) Potassium Level 3.6 mmol/L (3.5-5.1) Chloride Level 104 mmol/L (98-107) Carbon Dioxide Level 21 mmol/L (21-32) Anion Gap 11 (6-14) Blood Urea Nitrogen 5 mg/dL (8-26) Creatinine 0.8 mg/dL (0.7-1.3) Estimated GFR (Cockcroft-Gault) 97.0 Glucose Level 87 mg/dL (70-99) Calcium Level 7.8 mg/dL (8.5-10.1) Microbiology 10/25/19 Urine Culture - Final, Complete 10/25/19 Urine Culture Result 1 (KYRA) - Final, Complete 10/24/19 Blood Culture - Preliminary, Resulted NO GROWTH AFTER 3 DAYS Medications Current Medications Diphtheria/ Tetanus/Acell Pertussis (ADACEL TDap SYRINGE) 0.5 ml ONCE ONCE VAX IM Last administered on 10/24/19at 14:13; Start 10/24/19 at 14:00; Stop 10/24/19 at 14:02; Status DC Sodium Chloride 1,000 ml @ 1,000 mls/hr 1X ONCE IV Last administered on 10/24/19at 14:12; Start 10/24/19 at 14:00; Stop 10/24/19 at 14:59; Status DC Sodium Chloride 1,000 ml @ 1,000 mls/hr 1X ONCE IV Last administered on 10/24/19at 14:52; Start 10/24/19 at 14:15; Stop 10/24/19 at 15:14; Status DC Piperacillin Sod/ Tazobactam Sod 3.375 gm/Sodium Chloride 50 ml @ 100 mls/hr 1X ONCE IV Last administered on 10/24/19at 14:52; Start 10/24/19 at 14:30; Stop 10/24/19 at 14:59; Status DC Vancomycin HCl 250 ml @ 250 mls/hr 1X ONCE IV ; Start 10/24/19 at 14:30; Stop 10/24/19 at 15:29; Status UNV Vancomycin HCl 1.75 gm/Sodium Chloride 500 ml @ 250 mls/hr 1X ONCE IV Last administered on 10/24/19at 15:18; Start 10/24/19 at 14:30; Stop 10/24/19 at 16:29; Status DC Iohexol (Omnipaque 350 Mg/ml) 80 ml 1X ONCE IV Last administered on 10/24/19at 15:10; Start 10/24/19 at 14:30; Stop 10/24/19 at 14:31; Status DC Info (CONTRAST GIVEN -- Rx MONITORING) 1 each PRN DAILY PRN MC SEE COMMENTS; Start 10/24/19 at 14:30; Stop 10/26/19 at 14:29; Status DC Sodium Chloride 1,000 ml @ 150 mls/hr Q6H40M IV Last administered on 10/25/19at 11:57; Start 10/24/19 at 14:27; Stop 10/25/19 at 14:26; Status DC Ondansetron HCl (Zofran) 4 mg 1X ONCE IVP Last administered on 10/24/19at 15:14; Start 10/24/19 at 15:00; Stop 10/24/19 at 15:01; Status DC Fentanyl Citrate (Fentanyl 2ml Vial) 50 mcg 1X ONCE IVP Last administered on 10/24/19at 15:15; Start 10/24/19 at 15:00; Stop 10/24/19 at 15:02; Status DC Sodium Chloride (Normal Saline Flush) 3 ml QSHIFT PRN IV AFTER MEDS AND BLOOD DRAWS; Start 10/24/19 at 17:00 Ondansetron HCl (Zofran) 4 mg PRN Q4HRS PRN IV NAUSEA/VOMITING; Start 10/24/19 at 17:00 Acetaminophen (Tylenol) 650 mg PRN Q4HRS PRN PO TEMP OVER 100.4F OR MILD PAIN; Start 10/24/19 at 17:00 Sodium Monofluorophosphate (Fleet Adult) 133 ml PRN DAILY PRN [place] CONSTIPATION; Start 10/24/19 at 17:00 Docusate Sodium (Colace) 100 mg PRN BID PRN PO HARD STOOLS; Start 10/24/19 at 17:00 Albuterol Sulfate (Ventolin Neb Soln) 2.5 mg PRN Q4HRS PRN NEB SHORTNESS OF BREATH; Start 10/24/19 at 17:00 Guaifenesin (Robitussin) 200 mg PRN Q4HRS PRN PO COUGH; Start 10/24/19 at 17:00 Enoxaparin Sodium (Lovenox 40mg Syringe) 40 mg Q24H SQ Last administered on 10/27/19at 09:12; Start 10/25/19 at 09:00 Piperacillin Sod/ Tazobactam Sod 3.375 gm/Sodium Chloride 50 ml @ 100 mls/hr Q6HRS IV Last administered on 10/27/19at 11:34; Start 10/24/19 at 18:00; Stop 10/27/19 at 15:00; Status DC Sodium Chloride 500 ml @ 50 mls/hr 1X ONCE IV Last administered on 10/24/19at 19:52; Start 10/24/19 at 18:45; Stop 10/25/19 at 04:44; Status DC Sodium Chloride 150 ml @ 50 mls/hr 1X ONCE IV Last administered on 10/25/19at 12:11; Start 10/25/19 at 12:30; Stop 10/25/19 at 15:29; Status DC Loperamide HCl (Imodium) 2 mg PRN Q15MIN PRN PO DIARRHEA Last administered on 10/26/19at 18:08; Start 10/25/19 at 12:15 Magnesium Sulfate 50 ml @ 25 mls/hr 1X ONCE IV Last administered on 10/25/19at 13:37; Start 10/25/19 at 13:30; Stop 10/25/19 at 15:29; Status DC Loperamide HCl (Immodium Oral Susp) 2 mg PRN Q30MIN PRN PO DIARRHEA Last administered on 10/25/19at 20:54; Start 10/25/19 at 13:30 Levothyroxine Sodium (Synthroid) 75 mcg DAILY06 PO Last administered on 10/28/19at 04:50; Start 10/25/19 at 16:00 Sodium Chloride 1,000 ml @ 150 mls/hr Q6H40M IV Last administered on 10/28/19at 04:50; Start 10/25/19 at 21:00 Potassium Chloride (Klor-Con) 40 meq 1X ONCE PO Last administered on 10/26/19at 11:19; Start 10/26/19 at 10:30; Stop 10/26/19 at 10:31; Status DC Active Scripts Active Reported Irbesartan 300 Mg Tablet 300 Mg PO DAILY Toprol Xl (Metoprolol Succinate) 25 Mg Tab.er.24h 50 Mg PO DAILY Atorvastatin Calcium 40 Mg Tablet 1 Tab PO DAILY Amlodipine Besylate 10 Mg Tablet 10 Mg PO DAILY Vascepa (Icosapent Ethyl) 1 Gm Capsule 2 Cap PO BID 30 Days Levothyroxine Sodium 75 Mcg Tablet 1 Tab PO DAILY Vitals/I & O Vital Sign - Last 24 Hours 10/27/19 10/27/19 10/27/19 10/27/19 11:36 15:30 19:00 20:03 Temp 97.8 97.8 97.9 97.8 97.8 97.9 Pulse 89 87 82 Resp 18 18 20 B/P (MAP) 140/88 (105) 136/80 (98) 134/82 (99) Pulse Ox 98 97 98 O2 Delivery Room Air Room Air Room Air Room Air 10/27/19 10/28/19 10/28/19 23:00 03:00 07:00 Temp 97.3 97.5 98.5 97.3 97.5 98.5 Pulse 95 96 102 Resp 20 20 20 B/P (MAP) 129/79 (96) 136/86 (103) 134/85 (101) Pulse Ox 96 98 97 O2 Delivery Room Air Room Air Room Air Intake and Output 10/27/19 10/27/19 10/28/19 14:59 22:59 06:59 Intake Total 50 ml 1400 ml 1500 ml Balance 50 ml 1400 ml 1500 ml TI MORENO MD Oct 28, 2019 09:20
[2019-10-28] MEDS: ENOXAPARIN 40 MG/0.4 ML SYRINGE. SQ SCH (09:25)
--- NOTE | 2019-10-28 10:13 | PDOC ---
Subjective: Subjective: Thinks diarrhea is better. Doing okay w/ full liquids, doesn't want to advance. No abdominal pain. Objective: Objective: 8 stools charted yesterday. Vital Signs: Vital Signs Date Time Temp Pulse Resp B/P (MAP) Pulse Ox O2 Delivery O2 Flow Rate FiO2 10/28/19 07:00 98.5 102 20 134/85 (101) 97 Room Air 98.5 Labs: Laboratory Tests Test 10/27/19 11:15 10/28/19 03:20 Stool Occult Blood Negative Sodium Level 136 mmol/L Potassium Level 3.6 mmol/L Chloride Level 104 mmol/L Carbon Dioxide Level 21 mmol/L Anion Gap 11 Blood Urea Nitrogen 5 mg/dL Creatinine 0.8 mg/dL Estimated GFR (Cockcroft-Gault) 97.0 Glucose Level 87 mg/dL Calcium Level 7.8 mg/dL PE: GEN: NAD LUNGS: CTAB HEART: borderline tachycardic ABD: NABS, S/ND/NT NEURO/PSYCH: A & O 3 A/P: Hyponatremia - resolved Diarrhea - chronic Abnormal LFTs, elevated CA19-9, abnormal pancreas imaging, h/o RCC H/o alcohol overuse -- Refer to [facility] for outpt workup re: CA19-9 w/ newly abnormal pancreas imaging and lymphadenopathy w/ h/ recurrent RCC. Stool studies collected yesterday - pending. Has Imodium - hasn't taken since 10/25 - d/w nurse. Hemodynamically unstable?: No Is patient in severe pain?: No Is NPO status required?: No IRVIN MCKNIGHT Oct 28, 2019 10:13
[2019-10-28 11:00] VITALS: BP 123/78
--- NOTE | 2019-10-28 11:23 | PDOC ---
Renal-Progress Notes Subjective Notes Notes NO NEW COMPLAINTS History of Present Illness Hx of present illness STABLE Vitals Vitals Vital Signs Date Time Temp Pulse Resp B/P (MAP) Pulse Ox O2 Delivery O2 Flow Rate FiO2 10/28/19 07:00 98.5 102 20 134/85 (101) 97 Room Air 98.5 Weight Weight [ ] I.O. Intake and Output Intake and Output 10/28/19 07:00 Intake Total 2950 ml Balance 2950 ml Intake Oral 900 ml IV Total 2050 ml # Voids 2 # Bowel Movements 1 Labs Labs Laboratory Tests Test 10/28/19 03:20 Sodium Level 136 mmol/L (136-145) Potassium Level 3.6 mmol/L (3.5-5.1) Chloride Level 104 mmol/L (98-107) Carbon Dioxide Level 21 mmol/L (21-32) Anion Gap 11 (6-14) Blood Urea Nitrogen 5 mg/dL (8-26) Creatinine 0.8 mg/dL (0.7-1.3) Estimated GFR (Cockcroft-Gault) 97.0 Glucose Level 87 mg/dL (70-99) Calcium Level 7.8 mg/dL (8.5-10.1) Micro Micro Microbiology 10/25/19 Urine Culture - Final, Complete 10/25/19 Urine Culture Result 1 (KYRA) - Final, Complete 10/24/19 Blood Culture - Preliminary, Resulted NO GROWTH AFTER 3 DAYS Review of Systems Constitutional: yes: weakness, alert Ears/Nose/Throat: Yes: no symptom reported Eyes: Yes: no symptom reported Pulmonary: Yes no symptom reported Cardiovascular: Yes no symptom reported Gastrointestional: Yes: other (DISTENTION) Skin: Yes no symptom reported Psychiatric/Neurological: Yes: no symptom reported Physical Exam General Appearance: no apparent distress Respiratory: decreased breath sounds Heart: S1S2 Abdomen: soft, bowel sounds present Genitourinary: bladder flat Extremities: pulses present Neurology: alert Musculoskeletal: Osteoarthritis Assessment Assessment IMP SEVERE HYPONATREMIA-RESOLVED PLAN WILL SIGN OFF AMALIA ALICIA MD Oct 28, 2019 11:23
[2019-10-28] MEDS ORDERED: METO25TA2 PO (11:39)
[2019-10-28] MEDS ORDERED: IRBE300T23 PO (11:39)
--- NOTE | 2019-10-28 11:42 | PDOC3 ---
Discharge Summary Visit Information Date of Admission: Oct 24, 2019 Date of Discharge: Oct 28, 2019 Final Diagnosis metabolic encephalopathy on admit, Hyponatremia 114 on admit 136 on dc History of right renal mass Lactic acidosis 3.1 cm enlarged mediastinal lymph node concerning for a neoplastic process or metastatic lymphadenopathy. by CT Pancreatitis - alcohol induced transaminitis Elevated d- dimer Anion gap metabolic acidosis Small ascites Severe protein calorie malnutrition Hypokalemia obese, BMI 34 Problems Medical Problems: (1) Contusion of right hand Status: Acute (2) Elevated d-dimer Status: Acute (3) Elevated liver function tests Status: Acute (4) Facial contusion Status: Acute (5) History of kidney cancer Status: Acute (6) Hyponatremia Status: Acute (7) Renal insufficiency Status: Acute (8) Severe sepsis Status: Acute (9) Syncope and collapse Status: Acute (10) Traumatic rhabdomyolysis Status: Acute Brief Hospital Course Allergies Allergies Coded Allergies Type Severity Reaction Last Updated Verified No Known Drug Allergies 10/24/19 No Vital Signs Vital Signs Date Time Temp Pulse Resp B/P (MAP) Pulse Ox O2 Delivery O2 Flow Rate FiO2 10/28/19 07:00 98.5 102 20 134/85 (101) 97 Room Air 98.5 Lab Results Laboratory Tests Test 10/27/19 04:12 10/27/19 11:15 10/28/19 03:20 Sodium Level 130 mmol/L (136-145) 136 mmol/L (136-145) Potassium Level 3.7 mmol/L (3.5-5.1) 3.6 mmol/L (3.5-5.1) Chloride Level 101 mmol/L (98-107) 104 mmol/L (98-107) Carbon Dioxide Level 19 mmol/L (21-32) 21 mmol/L (21-32) Anion Gap 10 (6-14) 11 (6-14) Blood Urea Nitrogen 6 mg/dL (8-26) 5 mg/dL (8-26) Creatinine 0.9 mg/dL (0.7-1.3) 0.8 mg/dL (0.7-1.3) Estimated GFR (Cockcroft-Gault) 84.7 97.0 Glucose Level 97 mg/dL (70-99) 87 mg/dL (70-99) Calcium Level 7.8 mg/dL (8.5-10.1) 7.8 mg/dL (8.5-10.1) Total Bilirubin 2.7 mg/dL (0.2-1.0) Direct Bilirubin 1.8 mg/dL (0.0-0.2) Aspartate Amino Transf (AST/SGOT) 180 U/L (15-37) Alanine Aminotransferase (ALT/SGPT) 96 U/L (16-63) Alkaline Phosphatase 397 U/L (46-116) Total Protein 5.3 g/dL (6.4-8.2) Albumin 2.2 g/dL (3.4-5.0) Stool Occult Blood Negative (NEG) Clostridium difficile Toxin B Gene Negative (Negative) Laboratory Tests Test 10/28/19 03:20 Sodium Level 136 mmol/L (136-145) Potassium Level 3.6 mmol/L (3.5-5.1) Chloride Level 104 mmol/L (98-107) Carbon Dioxide Level 21 mmol/L (21-32) Anion Gap 11 (6-14) Blood Urea Nitrogen 5 mg/dL (8-26) Creatinine 0.8 mg/dL (0.7-1.3) Estimated GFR (Cockcroft-Gault) 97.0 Glucose Level 87 mg/dL (70-99) Calcium Level 7.8 mg/dL (8.5-10.1) Brief Hospital Course Mr. Anderson is a 64 old male with history of hypertension, coronary artery disease, right kidney mass, heavy ETOH use who presents via EMS with complaining of syncope at work. Found with Na 114, bilirubin 3.8. Found on CT abdomen/pelvis with increased lucency of pancreatic head with concern for pancreatitis and 3.1 cm enlarged mediastinal lymph node concerning for a neoplastic process or metastatic lymphadenopathy. Seen by GI neurology and nephrology 10/24: Diarrhea noted 10/25: Na 127 today. K 3.3. Bilirubin 2.7, improved.No CP. Some nausea. Still with loose stools. Counseled on ETOH cessation, notes his last drink was saturday and he has 2-6 drinks per day. Na 130. CA 19-9 2247. He is ambulating better. Feeling overall better. No shortness of breath or chest pain. D/w son, Sarkis the need for outpatient f/u for pancreatic lucency/mass and elevated CA 19-9, wishes to f/u at [facility] where he recently had a liver biopsy. Discharge Information Condition at Discharge: Improved Follow Up: Weeks Disposition/Orders: D/C to Home Scheduled Amlodipine Besylate (Amlodipine Besylate) 10 Mg Tablet, 10 MG PO DAILY for htn, (Reported) Entered as Reported by: AMANDA AGUILA on 10/24/191702 Last Taken: UNKNOWN on Unknown Date & Time Last Action: New Order on 10/24/191702 by AMANDA AGUILA Atorvastatin Calcium (Atorvastatin Calcium) 40 Mg Tablet, 1 TAB PO DAILY for hl d, #30 Ref 5 (Reported) Entered as Reported by: AMANDA AGUILA on 10/24/191702 Last Taken: UNKNOWN on Unknown Date & Time Last Action: New Order on 10/24/191702 by AMANDA AGUILA Icosapent Ethyl (Vascepa) 1 Gm Capsule, 2 CAP PO BID for . for 30 Days, #120 Ref 0 (Reported) Entered as Reported by: AMANDA AGUILA on 10/24/191702 Last Taken: UNKNOWN on Unknown Date & Time Last Action: New Order on 10/24/191702 by AMANDA AGUILA Irbesartan (Irbesartan) 300 Mg Tablet, 150 MG PO DAILY for hypetension in CAD, #30 Ref 0 Prescribed by: CARLOS MOYA on 10/28/19 1139 Levothyroxine Sodium (Levothyroxine Sodium) 75 Mcg Tablet, 1 TAB PO DAILY for HYPOTHYROIDISM, #30 Ref 5 (Reported) Entered as Reported by: AMANDA AGUILA on 10/24/191702 Last Taken: UNKNOWN on Unknown Date & Time Last Action: New Order on 10/24/191702 by AMANDA AGUILA Metoprolol Succinate (Toprol Xl) 25 Mg Tab.er.24h, 25 MG PO DAILY for FOR HYPERTENSION, #30 Ref 0 Prescribed by: CARLOS MOYA on 10/28/19 1139 Patient Instructions Patient Instructions > 30 in face to face x2 decrease home BP meds, has CAD, needs B-camacho, arb f/u at Hemodynamically unstable?: No Is patient in severe pain?: No Is NPO status required?: No CARLOS MOYA MD Oct 28, 2019 11:42
--- NOTE | 2019-10-28 11:55 | NUR ---
SW following. Discussed with RN, pt from home, gets around fine. PT/OT recommending outpatient therapy. SW discussed with RN, pt will need an outpatient therapy script. Pt plans to return to work after discharge. Discharge order for home with self care.
[2019-10-28 15:00] VITALS: BP 135/82
--- NOTE | 2019-10-28 15:34 | NUR ---
Discharge instructions given with follow up to Outpatient PT 3x/week for 1 month, see instruction sheets for details, copies of chart given per patient request, awaiting transportation home with son
--- NOTE | 2019-10-28 16:14 | NUR ---
Discharged per w/c, belongings taken with him
== END 2019-10-28 16:22 | disposition home or self-care (01) | DRG 70 ==
LOC: ER 12:55 → CVICU 14:11 → 4 NORTH 10-27 15:35
PROVIDERS: ADMIT Family Medicine; ATTEND Family Medicine
DX: G93.41 Metabolic encephalopathy (principal); K85.20 Alcohol induced acute pancreatitis without necrosis or infection; E43 Unspecified severe protein-calorie malnutrition; C78.7 Secondary malignant neoplasm of liver and intrahepatic bile duct; E22.2 Syndrome of inappropriate secretion of antidiuretic hormone; R18.8 Other ascites; Z68.33 Body mass index [BMI] 33.0-33.9, adult; E66.9 Obesity, unspecified; E78.5 Hyperlipidemia, unspecified; E87.6 Hypokalemia; F10.10 Alcohol abuse, uncomplicated; I10 Essential (primary) hypertension; I25.10 Atherosclerotic heart disease of native coronary artery without angina pectoris; I70.0 Atherosclerosis of aorta; K57.30 Diverticulosis of large intestine without perforation or abscess without bleeding; K72.90 Hepatic failure, unspecified without coma; K75.81 Nonalcoholic steatohepatitis (NASH); N28.9 Disorder of kidney and ureter, unspecified; S00.03XA Contusion of scalp, initial encounter; S60.221A Contusion of right hand, initial encounter; T79.6XXA Traumatic ischemia of muscle, initial encounter; W18.30XA Fall on same level, unspecified, initial encounter; Y93.89 Activity, other specified; Y92.89 Other specified places as the place of occurrence of the external cause; Y99.8 Other external cause status; Z82.49 Family history of ischemic heart disease and other diseases of the circulatory system; Z87.891 Personal history of nicotine dependence; Z90.5 Acquired absence of kidney; Y90.9 Presence of alcohol in blood, level not specified; I25.2 Old myocardial infarction; Z85.528 Personal history of other malignant neoplasm of kidney; M19.90 Unspecified osteoarthritis, unspecified site; R59.0 Localized enlarged lymph nodes; Z79.899 Other long term (current) drug therapy
CPT/HCPCS: 36415; 70450; 71045; 71275; 72125; 74177; 80048; 80053; 80076; 82274; 82533; 82550; 83605; 83690; 83735; 83880; 83930; 83935; 84100; 84300; 84443; 84484; 85025; 85379; 85610; 86301; 87040; 87045; 87086; 87493; 90471; 90715; 93005; 93880; 96361; 96365; 96368; 96375; J1650; J2405; J2543; J3010; J3370; J3475; J3490; J7030; J7040; Q9967; 97110-GP; 97112-GP; 99291-25; G0378